=== PATIENT | male | born 1960 | race American Indian/Alaskan Native ===

== ENCOUNTER 2016-09-09 09:36 | Inpatient (IN) | payer MEDICARE, OTHER ==
[2016-09-09] MEDS ORDERED: NACL 0.9% 1000 ML 1,000 ML IV ONE (10:38)
--- NOTE | 2016-09-09 10:44 | Emergency Department Report ---
HPI - General Chief Complaint: Hyperglycemia Time Seen by Provider: 09/09/16 10:30 - HPI HPI: Room 2 The patient is a 56-year-old male presenting with a chief complaint of hyperglycemia. Family states patient appeared confused yesterday as he was "talking nonsense." Family member states the patient said things such as "food out of the stove" when there was no food there. The patient was asking where his urine was sitting right in front of him. The family member states she checked the patient's blood sugar read "high." The patient states she gave him an extra metformin and encourage him to drink water but the blood glucose remained high. Family states the patient has seemed confused and sleeping all day. The patient denies any complaints. When asked how his feeling the patient states "I feel all right." Patient denies pain of any type, shortness breath, nausea/vomiting or fever. Family states the patient has been compliant with his medications daily Location: Mental state, blood sugar Duration: Since yesterday Quality: "High", confused Severity: Moderate Modifying factors: see above Context: see above Mode of transportation: not driving ED Past Medical Hx - Past Medical History Hx Hypertension: Yes Hx CVA: Yes (with residual left-sided weakness) Hx Diabetes: Yes Additional medical history: elevated cholesterol - Surgical History Past Surgical History?: No - Family History Family history: no significant - Social History Smoking Status: Former Smoker (none for over 30 years) Substance Use Type: None (denies illicit drug use), Alcohol (occasional) - Medications Home Medications: Home Medications Medication Instructions Recorded Confirmed Last Taken Type Furosemide 40 mg PO DAILY 01/23/16 01/23/16 Unknown History Indomethacin 75 mg PO PRN 01/23/16 Unknown History Labetalol HCl 300 mg PO BID 01/23/16 Unknown History Losartan/Hydrochlorothiazide PO DAILY 01/23/16 Unknown History [Losartan-Hctz 100-25 mg Tab] NIFEdipine XL [Procardia Xl] 90 mg PO QDAY 01/23/16 Unknown History Potassium Chloride [Klor-Con] PO DAILY 01/23/16 Unknown History Pravastatin 20 mg PO DAILY 01/23/16 Unknown History cloNIDine [Catapres] 0.2 mg PO TID 01/23/16 Unknown History glipiZIDE 10 mg PO INTRAOP 01/23/16 Unknown History metFORMIN [Glucophage] 1,000 mg PO BID 01/23/16 Unknown History ED Review of Systems ROS: Stated complaint: POSS HIGH BS/CONFUSION Other details as noted in HPI Comment: All other systems reviewed and negative Constitutional: malaise. denies: fever Eyes: denies: eye pain, eye discharge, vision change ENT: denies: ear pain, throat pain Respiratory: denies: cough, shortness of breath, wheezing Cardiovascular: denies: chest pain, palpitations Endocrine: other (hyperglycemia) Gastrointestinal: denies: abdominal pain, nausea, diarrhea Genitourinary: denies: urgency, dysuria Musculoskeletal: denies: back pain, joint swelling, arthralgia Skin: denies: rash, lesions Neurological: confusion. denies: headache, weakness, paresthesias Psychiatric: denies: anxiety, depression Hematological/Lymphatic: denies: easy bleeding, easy bruising Physical Exam - Physical Exam Vital Signs: Vital Signs 09/09/16 09:53 Temperature 98.3 F Pulse Rate 77 Respiratory 18 Rate Blood Pressure 97/65 O2 Sat by Pulse 99 Oximetry Physical Exam: GENERAL: The patient is well-developed well-nourished male lying on stretcher appearing fatigued but not in acute distress. [] HEENT: Normocephalic. Atraumatic. Extraocular motions are intact. NECK: Supple. No meningitic signs are noted. Trachea midline CHEST/LUNGS: Clear to auscultation. There is no respiratory distress noted. HEART/CARDIOVASCULAR: Regular. There is no tachycardia. There is no gallop rub or murmur. ABDOMEN: Abdomen is soft, nontender. Patient has normal bowel sounds. There is no abdominal distention. SKIN: There is no rash. There is no diaphoresis. NEURO: The patient is awake, alert, and oriented. The patient is cooperative. Cranial nerves II through XII grossly intact with exception of cranial nerve XI in the left (old from previous CVA). Left upper extremity weakness and decreased tape transferrer on the left secondary to previous CVA The patient has normal speech MUSCULOSKELETAL: There is no evidence of acute injury. ED Course Vital Signs 09/09/16 09:53 Temperature 98.3 F Pulse Rate 77 Respiratory 18 Rate Blood Pressure 97/65 O2 Sat by Pulse 99 Oximetry ED Medical Decision Making - Lab Data Result diagrams: 09/09/16 11:04 09/09/16 09:57 Laboratory Tests 09/09/16 09/09/1609/09/17 09:57 10:36 10:36 WBC RBC Hgb Hct MCV MCH MCHC RDW Plt Count Lymph % (Auto) [place] % (Auto) Eos % (Auto) Baso % (Auto) Lymph # [place] # Eos # Baso # Seg Neutrophils % Seg Neutrophils # VBG pH Sodium 114 L* Potassium 6.6 H* Chloride 77.0 L Carbon Dioxide 15 L Anion Gap 29 BUN 77 H Creatinine 4.9 H Estimated GFR 15 BUN/Creatinine Ratio 15.71 Glucose 759 H* Calcium 8.8 Total Creatine Kinase 5141 H CK-MB (CK-2) 89.1 H CK-MB (CK-2) Rel Index 1.7 Troponin T 0.102 H* Triglycerides 491 H Cholesterol 132 LDL Cholesterol Direct TNR HDL Cholesterol 22 L Cholesterol/HDL Ratio 6.00 TSH 0.840 Free T4 1.37 Ketones 09/09/16 09/09/16 11:04 11:04 WBC 10.1 RBC 4.18 Hgb 10.8 L Hct 33.8 L MCV 81 L MCH 26 L MCHC 32 RDW 19.8 H Plt Count Lymph % (Auto) 11.2 L [place] % (Auto) 7.7 H Eos % (Auto) 1.3 Baso % (Auto) 0.5 Lymph # 1.1 L [place] # 0.7 Eos # 0.1 Baso # 0.1 Seg Neutrophils % 79.3 H Seg Neutrophils # 7.7 VBG pH 7.280 L Sodium Potassium Chloride Carbon Dioxide Anion Gap BUN Creatinine Estimated GFR BUN/Creatinine Ratio Glucose Calcium Total Creatine Kinase CK-MB (CK-2) CK-MB (CK-2) Rel Index Troponin T Triglycerides Cholesterol LDL Cholesterol Direct HDL Cholesterol Cholesterol/HDL Ratio TSH Free T4 Ketones - EKG Data -: EKG Interpreted by [place] EKG shows normal: sinus rhythm Rate: normal - EKG Data When compared to previous EKG there are: previous EKG unavailable Interpretation: other (no acute ischemic changes seen.) - Radiology Data Radiology results: report reviewed (CT head), image reviewed (CT head) CT head (read by radiologist)-no acute intracranial abnormality - Differential Diagnosis DKA, ICH, dehydration, hyperglycemia Critical care attestation.: If time is entered above; I have spent that time in minutes in the direct care of this critically ill patient, excluding procedure time. ED Disposition Clinical Impression: Acute renal failure, DKA (diabetic ketoacidoses), Rhabdomyolysis Disposition: OP ADMITTED IP TO THIS HOSP Is pt being admited?: Yes Does the pt Need Aspirin: No Condition: Serious Instructions: Diabetic Ketoacidosis (ED) Referrals: PRIMARY CARE, [Primary Care Provider] - 3-5 Days Time of Disposition: 12:08 (hospitalist paged)
[2016-09-09 11:16] LABS: Eosinophils % (Auto) 1.3 % (0.0-4.3)
[2016-09-09 11:29] LABS: Hematocrit 33.8 % (35.5-45.6); Hemoglobin 10.8 gm/dl (11.8-15.2); Mean Corpuscular HGB Conc 32 % (32-34); Mean Corpuscular Hemoglobin 26 pg (28-32); Mean Corpuscular Volume 81 fl (84-94); Red Blood Count 4.18 M/mm3 (3.65-5.03); Red Cell Distribution Width 19.8 % (13.2-15.2); White Blood Count 10.1 K/mm3 (4.5-11.0)
[2016-09-09 11:30] LABS: Basophils % (Auto) 0.5 % (0.0-1.8)
[2016-09-09 11:38] LABS: BUN/Creatinine Ratio 15.71; Calcium 8.8 mg/dL (8.4-10.2)
[2016-09-09 11:40] LABS: Potassium 6.6 mmol/L (3.6-5.0)
[2016-09-09 11:40] LABS: Creatine Kinase MB 89.1 ng/mL (0.0-4.0)
[2016-09-09] MEDS ORDERED: D50W (25GM) IV PRN ×4 (11:44→13:55)
[2016-09-09 11:54] LABS: Cholesterol 132 mg/dL (50-199); HDL Cholesterol 22 mg/dL (40-59); LDL Cholesterol,Direct TNR mg/dL (50-130); Triglycerides 491 mg/dL (2-149)
[2016-09-09] MEDS ORDERED: NovoLIN R 100 UNITS in NACL 0.9% 99 ML IV SCH ×2 (12:00→14:00)
--- NOTE | 2016-09-09 12:00 | Admit Criteria Form ---
Admission Criteria Documentation: DIABETES Clinical Indications for Admission to Inpatient Care (Place 'X' for any and all applicable criteria): Admission is indicated by presence of ALL (if I & II) or ANY ONE (if III or IV) of the following (1)(2)(3)(4): [X ]I. Diabetes is uncontrolled as indicated by ANY ONE of the following: [ X]a) Diabetic ketoacidosis as indicated by ALL of the following (8): [ X]i) Hyperglycemia (eg, plasma glucose greater than 200 mg /dL (11.1 mmol/L)) [X ]ii) Acidosis (eg, arterial pH less than 7.30, serum bicarbonate level less than 15 mEq/L (mmol/L)) [X ]iii) Moderate ketonuria or ketonemia [ ]b) Hyperglycemic hyperosmolar state as indicated by ALL of the following(9)(10): [ ]i) Neurologic dysfunction (eg, stupor, coma, hemiparesis , seizure)(13) [ ]ii) Plasma glucose greater than 600 mg/dL (33.3 mmol/L) [ ]iii) Serum osmolality greater than 320 mOsm/kg (mmol/kg) [X ]c) Severe signs or symptoms secondary to hyperglycemia indicated by ANY ONE of the following: [ ]i) Altered mental status(10) [ ]ii) Significant hypovolemia or dehydration [ ]iii) Intractable nausea or vomiting [ ]iv) Unexplained fever or severe infection [X ]v) Severe electrolyte abnormality (eg, hypokalemia, hyperkalemia, hypernatremia) [X ]II. Management at other levels of care (Also use Diabetes: Observation Care as appropriate) is not feasible because of ANY ONE of the following: [X ]a) Condition was not adequately corrected with treatment at other levels of care. [ ]b) Treatment at other levels of care is not appropriate because of condition severity (eg, hyperosmolar coma). [ ]III. Contraindications and/or Inappropriate clinical situations for Observational Care in patients with Diabetes, when ANY ONE of the following is required: [ ]a) Patient require specific diagnostic workup or therapeutic intervention 22 [ ]b) Patient with abnormal vital signs or altered mental status 23 [ ]IV. General contraindications and/or Inappropriate clinical situations for Observational Care in patients with Diabetes, when ANY ONE of the following is required: [ ]a) Prediction of prolongation of LOS based on ANY ONE of the following may be considered as a contraindication for observational care 2, 3, 4, 5, 6, 7, 8, 9, 10, 11 [ ]i) Age > 65 yrs. [ ]ii) Patient arriving by ambulance [ ]iii) Patient with high acuity [ ]iv) Patient requiring vital sign monitoring [ ]v) Patient on IV medication [ ]b) Systolic blood pressures 180mmHg 3,12 [ ]c) Patient with altered mental status including delirium and other alteration of consciousness, (3) [ ]d) Patient whose discharge disposition will be to a prison home or rehabilitation home should not be managed in Emergency Department Observation Unit. CMS rule requires 3 days hospital stay before such placement.3,13 [ ]e) Patient with failure to thrive due to broad array of etiologies 3,16,17 [ ]f) Inability to ambulate 3,14 Extended stay beyond goal length of stay may be needed for(3)(20): [ ]a) Treatment of precipitating causes [ ]b) Development of hypoglycemia [ ]c) Complications of treatment [ ]d) Complications of decompensated diabetes (eg, acute gastric dilatation, persistent metabolic or neurologic derangement) [ ]e) Active Comorbidities [ ]f) Older patients( 65 years or older) The original [facility] content created by [employer] has been revised. The portions of the content which have been revised are identified through the use of italic text or in bold,and [facility] has neither reviewed nor approved the modified material. All other unmodified content is copyright [facility]. Please see references footnoted in the original [facility] edition 2016 Admission Criteria Met: Yes
[2016-09-09 12:07] LABS: Creatine Kinase 5141 units/L (55-170)
--- NOTE | 2016-09-09 12:10 | Cat Scan Report ---
CT scan of head without contrast: Findings: Ventricles are normal in size and midline in location. No definite evidence of acute ischemia or hemorrhage. Periventricular area of low attenuation. Chronic ischemia right cerebellum. No extra-axial fluid collection. Normal sinuses and mastoid air cells. Impression: No acute intracranial abnormality.
[2016-09-09 12:36] LABS: BUN/Creatinine Ratio 15.83; Calcium 8.6 mg/dL (8.4-10.2); Chloride 82.1 mmol/L (98-107); Potassium 5.9 mmol/L (3.6-5.0)
[2016-09-09 12:47] LABS: Magnesium 2.5 mg/dL (1.7-2.3); Phosphorous 5.1 mg/dL (2.5-4.5)
[2016-09-09 13:00] LABS: Platelet Count 167 K/mm3 (140-440)
[2016-09-09] MEDS ORDERED: ZOFRAN IV PRN (13:55)
[2016-09-09] MEDS ORDERED: MILK OF MAGNESIA PO PRN (13:55)
[2016-09-09] MEDS ORDERED: MORPHINE IV PRN (13:55)
[2016-09-09] MEDS ORDERED: ALUM-MAG HYDROX-SIMETH 200-200-20MG/5ML PO PRN (13:55)
[2016-09-09] MEDS ORDERED: DULCOLAX PR PRN (13:55)
[2016-09-09] MEDS ORDERED: KCL 10MEQ/100ML 10 MEQ/100 ML BAG IV SCH (14:00)
[2016-09-09] MEDS ORDERED: D5W/0.45% NACL/KCL 20 MEQ 20 MEQ/1,000 ML BAG IV SCH (14:00)
[2016-09-09] MEDS ORDERED: APRESOLINE IV PRN (14:07)
--- NOTE | 2016-09-09 14:18 | History and Physical Report ---
History of Present Illness Date of examination: 09/09/16 Date of admission: 09/09/2016 Chief complaint: Altered mental status encephalopathy History of present illness: Patient 56-year-old male well known to myself history of CVA, hypertension, diabetes, hyperlipidemia. Patient. Was in the usual state of health doing well until yesterday at approximately 3 PM noted patient not acting the same. stated patient started repeating himself and had some hallucinations such as take the food out of the stove when there was nothing cooking. Denied fever. states at that this did not improve she called 911 to come to the hospital. Upon hospital at this time patient is still not his usual self but better. He is able to communicate without any hallucinations. at the bedside stating patient immediately got better after some fluids. Patient recently seen in the office A1c was 6.4 blood pressure had optimal control. Lasts chemistry did not show any evidence of renal failure. At this time patient did state that he had episode of incontinence of urine now and this is atypical for him. Patient states despite drinking water the last 24 hours he had a decrease in urine output. Present patient denies any pain denies any shortness of breath no different exertion orthopnea no PND. He does explain a generalized malaise. Past History Past Medical History: arrhythmia, arthritis, diabetes, hypertension, hyperlipidemia, stroke. denies: acute OH, atrial fib, anemia, CAD, cancer, COPD , dialysis, DVT, ESRD, GERD, heart failure, hepatitis, HIV/AIDS, hyperthyroidism , hypothyroidism, liver disease, migraines, PVD, pulmonary embolism, renal failure, seizures Past Surgical History: No surgical history Social history: , lives with family, full code. denies: smoking, alcohol abuse, prescription drug abuse, IV drug use Family history: diabetes, hypertension Medications and Allergies Allergies Allergy/AdvReac Type Severity Reaction Status Date / Time No Known Allergies Allergy Unverified 01/23/16 10:13 Home Medications Medication Instructions Recorded Confirmed Last Taken Type Furosemide 40 mg PO DAILY 01/23/16 09/09/16 Unknown History Indomethacin 75 mg PO BID PRN 01/23/16 09/09/16 Unknown History Labetalol HCl 300 mg PO BID 01/23/16 09/09/16 Unknown History Losartan/Hydrochlorothiazide 1 tab PO DAILY 01/23/16 09/09/16 Unknown History [Losartan-Hctz 100-25 mg Tab] NIFEdipine XL [Procardia Xl] 90 mg PO QDAY 01/23/16 09/09/16 Unknown History Potassium Chloride [Klor-Con] 20 meq PO DAILY 01/23/16 09/09/16 Unknown History Pravastatin 20 mg PO DAILY 01/23/16 09/09/16 Unknown History cloNIDine [Catapres] 0.2 mg PO TID 01/23/16 09/09/16 Unknown History glipiZIDE 10 mg PO DAILY 01/23/16 09/09/16 Unknown History metFORMIN [Glucophage] 850 mg PO DAILY 01/23/16 09/09/16 Unknown History Active Meds: Active Medications Dextrose (D50w (25gm)) 0 ml IV ONCE PRN PRN Reason: Hypoglycemia Insulin Human Regular 100 (units/ Sodium Chloride) 100 mls @ 8 mls/hr IV TITR JUAN ALBERTO; 8 UNITS/HR PRN Reason: Protocol Last Admin: 09/09/16 13:14 Dose: 8 units/hr, 8 mls/hr Review of Systems Constitutional: fatigue, weakness, malaise, no weight loss, no weight gain, no fever, no chills, no sweats, no night sweats, no anorexia, no lethargy, no chronic headaches, no poor appetite, no daytime sleepiness, no chronic pain Ears, nose, mouth and throat: no ear pain, no nasal congestion, no dental pain, no dysphagia, no hoarseness, no swelling in throat, no voice changes, no headache, no vertigo, no pain front of neck, no neck fullness/pressure, no neck lump Cardiovascular: no chest pain, no orthopnea, no palpitations, no rapid/ irregular heart beat, no edema, no syncope, no lightheadedness, no shortness of breath, no dyspnea on exertion, no paroxysmal nocturnal dyspnea, no claudication , no phlebitis, no high blood pressure, no leg edema, no decreased exercise tolerance Respiratory: no cough, no cough with sputum, no excessive sputum, no hemoptysis , no dyspnea on exertion, no congestion, no wheezing, no pain, no pain on inspiration, no respiratory infections, no home oxygen, no other Gastrointestinal: nausea, no abdominal pain, no vomiting, no diarrhea, no constipation, no change in bowel habits, no hematemesis, no coffee ground emesis , no BRBPR, no melena, no hematochezia, no loss of appetite, no early satiety, no heartburn, no indigestion, no excessive gas, no dyspepsia/bloating, no early satiety Genitourinary Male: dysuria, urinary frequency, urinary hesitancy, erectile dysfunction, polyuria, urinary retention, no hematuria, no flank pain, no discharge, no nocturia, no incontinence, no genital pain, no genital sores, no impotence, no decreased libido, no testicular pain, no testicular lump, no difficulties fathering child, no kidney stones Rectal: no pain, no incontinence, no bleeding, no itching, no hemorrhoids Musculoskeletal: no neck stiffness, no neck pain, no shooting arm pain, no arm numbness/tingling, no hot joints, no muscle weakness, no myalgias, no atrophy, no frequent falls, no fractures, no loss of height, no prior amputations, no arthritis Neurological: change in mentation, confusion, no head injury, no transient paralysis, no paralysis, no weakness, no parathesias, no numbness, no tingling, no seizures, no syncope, no tremors, no ataxia, no vertigo, no headaches, no migraines, no tic, no convulsions, no aphasia, no memory loss, no changes in smell/taste, no gait dysfunction, no motor disturbance, no sensory deficit, no double vision, no loss of vision, no hearing difficulties, no paralysis, no spasticity Psychiatric: no insomnia, no hypersomnia, no suicidal ideation, no paranoia, no depression, no hopelessness, no anhedonia, no difficulties concentrating, no confusion, no irritability Endocrine: polyphagia, excessive thirst, high blood sugars, fatigue, no cold intolerance, no polydipsia, no polyuria, no nocturia, no excessive sweating, no flushing, no increase in ring/shoe/hat size, no deepening of the voice, no palpatations, no recent glucocorticoid use Hematologic/Lymphatic: no easy bruising, no easy bleeding, no lymphadenopathy, no lymphedema, no other Allergic/Immunologic: no urticaria, no wheezing, no anaphylaxis, no gluten intolerance, no seasonal allergies, no other Exam - Constitutional Vitals: Temp Pulse Resp BP Pulse Ox 98.3 F 70 14 101/71 97 09/09/16 09:53 09/09/16 13:30 09/09/16 13:30 09/09/16 13:30 09/09/16 13:30 General appearance: Present: no acute distress, well-nourished - EENT Eyes: Present: PERRL ENT: hearing intact, clear oral mucosa, dentition normal - Neck Neck: Present: supple, normal ROM. Absent: rigidity, enlarged thyroid, masses or JVD, carotid bruits - Respiratory Respiratory effort: normal Respiratory: bilateral: CTA - Cardiovascular Rhythm: regular Heart Sounds: Present: S1 & S2, gallop - Extremities Extremities: pulses intact, pulses symmetrical, No edema, normal temperature, Full ROM Peripheral Pulses: within normal limits - Abdominal General gastrointestinal: Present: soft, non-tender, non-distended, rigid, normal bowel sounds. Absent: hypoactive bowel sounds, absent bowel sounds, hepatomegaly, splenomegaly, mass, hernia Male genitourinary: Present: tender. Absent: right inguinal hernia, left inguinal hernia, penile edema, scrotal edema, right inguinal lymphadenopathy, left inguinal lymphadenopathy - Rectal Rectal Exam: deferred - Integumentary Integumentary: Present: clear, warm - Musculoskeletal Musculoskeletal: generalized weakness - Psychiatric Psychiatric: intact judgment & insight, cooperative - Neurologic Neurologic: focal deficits, other (dense hemiparesis) Results - Labs CBC & Chem 7: 09/09/16 11:04 09/09/16 12:11 Labs: Laboratory Last Values WBC 10.1 K/mm3 (4.5-11.0) 09/09/16 11:04 RBC 4.18 M/mm3 (3.65-5.03) 09/09/16 11:04 Hgb 10.8 gm/dl (11.8-15.2) L 09/09/16 11:04 Hct 33.8 % (35.5-45.6) L 09/09/16 11:04 MCV 81 fl (84-94) L 09/09/16 11:04 MCH 26 pg (28-32) L 09/09/16 11:04 MCHC 32 % (32-34) 09/09/16 11:04 RDW 19.8 % (13.2-15.2) H 09/09/16 11:04 Plt Count 167 K/mm3 (140-440) 09/09/16 11:04 Lymph % (Auto) 11.2 % (13.4-35.0) L 09/09/16 11:04 [place] % (Auto) 7.7 % (0.0-7.3) H 09/09/16 11:04 Eos % (Auto) 1.3 % (0.0-4.3) 09/09/16 11:04 Baso % (Auto) 0.5 % (0.0-1.8) 09/09/16 11:04 Lymph # 1.1 K/mm3 (1.2-5.4) L 09/09/16 11:04 [place] # 0.7 K/mm3 (0.0-0.8) 09/09/16 11:04 Eos # 0.1 K/mm3 (0.0-0.4) 09/09/16 11:04 Baso # 0.1 K/mm3 (0.0-0.1) 09/09/16 11:04 Seg Neutrophils % 79.3 % (40.0-70.0) H 09/09/16 11:04 Seg Neutrophils # 7.7 K/mm3 (1.8-7.7) 09/09/16 11:04 VBG pH 7.280 (7.320-7.420) L 09/09/16 11:04 Sodium 118 mmol/L (137-145) L* 09/09/16 12:11 Potassium 5.9 mmol/L (3.6-5.0) H 09/09/16 12:11 Chloride 82.1 mmol/L (98-107) L 09/09/16 12:11 Carbon Dioxide 16 mmol/L (22-30) L 09/09/16 12:11 Anion Gap 26 mmol/L 09/09/16 12:11 BUN 76 mg/dL (9-20) H 09/09/16 12:11 Creatinine 4.8 mg/dL (0.8-1.5) H 09/09/16 12:11 Estimated GFR 15 ml/min 09/09/16 12:11 BUN/Creatinine Ratio 15.83 % 09/09/16 12:11 Glucose 726 mg/dL (75-100) H* 09/09/16 12:11 Calcium 8.6 mg/dL (8.4-10.2) 09/09/16 12:11 Phosphorus 5.1 mg/dL (2.5-4.5) H 09/09/16 12:11 Magnesium 2.5 mg/dL (1.7-2.3) H 09/09/16 12:11 Total Creatine Kinase 5141 units/L (55-170) H 09/09/16 10:36 CK-MB (CK-2) 89.1 ng/mL (0.0-4.0) H 09/09/16 10:36 CK-MB (CK-2) Rel Index 1.7 (0-4) 09/09/16 10:36 Troponin T 0.102 ng/mL (0.00-0.029) H* 09/09/16 10:36 Triglycerides 491 mg/dL (2-149) H 09/09/16 10:36 Cholesterol 132 mg/dL (50-199) 09/09/16 10:36 LDL Cholesterol Direct TNR 09/09/16 10:36 HDL Cholesterol 22 mg/dL (40-59) L 09/09/16 10:36 Cholesterol/HDL Ratio 6.00 % 09/09/16 10:36 TSH 0.840 mlU/mL (0.270-4.200) 09/09/16 10:36 Free T4 1.37 ng/dL (0.76-1.46) 09/09/16 10:36 Plasma/Serum Alcohol < 0.01 gm% (0-0.07) 09/09/16 10:37 Ketones mmol/L (-0.28) 09/09/16 09:57 - Imaging and Cardiology CT Scan - head: image reviewed Assessment and Plan Assessment and plan: Patient did require 46 minutes of face time secondary to the high probability of clinically significant and sudden life threatening deterioration. Patient will cry more full attention and time spent performing reportable procedures including but not limited to data review and interpretation patient assessment and monitoring of vital signs and electrolytes and documentation and medication orders and management as well as discussion with the we'll plan a care advance directives. So spent another 14 minutes of coordination of care with review bilateral renal ultrasound chest x-ray, urine. Advance Directives: Yes VTE prophylaxis?: Chemical Plan of care discussed with patient/family: Yes - Patient Problems (1) Encephalopathy acute Current Visit: Yes Status: Acute Plan to address problem: Patient with acute encephalopathy unclear of exact etiology most likely multifactorial DKA and sepsis. Patient had foul-smelling urine and was unable to obtain urine at this point. Patient also was hypotensive with decreased urine output foul-smelling urine evidence of dehydration. Asked highly suspect underlying sepsis and we will treat with Rocephin. Symptoms have improved with IV volume hydration. Still need to hold antihypertensives for now. (2) Acute renal failure Current Visit: Yes Status: Acute Qualifiers: Acute renal failure type: A Plan to address problem: Patient with acute renal failure. This may be acute on chronic renal failure. Clearly the patient has DKA however will need to rule out chronic kidney disease versus postobstructive uropathy. Patient's last chemistry showed no evidence of chronic kidney disease at all. So this could all be prerenal azotemia however need to rule out chronic kidney disease and obstruction. Since patient did have a decreased urine output. We'll order bilateral renal ultrasound. Follow-up chemistries in continue aggressive fluid with DKA protocol. (3) DKA (diabetic ketoacidoses) Current Visit: Yes Status: Acute Qualifiers: Diabetes mellitus type: type 1 Diabetes mellitus complication detail: D Plan to address problem: Ration with DKA was sustain off insulin. This is why I'm afraid may have a trigger for the DKA such as infection. Have not been totally ruled out we'll obtain chest x-ray we'll also obtain a UA when available. His blood sugars of greater than 700 address a direct on venous pH and chemistry as well. Patient also had hyperkalemia. We'll treat DKA protocol. Obtain electrolytes and correct magnesium and potassium as indicated. Place patient on insulin drip and may require insulin as outpatient now. (4) Rhabdomyolysis Current Visit: Yes Status: Acute Qualifiers: Rhabdomyolysis type: R Encounter type: E Plan to address problem: Rhabdomyolysis most likely secondary to DKA renal failure. Treat with IV hydration. Correction of underlying etiology which is DKA (5) Hyperkalemia Current Visit: No Status: Acute Plan to address problem: Secondary to DKA we'll correct (6) Sepsis Current Visit: Yes Status: Acute Qualifiers: Sepsis type: S Plan to address problem: Highly suspect sepsis in this individual as evidence by my previous evaluation. We'll treat with Rocephin now and obtain blood cultures. Will titrate medical management when microbiology has been completed. (7) Hyponatremia Current Visit: Yes Status: Acute Plan to address problem: Hypernatremia for DKA this corrects when taking Accolate patient's for glucose.
--- NOTE | 2016-09-09 14:58 | XRay Report ---
AP CHEST: HISTORY: Short of breath AP view of the chest demonstrates a normal mediastinal and cardiac contour with clear lungs and normal bony and soft tissue structures. IMPRESSION: Unremarkable AP chest.
[2016-09-09 15:41] LABS: Magnesium 2.7 mg/dL (1.7-2.3)
[2016-09-09 15:58] LABS: BUN/Creatinine Ratio 16.73; Calcium 9.1 mg/dL (8.4-10.2); Chloride 88.1 mmol/L (98-107)
--- NOTE | 2016-09-09 16:02 | Ultrasound Report ---
Renal sonogram: History: Renal failure. Findings: Right kidney 10.4 x 4.1 x 5.0 cm. Cortical thickness 1.1 cm. Left kidney 10.5 x 5.1 x 5.1 cm. Cortical thickness 1.3 cm. Cyst left kidney measures 1.7 x 1.1 x 1.5 cm. Impression: Cyst left kidney.
[2016-09-09 16:33] LABS: Urine Drugs of Abuse Note Disclamer
[2016-09-09 16:48] LABS: Bacteria,Urine 1+ /HPF (Negative); Bilirubin,Urine NEG (Negative); Blood,Urine MOD (Negative); Ketones,Urine NEG (Negative); Leukocyte Esterase,Urine NEG (Negative); Mucus,Urine FEW /HPF; Nitrite,Urine NEG (Negative); Protein,Urine <15 mg/dL mg/dL (Negative); Urobilinogen,Urine < 2.0 mg/dL (<2.0)
[2016-09-09] MEDS: ROCEPHIN/NS 1 GM/50 ML 1 GM/50 ML BAG IV SCH (17:38)
[2016-09-09] MEDS ORDERED: NACL 0.9% 1000 ML 0 ML ONE (19:52)
[2016-09-09] MEDS ORDERED: NACL 0.9% 500 ML 500 ML ONE (19:55)
[2016-09-09] MEDS: CATAPRES PO SCH (20:15)
[2016-09-09] MEDS ORDERED: NACL 0.9% 500 ML 500 ML IV ONE (21:17)
[2016-09-09 21:24] LABS: BUN/Creatinine Ratio 16.04; Calcium 9.5 mg/dL (8.4-10.2); Chloride 92.8 mmol/L (98-107); Potassium 4.9 mmol/L (3.6-5.0)
[2016-09-09] MEDS: NovoLIN R 100 UNITS in NACL 0.9% 99 ML IV SCH (21:40)
[2016-09-09] MEDS: D5/0.45NS 1,000 ML IV SCH (21:49)
[2016-09-09] MEDS: NORMODYNE PO SCH (21:51)
[2016-09-09] MEDS ORDERED: NON-FORMULARY (Labetalol Hcl [Labetalol Hcl] 300 MG) PO SCH (22:00)
[2016-09-10 00:07] LABS: BUN/Creatinine Ratio 17.11; Potassium 4.6 mmol/L (3.6-5.0)
[2016-09-10] MEDS: D5/0.45NS 1,000 ML IV SCH (05:16)
[2016-09-10 05:58] LABS: BUN/Creatinine Ratio 19.25; Calcium 8.6 mg/dL (8.4-10.2); Chloride 96.4 mmol/L (98-107); Potassium 3.6 mmol/L (3.6-5.0)
[2016-09-10 06:01] LABS: Basophils % (Auto) 0.7 % (0.0-1.8); Eosinophils % (Auto) 3.5 % (0.0-4.3); Hematocrit 35.7 % (35.5-45.6); Hemoglobin 11.6 gm/dl (11.8-15.2); Mean Corpuscular HGB Conc 32 % (32-34); Mean Corpuscular Hemoglobin 26 pg (28-32); Mean Corpuscular Volume 81 fl (84-94); Platelet Count 121 K/mm3 (140-440); Red Cell Distribution Width 18.8 % (13.2-15.2); White Blood Count 7.9 K/mm3 (4.5-11.0)
[2016-09-10] MEDS: NovoLIN R 100 UNITS in NACL 0.9% 99 ML IV SCH (08:00)
--- NOTE | 2016-09-10 09:10 | Consultation ---
History of Present Illness - Reason for Consult Consult date: 09/10/16 DKA, metabolic acidosis Requesting physician: SHIRIN MENA - History of Present Illness 56 y/o male admitted with encephalopathy and found to have elevated blood sugar , metabolic acidosis and DKA. Past History Past Medical History: arrhythmia, arthritis, diabetes, hypertension, hyperlipidemia, stroke. denies: acute HI, atrial fib, anemia, CAD, cancer, COPD , dialysis, DVT, ESRD, GERD, heart failure, hepatitis, HIV/AIDS, hyperthyroidism , hypothyroidism, liver disease, migraines, PVD, pulmonary embolism, renal failure, seizures Past Surgical History: No surgical history Social history: , lives with family, full code. denies: smoking, alcohol abuse, prescription drug abuse, IV drug use Family history: diabetes, hypertension Medications and Allergies Allergies Allergy/AdvReac Type Severity Reaction Status Date / Time No Known Allergies Allergy Unverified 01/23/16 10:13 Home Medications Medication Instructions Recorded Confirmed Last Taken Type Furosemide 40 mg PO DAILY 01/23/16 09/09/16 Unknown History Indomethacin 75 mg PO BID PRN 01/23/16 09/09/16 Unknown History Labetalol HCl 300 mg PO BID 01/23/16 09/09/16 Unknown History Losartan/Hydrochlorothiazide 1 tab PO DAILY 01/23/16 09/09/16 Unknown History [Losartan-Hctz 100-25 mg Tab] NIFEdipine XL [Procardia Xl] 90 mg PO QDAY 01/23/16 09/09/16 Unknown History Potassium Chloride [Klor-Con] 20 meq PO DAILY 01/23/16 09/09/16 Unknown History Pravastatin 20 mg PO DAILY 01/23/16 09/09/16 Unknown History cloNIDine [Catapres] 0.2 mg PO TID 01/23/16 09/09/16 Unknown History glipiZIDE 10 mg PO DAILY 01/23/16 09/09/16 Unknown History metFORMIN [Glucophage] 850 mg PO DAILY 01/23/16 09/09/16 Unknown History Active Meds: Active Medications Al Hydrox/Mg Hydrox/Simethicone (Alum-Mag Hydrox-Simeth 842-224-08se/5ml) 30 ml PO Q4H PRN PRN Reason: Indigestion Bisacodyl (Dulcolax) 10 mg [place] QDAY PRN PRN Reason: constipation unrelieved by MOM Clonidine HCl (Catapres) 0.2 mg PO TID [facility] Last Admin: 09/09/16 20:15 Dose: Not Given Enoxaparin Sodium (Lovenox) 30 mg SUB-Q QDAY [facility] Hydralazine HCl (Apresoline) 10 mg IV Q4HR PRN PRN Reason: Hypertension SYS>160 Ceftriaxone Sodium (Rocephin/Ns 1 Gm/50 Ml) 1 gm in 50 mls @ 100 mls/hr IV Q24HR JUAN ALBERTO PRN Reason: Protocol Last Admin: 09/09/16 17:38 Dose: 100 mls/hr Dextrose/Sodium Chloride (D5/0.45ns) 1,000 mls @ 125 mls/hr IV DIRECT [facility] Last Admin: 09/10/16 05:16 Dose: 125 mls/hr Insulin Aspart (Novolog) 0 units SUB-Q ACHS [facility] PRN Reason: Protocol Labetalol HCl (Normodyne) 300 mg PO BID [facility] Last Admin: 09/09/16 21:51 Dose: Not Given Magnesium Hydroxide (Milk Of Magnesia) 30 ml PO Q4H PRN PRN Reason: Constipation Morphine Sulfate (Morphine) 2 mg IV Q4H PRN PRN Reason: Pain, Moderate (4-6) Nifedipine (Procardia Xl) 90 mg PO QDAY [facility] Ondansetron HCl (Zofran) 4 mg IV Q8H PRN PRN Reason: N/V unrelieved by Reglan Review of Systems All systems: negative Exam - Constitutional Vitals: Temp Pulse Resp BP Pulse Ox 98 F 70 15 121/77 99 09/10/16 08:00 09/10/16 08:30 09/10/16 08:30 09/10/16 08:30 09/10/16 08:30 General appearance: Present: no acute distress, well-nourished, other (eating) - EENT Eyes: Present: PERRL (strabismus) ENT: hearing intact, clear oral mucosa - Neck Neck: Present: supple, normal ROM - Respiratory Respiratory effort: normal Respiratory: bilateral: CTA - Cardiovascular Rhythm: regular Heart Sounds: Present: S1 & S2 - Extremities Extremities: no ischemia, No edema - Abdominal General gastrointestinal: Present: soft, non-tender Male genitourinary: Present: deferred - Rectal Rectal Exam: deferred - Integumentary Integumentary: Present: clear, warm - Musculoskeletal Musculoskeletal: strength equal bilaterally - Psychiatric Psychiatric: appropriate mood/affect - Neurologic Neurologic: CNII-XII intact Results - Labs CBC & Chem 7: 09/10/16 04:11 09/10/16 04:11 Labs: Abnormal lab results 09/09/16 09/09/16 09/09/16 Range/Units 15:14 15:14 20:21 Hgb (11.8-15.2) gm/dl MCV (84-94) fl MCH (28-32) pg RDW (13.2-15.2) % Plt Count (140-440) K/mm3 Ness % (Auto) (0.0-7.3) % Sodium 126 L D 131 L (137-145) mmol/L Chloride 88.1 L 92.8 L (98-107) mmol/L Carbon Dioxide 16 L 15 L (22-30) mmol/L BUN 77 H 77 H (9-20) mg/dL Creatinine 4.6 H 4.8 H (0.8-1.5) mg/dL Glucose 511 H* 120 H (75-100) mg/dL Phosphorus 5.0 H (2.5-4.5) mg/dL Magnesium 2.7 H (1.7-2.3) mg/dL 09/09/16 09/10/16 09/10/16 Range/Units 23:13 04:11 04:11 Hgb 11.6 L (11.8-15.2) gm/dl MCV 81 L (84-94) fl MCH 26 L (28-32) pg RDW 18.8 H (13.2-15.2) % Plt Count 121 L (140-440) K/mm3 Ness % (Auto) 8.0 H (0.0-7.3) % Sodium 129 L 132 L (137-145) mmol/L Chloride 92.0 L 96.4 L (98-107) mmol/L Carbon Dioxide 18 L 18 L (22-30) mmol/L BUN 77 H 77 H (9-20) mg/dL Creatinine 4.5 H 4.0 H (0.8-1.5) mg/dL Glucose 174 H 167 H (75-100) mg/dL Phosphorus (2.5-4.5) mg/dL Magnesium (1.7-2.3) mg/dL 09/10/16 Range/Units 04:11 Hgb (11.8-15.2) gm/dl MCV (84-94) fl MCH (28-32) pg RDW (13.2-15.2) % Plt Count (140-440) K/mm3 Ness % (Auto) (0.0-7.3) % Sodium (137-145) mmol/L Chloride (98-107) mmol/L Carbon Dioxide (22-30) mmol/L BUN (9-20) mg/dL Creatinine (0.8-1.5) mg/dL Glucose (75-100) mg/dL Phosphorus 4.9 H (2.5-4.5) mg/dL Magnesium (1.7-2.3) mg/dL - Imaging and Cardiology Chest x-ray: image reviewed (clear) Assessment and Plan 1. Primary has already stopped insulin, needs long acting insulin but primary only placed high dosed sliding scale 2. Primary started on abx therapy. Will defer to them 3. Continue volume resuscitation 4. Stable for transfer out of ICU
[2016-09-10] MEDS: CATAPRES PO SCH ×3 (09:39→21:47)
[2016-09-10] MEDS: NORMODYNE PO SCH ×2 (09:39→21:47)
[2016-09-10] MEDS: ROCEPHIN/NS 1 GM/50 ML 1 GM/50 ML BAG IV SCH (09:39)
[2016-09-10] MEDS: PROCARDIA XL PO SCH (09:39)
[2016-09-10] MEDS: LOVENOX SUB-Q SCH (09:40)
--- NOTE | 2016-09-10 10:08 | Consultation ---
History of Present Illness - Reason for Consult Consult date: 09/10/16 acute renal failure, chronic renal failure, hyperkalemia, metabolic acidosis - History of Present Illness Patient is a 56-year-old AAM with medical history significant for DM type 2, Hypertension, history of CVA, Left hemiplegia, hyperlipidemia and CKD ?stage was brought into the hospital by the family for altered MS. History is mostly obtained from his who was at the bedside, as patient couldn't remember the events. Per patient was confused and had hallucinations. He had a decreased urine output of one day duration. On presentation he was found to have DKA, blood sugar of 749, potassium of 6.6, Sodium 114 and creatinine 4.9. The metabolic parameters are much better today. His baseline creatinine ia around 2 and he is currently not followed by any [employer]. Insulin drip was stopped this morning. His MS is better today. There was no h/o N, V, D, dysuria, hematuria, fever, dizziness, cough, cp, sob, rash, abd pain of syncope. Past History Past Medical History: arrhythmia, arthritis, diabetes, hypertension, hyperlipidemia, stroke. denies: acute TN, atrial fib, anemia, CAD, cancer, COPD , dialysis, DVT, ESRD, GERD, heart failure, hepatitis, HIV/AIDS, hyperthyroidism , hypothyroidism, liver disease, migraines, PVD, pulmonary embolism, renal failure, seizures Past Surgical History: No surgical history Social history: , lives with family, full code. denies: smoking, alcohol abuse, prescription drug abuse, IV drug use Family history: diabetes, hypertension Medications and Allergies Allergies Allergy/AdvReac Type Severity Reaction Status Date / Time No Known Allergies Allergy Unverified 01/23/16 10:13 Home Medications Medication Instructions Recorded Confirmed Last Taken Type Furosemide 40 mg PO DAILY 01/23/16 09/09/16 Unknown History Indomethacin 75 mg PO BID PRN 01/23/16 09/09/16 Unknown History Labetalol HCl 300 mg PO BID 01/23/16 09/09/16 Unknown History Losartan/Hydrochlorothiazide 1 tab PO DAILY 01/23/16 09/09/16 Unknown History [Losartan-Hctz 100-25 mg Tab] NIFEdipine XL [Procardia Xl] 90 mg PO QDAY 01/23/16 09/09/16 Unknown History Potassium Chloride [Klor-Con] 20 meq PO DAILY 01/23/16 09/09/16 Unknown History Pravastatin 20 mg PO DAILY 01/23/16 09/09/16 Unknown History cloNIDine [Catapres] 0.2 mg PO TID 01/23/16 09/09/16 Unknown History glipiZIDE 10 mg PO DAILY 01/23/16 09/09/16 Unknown History metFORMIN [Glucophage] 850 mg PO DAILY 01/23/16 09/09/16 Unknown History Active Meds: Active Medications Al Hydrox/Mg Hydrox/Simethicone (Alum-Mag Hydrox-Simeth [id number]/5ml) 30 ml PO Q4H PRN PRN Reason: Indigestion Bisacodyl (Dulcolax) 10 mg ID QDAY PRN PRN Reason: constipation unrelieved by MOM Clonidine HCl (Catapres) 0.2 mg PO TID [facility] Last Admin: 09/10/16 09:39 Dose: 0.2 mg Enoxaparin Sodium (Lovenox) 30 mg SUB-Q QDAY [facility] Last Admin: 09/10/16 09:40 Dose: 30 mg Hydralazine HCl (Apresoline) 10 mg IV Q4HR PRN PRN Reason: Hypertension SYS>160 Ceftriaxone Sodium (Rocephin/Ns 1 Gm/50 Ml) 1 gm in 50 mls @ 100 mls/hr IV Q24HR [facility] PRN Reason: Protocol Last Admin: 09/10/16 09:39 Dose: 100 mls/hr Dextrose/Sodium Chloride (D5/0.45ns) 1,000 mls @ 125 mls/hr IV DIRECT [facility] Last Admin: 09/10/16 05:16 Dose: 125 mls/hr Insulin Aspart (Novolog) 0 units SUB-Q ACHS [facility] PRN Reason: Protocol Labetalol HCl (Normodyne) 300 mg PO BID [facility] Last Admin: 09/10/16 09:39 Dose: 300 mg Magnesium Hydroxide (Milk Of Magnesia) 30 ml PO Q4H PRN PRN Reason: Constipation Morphine Sulfate (Morphine) 2 mg IV Q4H PRN PRN Reason: Pain, Moderate (4-6) Nifedipine (Procardia Xl) 90 mg PO QDAY [facility] Last Admin: 09/10/16 09:39 Dose: 90 mg Ondansetron HCl (Zofran) 4 mg IV Q8H PRN PRN Reason: N/V unrelieved by Reglan Review of Systems ROS unobtainable: due to mental status Exam - Vital Signs Vital signs: Vital Signs Temp Pulse Resp BP Pulse Ox 98.3 F 77 18 97/65 99 09/09/16 09:53 09/09/16 09:53 09/09/16 09:53 09/09/16 09:53 09/09/16 09:53 - General Appearance General appearance: well-developed, well-nourished, appears stated age, other ( no distress) EENT: PERRL, mucous membranes moist, hearing intact, vision intact Neck: Present: neck supple, trachea midline Respiratory: Clear to Ascultation Heart: regular, S1S2 Gastrointestinal: Present: normoactive bowel sounds. Absent: tenderness, distended Integumentary: no rash, warm and dry Neurologic: no asterixis, hemiplegic (left sided) Musculoskeletal: Present: other Psychiatric: mood/affect appropriate, cooperative Results - Lab Results 09/10/16 04:11 09/10/16 04:11 Most recent lab results Calcium 8.6 mg/dL (8.4-10.2) 09/10/16 04:11 Phosphorus 4.9 mg/dL (2.5-4.5) H 09/10/16 04:11 Magnesium 2.7 mg/dL (1.7-2.3) H 09/09/16 15:14 - Image Kidney/bladder ultrasound: report reviewed Assessment and Plan - Patient Problems (1) GERMAIN (acute kidney injury) Current Visit: Yes Status: Acute Plan to address problem: Acute kidney Injury superimposed on CKD stage 3 in the setting of DKA. Creatinine is improving. Hemodynamically stable. Continue IV fluids. (2) Hyperkalemia Current Visit: No Status: Acute Plan to address problem: Hyperkalemia secondary to GERMAIN and DKA. Potassium level is better now. (3) Hyponatremia Current Visit: Yes Status: Acute Plan to address problem: Pseudohyponatremia due to elevated blood sugar. (4) DKA (diabetic ketoacidoses) Current Visit: Yes Status: Acute Qualifiers: Diabetes mellitus type: type 1 Diabetes mellitus complication detail: D Plan to address problem: Improving. (5) Encephalopathy acute Current Visit: Yes Status: Acute Plan to address problem: Secondary to DKA. Improved. (6) Rhabdomyolysis Current Visit: Yes Status: Acute Qualifiers: Rhabdomyolysis type: R Encounter type: E Plan to address problem: Continue IV fluids. Monitor CK level.
[2016-09-10] MEDS ORDERED: D5NS 1,000 ML IV SCH (11:00)
[2016-09-10] MEDS: NOVOLOG SUB-Q SCH ×3 (12:29→21:54)
--- NOTE | 2016-09-10 18:52 | Progress Note ---
Assessment and Plan 1. Diabetic ketoacidosis: Resolving. Blood sugar now decreased from 700 to 180s. Insulin drip discontinued. On sliding scale insulin. Continue IV hydration. 2. Acute kidney injury: Secondary to dehydration from daycare. Anticipate improvement with IV hydration and. Trend BUN and creatinine. 3. Encephalopathy: Secondary to diabetic ketoacidosis. Continue IV hydration. Monitor cognitive function 4. Rhabdomyolysis: IV hydration with normal saline. Sodium bicarbonate 1 ampule. Trend total CK. 5. Hyperkalemia: Corrected with IV hydration. Trend potassium level. Check magnesium level 6. Hyponatremia: Corrected with IV hydration. Transferred to telemetry when bed available Subjective Date of service: 09/10/16 Principal diagnosis: DKA Interval history: Feeling better Objective - Constitutional Vitals: Vital Signs - 12hr 09/10/16 09/10/16 09/10/16 07:00 07:10 07:20 Temperature Pulse Rate 70 68 70 Respiratory 18 14 14 Rate Blood Pressure 112/78 112/78 112/78 O2 Sat by Pulse 97 98 98 Oximetry 09/10/16 09/10/16 09/10/16 07:30 07:40 07:50 Temperature Pulse Rate 69 70 74 Respiratory 13 14 15 Rate Blood Pressure 112/78 112/78 112/78 O2 Sat by Pulse 98 98 97 Oximetry 09/10/16 09/10/16 09/10/16 08:00 08:10 08:20 Temperature 98 F Pulse Rate 70 71 73 Respiratory 20 13 17 Rate Blood Pressure 121/77 121/77 121/77 O2 Sat by Pulse 98 98 100 Oximetry 09/10/16 09/10/16 09/10/16 08:30 08:40 08:50 Temperature Pulse Rate 70 69 72 Respiratory 15 15 12 Rate Blood Pressure 121/77 121/77 121/77 O2 Sat by Pulse 99 96 86 Oximetry 09/10/16 09/10/16 09/10/16 09:00 09:10 09:20 Temperature Pulse Rate 77 79 85 Respiratory 11 L 14 17 Rate Blood Pressure 130/87 130/87 130/87 O2 Sat by Pulse 97 98 97 Oximetry 09/10/16 09/10/16 09/10/16 09:30 09:40 09:50 Temperature Pulse Rate 76 77 76 Respiratory 15 14 18 Rate Blood Pressure 130/87 130/87 130/87 O2 Sat by Pulse 96 99 96 Oximetry 09/10/16 09/10/16 09/10/16 10:00 10:10 10:20 Temperature Pulse Rate 77 77 73 Respiratory 15 17 16 Rate Blood Pressure 122/79 122/79 122/79 O2 Sat by Pulse 98 97 97 Oximetry 09/10/16 09/10/16 09/10/16 10:30 10:40 10:50 Temperature Pulse Rate 76 75 74 Respiratory 16 15 15 Rate Blood Pressure 122/79 122/79 122/79 O2 Sat by Pulse 98 97 97 Oximetry 09/10/16 09/10/16 09/10/16 11:00 11:10 11:20 Temperature Pulse Rate 73 72 74 Respiratory 14 16 14 Rate Blood Pressure 92/53 92/53 92/53 O2 Sat by Pulse 97 98 98 Oximetry 09/10/16 09/10/16 09/10/16 11:30 11:40 11:50 Temperature Pulse Rate 73 73 77 Respiratory 15 17 18 Rate Blood Pressure 92/53 92/53 92/53 O2 Sat by Pulse 99 98 Oximetry 09/10/16 09/10/16 09/10/16 12:00 12:10 12:20 Temperature 98.4 F Pulse Rate 77 73 75 Respiratory 11 L 16 20 Rate Blood Pressure 107/70 107/70 107/70 O2 Sat by Pulse 99 98 99 Oximetry 09/10/16 09/10/16 09/10/16 12:30 12:40 12:50 Temperature Pulse Rate 73 73 74 Respiratory 16 18 14 Rate Blood Pressure 107/70 107/70 107/70 O2 Sat by Pulse 97 95 96 Oximetry 09/10/1617 09/10/16 13:00 13:10 13:20 Temperature Pulse Rate 74 75 74 Respiratory 17 13 20 Rate Blood Pressure 108/72 108/72 108/72 O2 Sat by Pulse 97 96 96 Oximetry 17 09/10/17 09/10/16 13:30 13:40 13:50 Temperature Pulse Rate 78 75 73 Respiratory 20 16 16 Rate Blood Pressure 108/72 108/72 108/72 O2 Sat by Pulse 97 96 96 Oximetry 09/10/1609/10/17 09/10/16 14:00 14:10 14:20 Temperature Pulse Rate 76 78 76 Respiratory 20 12 17 Rate Blood Pressure 112/75 112/78 112/78 O2 Sat by Pulse 95 98 98 Oximetry 09/10/16 09/10/16 09/10/16 14:30 14:40 14:50 Temperature Pulse Rate 75 79 75 Respiratory 19 15 18 Rate Blood Pressure 112/75 112/75 112/75 O2 Sat by Pulse 97 97 98 Oximetry 09/10/16 09/10/16 09/10/16 15:00 15:10 15:20 Temperature Pulse Rate 76 75 79 Respiratory 7 L 17 13 Rate Blood Pressure 107/75 107/75 107/75 O2 Sat by Pulse 98 98 97 Oximetry 09/10/16 09/10/16 09/10/16 15:30 15:40 15:50 Temperature Pulse Rate 73 74 79 Respiratory 17 16 16 Rate Blood Pressure 107/75 107/75 107/75 O2 Sat by Pulse 97 98 98 Oximetry 09/10/16 09/10/16 09/10/16 16:00 16:10 16:20 Temperature 98.2 F Pulse Rate 74 69 75 Respiratory 15 18 17 Rate Blood Pressure 104/69 104/69 104/69 O2 Sat by Pulse 100 99 100 Oximetry 09/10/16 09/10/16 09/10/16 16:30 16:40 16:50 Temperature Pulse Rate 76 76 78 Respiratory 16 16 15 Rate Blood Pressure 107/75 107/75 107/75 O2 Sat by Pulse 98 96 98 Oximetry 09/10/16 09/10/16 09/10/16 17:00 17:10 17:20 Temperature Pulse Rate 73 77 78 Respiratory 13 18 16 Rate Blood Pressure 96/70 96/70 96/70 O2 Sat by Pulse 99 96 98 Oximetry 09/10/16 09/10/16 09/10/16 17:30 17:40 17:50 Temperature Pulse Rate 85 80 79 Respiratory 12 17 15 Rate Blood Pressure 96/70 96/70 96/70 O2 Sat by Pulse 94 96 97 Oximetry General appearance: Present: no acute distress - EENT Eyes: PERRL ENT: hearing intact, clear oral mucosa - Neck Neck: supple, normal ROM - Respiratory Respiratory effort: normal Respiratory: bilateral: CTA - Cardiovascular Rhythm: regular Heart Sounds: Present: S1 & S2. Absent: gallop, rub Extremities: pulses intact, No edema, normal color, Full ROM - Gastrointestinal General gastrointestinal: Present: soft, non-tender, non-distended, normal bowel sounds - Integumentary Integumentary: clear, warm, dry - Musculoskeletal Musculoskeletal: 1, strength equal bilaterally - Neurologic Neurologic: moves all extremities - Psychiatric Psychiatric: memory intact, appropriate mood/affect, intact judgment & insight - Labs CBC & Chem 7: 09/10/16 04:11 09/10/16 04:11 Labs: Abnormal lab results 09/09/16 09/09/16 09/10/16 Range/Units 20:21 23:13 04:11 Hgb (11.8-15.2) gm/dl MCV (84-94) fl MCH (28-32) pg RDW (13.2-15.2) % Plt Count (140-440) K/mm3 [place] % (Auto) (0.0-7.3) % Sodium 131 L 129 L 132 L (137-145) mmol/L Chloride 92.8 L 92.0 L 96.4 L (98-107) mmol/L Carbon Dioxide 15 L 18 L 18 L (22-30) mmol/L BUN 77 H 77 H 77 H (9-20) mg/dL Creatinine 4.8 H 4.5 H 4.0 H (0.8-1.5) mg/dL Glucose 120 H 174 H 167 H (75-100) mg/dL Phosphorus (2.5-4.5) mg/dL 09/10/16 09/10/16 Range/Units 04:11 04:11 Hgb 11.6 L (11.8-15.2) gm/dl MCV 81 L (84-94) fl MCH 26 L (28-32) pg RDW 18.8 H (13.2-15.2) % Plt Count 121 L (140-440) K/mm3 [place] % (Auto) 8.0 H (0.0-7.3) % Sodium (137-145) mmol/L Chloride (98-107) mmol/L Carbon Dioxide (22-30) mmol/L BUN (9-20) mg/dL Creatinine (0.8-1.5) mg/dL Glucose (75-100) mg/dL Phosphorus 4.9 H (2.5-4.5) mg/dL
[2016-09-11 05:38] LABS: Albumin 3.5 g/dL (3.9-5); Albumin/Globulin Ratio 0.9 %; BUN/Creatinine Ratio 24.81; Bilirubin,Total 0.3 mg/dL (0.1-1.2); Calcium 8.8 mg/dL (8.4-10.2); Chloride 99.6 mmol/L (98-107); Magnesium 2.4 mg/dL (1.7-2.3); Potassium 4.2 mmol/L (3.6-5.0); Total Protein 7.2 g/dL (6.3-8.2)
[2016-09-11] MEDS: NOVOLOG SUB-Q SCH ×4 (08:01→22:30)
[2016-09-11] MEDS: CATAPRES PO SCH ×2 (08:02→14:00)
--- NOTE | 2016-09-11 08:12 | Progress Note ---
Assessment and Plan - Patient Problems (1) GERMAIN (acute kidney injury) Current Visit: Yes Status: Acute Plan to address problem: Acute kidney Injury superimposed on CKD stage 3 in the setting of DKA. Creatinine continues to improve. Hemodynamically stable. Continue IV fluids. (2) Hyperkalemia Current Visit: No Status: Acute Plan to address problem: Hyperkalemia secondary to GERMAIN and DKA. Improved now. (3) Hyponatremia Current Visit: Yes Status: Acute Plan to address problem: Pseudohyponatremia due to elevated blood sugar. (4) DKA (diabetic ketoacidoses) Current Visit: Yes Status: Acute Qualifiers: Diabetes mellitus type: type 1 Diabetes mellitus complication detail: D Plan to address problem: Improving. (5) Encephalopathy acute Current Visit: Yes Status: Acute Plan to address problem: Secondary to DKA. Improved. (6) Rhabdomyolysis Current Visit: Yes Status: Acute Qualifiers: Rhabdomyolysis type: R Encounter type: E Plan to address problem: Continue IV fluids. CK level is much better. Subjective Date of service: 09/11/16 Principal diagnosis: DKA Interval history: Patient is feeling better. Objective - Vital Signs Vital signs: Vital Signs - 12hr 09/10/16 09/10/16 09/10/16 21:47 23:10 23:20 Temperature Pulse Rate 77 75 75 Respiratory 14 15 Rate Blood Pressure 118/84 105/71 105/71 O2 Sat by Pulse 96 97 Oximetry 09/10/16 09/10/16 09/10/16 23:30 23:40 23:50 Temperature Pulse Rate 76 80 75 Respiratory 16 13 15 Rate Blood Pressure 105/71 105/71 105/71 O2 Sat by Pulse 97 87 98 Oximetry 09/11/16 09/11/16 09/11/16 00:00 00:10 00:20 Temperature 99.1 F Pulse Rate 74 74 73 Respiratory 13 15 15 Rate Blood Pressure 96/61 96/61 96/61 O2 Sat by Pulse 97 97 97 Oximetry 09/11/16 09/11/16 09/11/16 00:30 00:40 00:50 Temperature Pulse Rate 72 71 72 Respiratory 15 15 14 Rate Blood Pressure 96/61 96/61 96/61 O2 Sat by Pulse 97 96 97 Oximetry 09/11/16 09/11/16 09/11/16 01:00 01:10 01:20 Temperature Pulse Rate 70 70 75 Respiratory 15 17 15 Rate Blood Pressure 87/55 87/55 87/55 O2 Sat by Pulse 98 98 71 L Oximetry 09/11/16 09/11/16 09/11/16 01:30 01:40 01:50 Temperature Pulse Rate 70 70 71 Respiratory 15 12 19 Rate Blood Pressure 87/55 87/55 87/55 O2 Sat by Pulse 97 98 97 Oximetry 09/11/16 09/11/16 09/11/16 02:00 02:10 02:20 Temperature Pulse Rate 69 68 73 Respiratory 17 14 18 Rate Blood Pressure 102/70 102/70 102/70 O2 Sat by Pulse 95 95 96 Oximetry 09/11/16 09/11/16 09/11/16 02:30 02:40 02:50 Temperature Pulse Rate 69 68 69 Respiratory 13 13 12 Rate Blood Pressure 102/70 102/70 102/70 O2 Sat by Pulse 97 97 96 Oximetry 09/11/16 09/11/16 09/11/16 03:00 03:10 03:20 Temperature 98.3 F Pulse Rate 69 68 68 Respiratory 13 12 15 Rate Blood Pressure 93/63 93/63 93/63 O2 Sat by Pulse 97 97 97 Oximetry 09/11/16 09/11/16 09/11/16 03:30 03:40 03:50 Temperature Pulse Rate 70 68 70 Respiratory 14 13 22 Rate Blood Pressure 93/63 93/63 93/63 O2 Sat by Pulse 97 97 97 Oximetry 09/11/16 09/11/16 09/11/16 04:00 04:10 04:20 Temperature Pulse Rate 69 69 68 Respiratory 13 15 12 Rate Blood Pressure 98/69 98/69 98/69 O2 Sat by Pulse 98 98 97 Oximetry 09/11/16 09/11/16 09/11/16 04:30 04:40 04:50 Temperature Pulse Rate 69 76 74 Respiratory 15 12 13 Rate Blood Pressure 98/69 98/69 98/69 O2 Sat by Pulse 94 99 95 Oximetry 09/11/16 09/11/16 09/11/16 05:00 05:10 05:20 Temperature Pulse Rate 70 70 69 Respiratory 14 20 21 Rate Blood Pressure 108/67 108/67 108/67 O2 Sat by Pulse 97 95 92 Oximetry 09/11/16 09/11/16 09/11/16 05:30 05:40 05:50 Temperature Pulse Rate 71 71 71 Respiratory 12 14 14 Rate Blood Pressure 108/67 108/67 108/67 O2 Sat by Pulse 97 97 99 Oximetry 09/11/16 09/11/16 09/11/16 06:00 06:10 06:20 Temperature Pulse Rate 70 76 71 Respiratory 15 12 14 Rate Blood Pressure 112/68 112/68 112/68 O2 Sat by Pulse 98 97 96 Oximetry 09/11/16 09/11/16 09/11/16 06:30 06:40 06:50 Temperature Pulse Rate 71 72 72 Respiratory 10 L 15 13 Rate Blood Pressure 112/68 112/68 112/68 O2 Sat by Pulse 93 94 95 Oximetry 09/11/16 09/11/16 09/11/16 07:00 07:10 07:20 Temperature Pulse Rate 72 72 73 Respiratory 14 15 14 Rate Blood Pressure 109/68 109/68 109/68 O2 Sat by Pulse 97 94 97 Oximetry 09/11/16 08:02 Temperature Pulse Rate 73 Respiratory Rate Blood Pressure 121/73 O2 Sat by Pulse Oximetry - General Appearance General appearance: well-developed, well-nourished, appears stated age, other ( no distress) EENT: PERRL, mucous membranes moist Neck: supple Respiratory: Present: Clear to Ascultation Cardiology: regular, S1S2 Gastrointestinal: normoactive bowel sounds, no tenderness, no distended Integumentary: no rash, warm and dry Neurologic: no asterixis, alert and oriented x3, CN 3-12 intact, hemiplegic ( left side) Musculoskeletal: other (no edema) Psychiatric: mood/affect appropriate, cooperative - Lab 09/10/16 04:11 09/11/16 03:52 Most recent lab results Calcium 8.8 mg/dL (8.4-10.2) 09/11/16 03:52 Phosphorus 5.0 mg/dL (2.5-4.5) H 09/11/16 03:52 Magnesium 2.4 mg/dL (1.7-2.3) H 09/11/16 03:52
[2016-09-11] MEDS: NORMODYNE PO SCH (10:00)
[2016-09-11] MEDS: ROCEPHIN/NS 1 GM/50 ML 1 GM/50 ML BAG IV SCH (10:36)
[2016-09-11] MEDS: LOVENOX SUB-Q SCH (10:36)
[2016-09-11] MEDS: PROCARDIA XL PO SCH (10:37)
--- NOTE | 2016-09-11 11:01 | Progress Note ---
Assessment and Plan 1. Diabetic ketoacidosis: Resolving. Blood sugar now decreased from 700 to 170s. Insulin drip discontinued. On sliding scale insulin. Continue IV hydration. 2. Acute on CKD stage 3: Secondary to dehydration from DKA. Anticipate improvement with IV hydration and. Trend BUN and creatinine. 3. Encephalopathy: Secondary to diabetic ketoacidosis. Resolved. 4. Rhabdomyolysis: IV hydration with normal saline. Sodium bicarbonate 1 ampule. Trend total CK. 5. Hyperkalemia: Corrected with IV hydration. Trend potassium level. Magnesium level, high 6. Hyponatremia: improving with hydration . Transferred to telemetry when bed available Subjective Date of service: 09/11/16 Principal diagnosis: DKA, Acute on CKD Interval history: Feeling better Objective - Constitutional Vitals: Vital Signs - 12hr 09/10/16 09/10/16 09/10/16 23:10 23:20 23:30 Temperature Pulse Rate 75 75 76 Pulse Rate [ From Monitor] Respiratory 14 15 16 Rate Blood Pressure 105/71 105/71 105/71 O2 Sat by Pulse 96 97 97 Oximetry 09/10/16 09/10/16 09/11/16 23:40 23:50 00:00 Temperature 99.1 F Pulse Rate 80 75 74 Pulse Rate [ From Monitor] Respiratory 13 15 13 Rate Blood Pressure 105/71 105/71 96/61 O2 Sat by Pulse 87 98 97 Oximetry 09/11/16 09/11/16 09/11/16 00:10 00:20 00:30 Temperature Pulse Rate 74 73 72 Pulse Rate [ From Monitor] Respiratory 15 15 15 Rate Blood Pressure 96/61 96/61 96/61 O2 Sat by Pulse 97 97 97 Oximetry 09/11/16 09/11/16 09/11/16 00:40 00:50 01:00 Temperature Pulse Rate 71 72 70 Pulse Rate [ From Monitor] Respiratory 15 14 15 Rate Blood Pressure 96/61 96/61 87/55 O2 Sat by Pulse 96 97 98 Oximetry 09/11/16 09/11/16 09/11/16 01:10 01:20 01:30 Temperature Pulse Rate 70 75 70 Pulse Rate [ From Monitor] Respiratory 17 15 15 Rate Blood Pressure 87/55 87/55 87/55 O2 Sat by Pulse 98 71 L 97 Oximetry 09/11/16 09/11/16 09/11/16 01:40 01:50 02:00 Temperature Pulse Rate 70 71 69 Pulse Rate [ From Monitor] Respiratory 12 19 17 Rate Blood Pressure 87/55 87/55 102/70 O2 Sat by Pulse 98 97 95 Oximetry 09/11/16 09/11/16 09/11/16 02:10 02:20 02:30 Temperature Pulse Rate 68 73 69 Pulse Rate [ From Monitor] Respiratory 14 18 13 Rate Blood Pressure 102/70 102/70 102/70 O2 Sat by Pulse 95 96 97 Oximetry 09/11/16 09/11/16 09/11/16 02:40 02:50 03:00 Temperature 98.3 F Pulse Rate 68 69 69 Pulse Rate [ From Monitor] Respiratory 13 12 13 Rate Blood Pressure 102/70 102/70 93/63 O2 Sat by Pulse 97 96 97 Oximetry 09/11/16 09/11/16 09/11/16 03:10 03:20 03:30 Temperature Pulse Rate 68 68 70 Pulse Rate [ From Monitor] Respiratory 12 15 14 Rate Blood Pressure 93/63 93/63 93/63 O2 Sat by Pulse 97 97 97 Oximetry 09/11/16 09/11/16 09/11/16 03:40 03:50 04:00 Temperature Pulse Rate 68 70 69 Pulse Rate [ From Monitor] Respiratory 13 22 13 Rate Blood Pressure 93/63 93/63 98/69 O2 Sat by Pulse 97 97 98 Oximetry 09/11/16 09/11/16 09/11/16 04:10 04:20 04:30 Temperature Pulse Rate 69 68 69 Pulse Rate [ From Monitor] Respiratory 15 12 15 Rate Blood Pressure 98/69 98/69 98/69 O2 Sat by Pulse 98 97 94 Oximetry 09/11/16 09/11/16 09/11/16 04:40 04:50 05:00 Temperature Pulse Rate 76 74 70 Pulse Rate [ From Monitor] Respiratory 12 13 14 Rate Blood Pressure 98/69 98/69 108/67 O2 Sat by Pulse 99 95 97 Oximetry 09/11/16 09/11/16 09/11/16 05:10 05:20 05:30 Temperature Pulse Rate 70 69 71 Pulse Rate [ From Monitor] Respiratory 20 21 12 Rate Blood Pressure 108/67 108/67 108/67 O2 Sat by Pulse 95 92 97 Oximetry 09/11/16 09/11/16 09/11/16 05:40 05:50 06:00 Temperature Pulse Rate 71 71 70 Pulse Rate [ From Monitor] Respiratory 14 14 15 Rate Blood Pressure 108/67 108/67 112/68 O2 Sat by Pulse 97 99 98 Oximetry 09/11/16 09/11/16 09/11/16 06:10 06:20 06:30 Temperature Pulse Rate 76 71 71 Pulse Rate [ From Monitor] Respiratory 12 14 10 L Rate Blood Pressure 112/68 112/68 112/68 O2 Sat by Pulse 97 96 93 Oximetry 09/11/16 09/11/16 09/11/16 06:40 06:50 07:00 Temperature Pulse Rate 72 72 72 Pulse Rate [ From Monitor] Respiratory 15 13 14 Rate Blood Pressure 112/68 112/68 109/68 O2 Sat by Pulse 94 95 97 Oximetry 09/11/16 09/11/16 09/11/16 07:10 07:20 07:30 Temperature Pulse Rate 72 73 74 Pulse Rate [ From Monitor] Respiratory 15 14 14 Rate Blood Pressure 109/68 109/68 109/68 O2 Sat by Pulse 94 97 98 Oximetry 09/11/16 09/11/16 09/11/16 07:40 07:45 07:50 Temperature Pulse Rate 73 69 Pulse Rate [ 74 From Monitor] Respiratory 18 18 12 Rate Blood Pressure 109/68 109/68 O2 Sat by Pulse 97 96 97 Oximetry 09/11/16 09/11/16 09/11/16 08:00 08:02 08:10 Temperature 97.4 F L Pulse Rate 74 73 81 Pulse Rate [ From Monitor] Respiratory 14 14 Rate Blood Pressure 121/73 121/73 121/73 O2 Sat by Pulse 96 98 Oximetry General appearance: Present: no acute distress - EENT Eyes: PERRL ENT: hearing intact, clear oral mucosa - Neck Neck: supple, normal ROM - Respiratory Respiratory effort: normal Respiratory: bilateral: CTA, diminished - Cardiovascular Rhythm: regular Heart Sounds: Present: S1 & S2. Absent: gallop, rub Extremities: pulses intact, No edema, normal color, Full ROM - Gastrointestinal General gastrointestinal: Present: soft, non-tender, non-distended, normal bowel sounds - Integumentary Integumentary: clear, warm, dry - Musculoskeletal Musculoskeletal: 1, strength equal bilaterally - Neurologic Neurologic: moves all extremities - Psychiatric Psychiatric: memory intact, appropriate mood/affect, intact judgment & insight - Labs CBC & Chem 7: 09/10/16 04:11 09/11/16 03:52 Labs: Abnormal lab results 09/11/16 Range/Units 03:52 Sodium 134 L (137-145) mmol/L Carbon Dioxide 18 L (22-30) mmol/L BUN 67 H (9-20) mg/dL Creatinine 2.7 H (0.8-1.5) mg/dL Glucose 279 H (75-100) mg/dL Phosphorus 5.0 H (2.5-4.5) mg/dL Magnesium 2.4 H (1.7-2.3) mg/dL AST 48 H (5-40) units/L Total Creatine Kinase 847 H (55-170) units/L Albumin 3.5 L (3.9-5) g/dL
--- NOTE | 2016-09-11 13:37 | Progress Note ---
Assessment and Plan Stable for transfer out of ICU Will sign off. Subjective Date of service: 09/11/16 Principal diagnosis: DKA, Acute on CKD Interval history: Patient received bed this am. Transferring out. Stable, no acute events Objective - Constitutional Vitals: Vital Signs - 12hr 09/11/16 09/11/16 09/11/16 01:40 01:50 02:00 Temperature Pulse Rate 70 71 69 Pulse Rate [ From Monitor] Respiratory 12 19 17 Rate Blood Pressure 87/55 87/55 102/70 O2 Sat by Pulse 98 97 95 Oximetry 09/11/16 09/11/16 09/11/16 02:10 02:20 02:30 Temperature Pulse Rate 68 73 69 Pulse Rate [ From Monitor] Respiratory 14 18 13 Rate Blood Pressure 102/70 102/70 102/70 O2 Sat by Pulse 95 96 97 Oximetry 09/11/16 09/11/16 09/11/16 02:40 02:50 03:00 Temperature 98.3 F Pulse Rate 68 69 69 Pulse Rate [ From Monitor] Respiratory 13 12 13 Rate Blood Pressure 102/70 102/70 93/63 O2 Sat by Pulse 97 96 97 Oximetry 09/11/16 09/11/16 09/11/16 03:10 03:20 03:30 Temperature Pulse Rate 68 68 70 Pulse Rate [ From Monitor] Respiratory 12 15 14 Rate Blood Pressure 93/63 93/63 93/63 O2 Sat by Pulse 97 97 97 Oximetry 09/11/16 09/11/16 09/11/16 03:40 03:50 04:00 Temperature Pulse Rate 68 70 69 Pulse Rate [ From Monitor] Respiratory 13 22 13 Rate Blood Pressure 93/63 93/63 98/69 O2 Sat by Pulse 97 97 98 Oximetry 09/11/16 09/11/16 09/11/16 04:10 04:20 04:30 Temperature Pulse Rate 69 68 69 Pulse Rate [ From Monitor] Respiratory 15 12 15 Rate Blood Pressure 98/69 98/69 98/69 O2 Sat by Pulse 98 97 94 Oximetry 09/11/16 09/11/16 09/11/16 04:40 04:50 05:00 Temperature Pulse Rate 76 74 70 Pulse Rate [ From Monitor] Respiratory 12 13 14 Rate Blood Pressure 98/69 98/69 108/67 O2 Sat by Pulse 99 95 97 Oximetry 09/11/16 09/11/16 09/11/16 05:10 05:20 05:30 Temperature Pulse Rate 70 69 71 Pulse Rate [ From Monitor] Respiratory 20 21 12 Rate Blood Pressure 108/67 108/67 108/67 O2 Sat by Pulse 95 92 97 Oximetry 09/11/16 09/11/16 09/11/16 05:40 05:50 06:00 Temperature Pulse Rate 71 71 70 Pulse Rate [ From Monitor] Respiratory 14 14 15 Rate Blood Pressure 108/67 108/67 112/68 O2 Sat by Pulse 97 99 98 Oximetry 09/11/16 09/11/16 09/11/16 06:10 06:20 06:30 Temperature Pulse Rate 76 71 71 Pulse Rate [ From Monitor] Respiratory 12 14 10 L Rate Blood Pressure 112/68 112/68 112/68 O2 Sat by Pulse 97 96 93 Oximetry 09/11/16 09/11/16 09/11/16 06:40 06:50 07:00 Temperature Pulse Rate 72 72 72 Pulse Rate [ From Monitor] Respiratory 15 13 14 Rate Blood Pressure 112/68 112/68 109/68 O2 Sat by Pulse 94 95 97 Oximetry 09/11/16 09/11/16 09/11/16 07:10 07:20 07:30 Temperature Pulse Rate 72 73 74 Pulse Rate [ From Monitor] Respiratory 15 14 14 Rate Blood Pressure 109/68 109/68 109/68 O2 Sat by Pulse 94 97 98 Oximetry 09/11/16 09/11/16 09/11/16 07:40 07:45 07:50 Temperature Pulse Rate 73 69 Pulse Rate [ 74 From Monitor] Respiratory 18 18 12 Rate Blood Pressure 109/68 109/68 O2 Sat by Pulse 97 96 97 Oximetry 09/11/16 09/11/16 09/11/16 08:00 08:02 08:10 Temperature 97.4 F L Pulse Rate 74 73 81 Pulse Rate [ From Monitor] Respiratory 14 14 Rate Blood Pressure 121/73 121/73 121/73 O2 Sat by Pulse 96 98 Oximetry 09/11/16 09/11/16 09/11/16 08:20 08:30 08:40 Temperature Pulse Rate 85 79 81 Pulse Rate [ From Monitor] Respiratory 19 13 15 Rate Blood Pressure 121/73 121/73 121/73 O2 Sat by Pulse 100 99 97 Oximetry 09/11/16 09/11/16 09/11/16 08:50 09:00 09:10 Temperature Pulse Rate 80 80 80 Pulse Rate [ From Monitor] Respiratory 15 15 15 Rate Blood Pressure 121/73 105/64 105/64 O2 Sat by Pulse 96 96 97 Oximetry 09/11/16 09/11/16 09/11/16 09:20 09:30 09:40 Temperature Pulse Rate 91 H 93 H 86 Pulse Rate [ From Monitor] Respiratory 16 17 15 Rate Blood Pressure 105/64 105/64 105/64 O2 Sat by Pulse 98 97 97 Oximetry 09/11/16 09/11/16 09/11/16 09:50 10:00 10:10 Temperature Pulse Rate 89 81 79 Pulse Rate [ From Monitor] Respiratory 18 15 15 Rate Blood Pressure 105/64 103/63 103/63 O2 Sat by Pulse 97 96 96 Oximetry 09/11/16 09/11/16 09/11/16 10:20 10:30 10:40 Temperature Pulse Rate 77 87 77 Pulse Rate [ From Monitor] Respiratory 15 15 15 Rate Blood Pressure 103/63 103/63 103/63 O2 Sat by Pulse 97 98 97 Oximetry 09/11/16 09/11/16 09/11/16 10:50 11:00 11:10 Temperature Pulse Rate 82 Pulse Rate [ From Monitor] Respiratory 15 25 H Rate Blood Pressure 103/63 121/90 121/90 O2 Sat by Pulse 98 95 98 Oximetry 09/11/16 09/11/16 09/11/16 11:20 11:30 11:40 Temperature Pulse Rate Pulse Rate [ From Monitor] Respiratory Rate Blood Pressure 121/90 121/90 121/90 O2 Sat by Pulse 95 95 93 Oximetry 09/11/16 09/11/16 09/11/16 11:50 12:00 12:10 Temperature 98.6 F Pulse Rate Pulse Rate [ From Monitor] Respiratory Rate Blood Pressure 121/90 121/90 121/90 O2 Sat by Pulse 97 94 96 Oximetry 09/11/16 09/11/16 09/11/16 12:20 12:30 12:40 Temperature Pulse Rate Pulse Rate [ From Monitor] Respiratory Rate Blood Pressure 121/90 121/90 121/90 O2 Sat by Pulse 96 97 97 Oximetry 09/11/16 09/11/16 09/11/16 12:50 13:00 13:10 Temperature Pulse Rate 71 74 73 Pulse Rate [ From Monitor] Respiratory 13 15 15 Rate Blood Pressure 122/86 112/79 112/79 O2 Sat by Pulse 98 99 98 Oximetry - Labs CBC & Chem 7: 09/10/16 04:11 09/11/16 03:52 Labs: Abnormal lab results 09/11/16 Range/Units 03:52 Sodium 134 L (137-145) mmol/L Carbon Dioxide 18 L (22-30) mmol/L BUN 67 H (9-20) mg/dL Creatinine 2.7 H (0.8-1.5) mg/dL Glucose 279 H (75-100) mg/dL Phosphorus 5.0 H (2.5-4.5) mg/dL Magnesium 2.4 H (1.7-2.3) mg/dL AST 48 H (5-40) units/L Total Creatine Kinase 847 H (55-170) units/L Albumin 3.5 L (3.9-5) g/dL
[2016-09-11] MEDS ORDERED: ZOCOR PO SCH (22:00)
[2016-09-11] MEDS: LEVEMIR SUB-Q SCH (22:59)
--- NOTE | 2016-09-12 06:34 | Progress Note ---
Assessment and Plan - Patient Problems (1) GERMAIN (acute kidney injury) Current Visit: Yes Status: Acute Plan to address problem: Acute kidney Injury superimposed on CKD stage 3 in the setting of DKA. Creatinine continues to improve. Hemodynamically stable. Monitor renal function. (2) Hyperkalemia Current Visit: No Status: Acute Plan to address problem: Hyperkalemia secondary to GERMAIN and DKA. Improved now. (3) Hyponatremia Current Visit: Yes Status: Acute Plan to address problem: Pseudohyponatremia due to elevated blood sugar. (4) DKA (diabetic ketoacidoses) Current Visit: Yes Status: Acute Qualifiers: Diabetes mellitus type: type 1 Diabetes mellitus complication detail: D Plan to address problem: Improving. (5) Encephalopathy acute Current Visit: Yes Status: Acute Plan to address problem: Secondary to DKA. Improved. (6) Rhabdomyolysis Current Visit: Yes Status: Acute Qualifiers: Rhabdomyolysis type: R Encounter type: E Plan to address problem: CK level is much better. Subjective Date of service: 09/12/16 Principal diagnosis: DKA, Acute on CKD Interval history: No new complaint. Objective - Vital Signs Vital signs: Vital Signs - 12hr 09/12/16 00:35 Temperature 100.6 F H Pulse Rate [ 98 H Right Dorsalis Pedis] Respiratory 20 Rate Blood Pressure 117/76 [Left Arm] O2 Sat by Pulse 96 Oximetry - General Appearance General appearance: well-developed, well-nourished, appears stated age, other ( no distress) EENT: PERRL, mucous membranes moist Neck: supple Respiratory: Present: Clear to Ascultation Cardiology: regular, S1S2, no murmurs Gastrointestinal: normoactive bowel sounds, no tenderness, no distended Integumentary: no rash, warm and dry Neurologic: no asterixis, hemiplegic (left sided) Musculoskeletal: other (no edema) - Lab 09/10/16 04:11 09/12/16 06:16 Most recent lab results Calcium 8.8 mg/dL (8.4-10.2) 09/11/16 03:52 Phosphorus 5.0 mg/dL (2.5-4.5) H 09/11/16 03:52 Magnesium 2.4 mg/dL (1.7-2.3) H 09/11/16 03:52
[2016-09-12 07:21] LABS: BUN/Creatinine Ratio 21.92; Calcium 8.9 mg/dL (8.4-10.2); Chloride 98.4 mmol/L (98-107)
[2016-09-12] MEDS ORDERED: APRESOLINE IV PRN (07:35)
[2016-09-12] MEDS: NOVOLOG SUB-Q SCH ×4 (08:28→23:21)
[2016-09-12] MEDS ORDERED: NON-FORMULARY (Pravastatin 20 MG) PO SCH (10:00)
--- NOTE | 2016-09-12 10:08 | Progress Note ---
Assessment and Plan Assessment and plan: 1. Diabetic ketoacidosis: Resolved. Insulin drip discontinued. Cont. sliding scale insulin. Continue IV hydration. 2. Acute on CKD stage 3: Secondary to dehydration from DKA. Anticipate improvement with IV hydration and. Trend BUN and creatinine. Baseline creatinine appears to be approximately 1.7-2.0. Creatinine today is 2.6. Continue IV fluid hydration. Anticipate discharge in a.m. 3. Encephalopathy: Secondary to diabetic ketoacidosis. Resolved. 4. Rhabdomyolysis: IV hydration with normal saline. Sodium bicarbonate 1 ampule. Trend total CK. Hold statin. 5. Hyperkalemia: Corrected with IV hydration. Trend potassium level. Magnesium level, high 6. Hyponatremia: improving with hydration. 7. Deconditioning. PT evaluation for ambulation. History Interval history: No new issues overnight. Hospitalist Physical - Constitutional Vitals: Temp Pulse Resp BP Pulse Ox 99.9 F H 103 H 20 115/82 98 09/12/16 07:58 09/12/16 07:58 09/12/16 07:58 09/12/16 07:58 09/12/16 07:58 General appearance: Present: no acute distress - EENT Eyes: Present: PERRL, EOM intact ENT: hearing intact, clear oral mucosa, dentition normal - Neck Neck: Present: supple, normal ROM - Respiratory Respiratory effort: normal Respiratory: bilateral: CTA - Cardiovascular Rhythm: regular Heart Sounds: Present: S1 & S2. Absent: gallop, rub - Extremities Extremities: no ischemia, No edema, Full ROM - Abdominal General gastrointestinal: soft, non-tender, non-distended, normal bowel sounds - Integumentary Integumentary: Present: clear, warm, dry - Neurologic Neurologic: CNII-XII intact, moves all extremities Results - Labs CBC & Chem 7: 09/10/16 04:11 09/12/16 06:16 Labs: Laboratory Last Values WBC 7.9 K/mm3 (4.5-11.0) 09/10/16 04:11 RBC 4.40 M/mm3 (3.65-5.03) 09/10/16 04:11 Hgb 11.6 gm/dl (11.8-15.2) L 09/10/16 04:11 Hct 35.7 % (35.5-45.6) 09/10/16 04:11 MCV 81 fl (84-94) L 09/10/16 04:11 MCH 26 pg (28-32) L 09/10/16 04:11 MCHC 32 % (32-34) 09/10/16 04:11 RDW 18.8 % (13.2-15.2) H 09/10/16 04:11 Plt Count 121 K/mm3 (140-440) L 09/10/16 04:11 Lymph % (Auto) 24.6 % (13.4-35.0) 09/10/16 04:11 Crockett % (Auto) 8.0 % (0.0-7.3) H 09/10/16 04:11 Eos % (Auto) 3.5 % (0.0-4.3) 09/10/16 04:11 Baso % (Auto) 0.7 % (0.0-1.8) 09/10/16 04:11 Lymph # 1.9 K/mm3 (1.2-5.4) 09/10/16 04:11 Crockett # 0.6 K/mm3 (0.0-0.8) 09/10/16 04:11 Eos # 0.3 K/mm3 (0.0-0.4) 09/10/16 04:11 Baso # 0.1 K/mm3 (0.0-0.1) 09/10/16 04:11 Seg Neutrophils % 63.2 % (40.0-70.0) 09/10/16 04:11 Seg Neutrophils # 5.0 K/mm3 (1.8-7.7) 09/10/16 04:11 VBG pH 7.280 (7.320-7.420) L 09/09/16 11:04 Sodium 136 mmol/L (137-145) L 09/12/16 06:16 Potassium 4.0 mmol/L (3.6-5.0) 09/12/16 06:16 Chloride 98.4 mmol/L (98-107) 09/12/16 06:16 Carbon Dioxide 18 mmol/L (22-30) L 09/12/16 06:16 Anion Gap 24 mmol/L 09/12/16 06:16 BUN 57 mg/dL (9-20) H 09/12/16 06:16 Creatinine 2.6 mg/dL (0.8-1.5) H 09/12/16 06:16 Estimated GFR 31 ml/min 09/12/16 06:16 BUN/Creatinine Ratio 21.92 % 09/12/16 06:16 Glucose 331 mg/dL (75-100) H 09/12/16 06:16 Calcium 8.9 mg/dL (8.4-10.2) 09/12/16 06:16 Phosphorus 5.0 mg/dL (2.5-4.5) H 09/11/16 03:52 Magnesium 2.4 mg/dL (1.7-2.3) H 09/11/16 03:52 Total Bilirubin 0.3 mg/dL (0.1-1.2) 09/11/16 03:52 AST 48 units/L (5-40) H 09/11/16 03:52 ALT 26 units/L (7-56) 09/11/16 03:52 Alkaline Phosphatase 113 units/L (35-129) 09/11/16 03:52 Total Creatine Kinase 261 units/L (55-170) H 09/12/16 06:16 CK-MB (CK-2) 89.1 ng/mL (0.0-4.0) H 09/09/16 10:36 CK-MB (CK-2) Rel Index 1.7 (0-4) 09/09/16 10:36 Troponin T 0.102 ng/mL (0.00-0.029) H* 09/09/16 10:36 Total Protein 7.2 g/dL (6.3-8.2) 09/11/16 03:52 Albumin 3.5 g/dL (3.9-5) L 09/11/16 03:52 Albumin/Globulin Ratio 0.9 % 09/11/16 03:52 Triglycerides 491 mg/dL (2-149) H 09/09/16 10:36 Cholesterol 132 mg/dL (50-199) 09/09/16 10:36 LDL Cholesterol Direct TNR 09/09/16 10:36 HDL Cholesterol 22 mg/dL (40-59) L 09/09/16 10:36 Cholesterol/HDL Ratio 6.00 % 09/09/16 10:36 TSH 0.840 mlU/mL (0.270-4.200) 09/09/16 10:36 Free T4 1.37 ng/dL (0.76-1.46) 09/09/16 10:36 Urine Color Yellow (Yellow) 09/09/16 16:32 Urine Turbidity Clear (Clear) 09/09/16 16:32 Urine pH 5.0 (5.0-7.0) 09/09/16 16:32 Ur Specific Center 1.010 (1.003-1.030) 09/09/16 16:32 Urine Protein <15 mg/dl mg/dL (Negative) 09/09/16 16:32 Urine Glucose (UA) >=500 mg/dL (Negative) 09/09/16 16:32 Urine Ketones Neg mg/dL (Negative) 09/09/16 16:32 Urine Blood Mod (Negative) 09/09/16 16:32 Urine Nitrite Neg (Negative) 09/09/16 16:32 Urine Bilirubin Neg (Negative) 09/09/16 16:32 Urine Urobilinogen < 2.0 mg/dL (<2.0) 09/09/16 16:32 Ur Leukocyte Esterase Neg (Negative) 09/09/16 16:32 Urine WBC (Auto) 1.0 /HPF (0.0-6.0) 09/09/16 16:32 Urine RBC (Auto) 2.0 /HPF (0.0-6.0) 09/09/16 16:32 Urine Bacteria (Auto) 1+ /HPF (Negative) 09/09/16 16:32 Urine Mucus Few /HPF 09/09/16 16:32 Urine Opiates Screen Presumptive negative 09/09/16 16:32 Urine Methadone Screen Presumptive negative 09/09/16 16:32 Ur Barbiturates Screen Presumptive negative 09/09/16 16:32 Ur Phencyclidine Scrn Presumptive negative 09/09/16 16:32 Ur Amphetamines Screen Presumptive negative 09/09/16 16:32 U Benzodiazepines Scrn Presumptive negative 09/09/16 16:32 Urine Cocaine Screen Presumptive negative 09/09/16 16:32 U Marijuana (THC) Screen Presumptive negative 09/09/16 16:32 Drugs of Abuse Note Disclamer 09/09/16 16:32 Plasma/Serum Alcohol < 0.01 gm% (0-0.07) 09/09/16 10:37 Ketones mmol/L (-0.28) 09/09/16 09:57
[2016-09-12] MEDS: LOVENOX SUB-Q SCH (11:01)
[2016-09-12] MEDS: ROCEPHIN/NS 1 GM/50 ML 1 GM/50 ML BAG IV SCH (11:01)
[2016-09-12] MEDS: PROCARDIA XL PO SCH (11:01)
[2016-09-12] MEDS: LEVEMIR SUB-Q SCH (23:23)
[2016-09-13 05:54] LABS: Calcium 8.9 mg/dL (8.4-10.2); Chloride 99.3 mmol/L (98-107); Potassium 4.4 mmol/L (3.6-5.0)
--- NOTE | 2016-09-13 07:01 | Progress Note ---
Assessment and Plan - Patient Problems (1) GERMAIN (acute kidney injury) Current Visit: Yes Status: Resolved Plan to address problem: Acute kidney Injury superimposed on CKD stage 3 in the setting of DKA. Creatinine continues to improve. Hemodynamically stable. Monitor renal function. (2) Hyperkalemia Current Visit: No Status: Resolved Plan to address problem: Hyperkalemia secondary to GERMAIN and DKA. Improved now. (3) Hyponatremia Current Visit: Yes Status: Resolved Plan to address problem: Sodium level is better. (4) DKA (diabetic ketoacidoses) Current Visit: Yes Status: Resolved Qualifiers: Diabetes mellitus type: type 1 Diabetes mellitus complication detail: D Plan to address problem: Improving. (5) Encephalopathy acute Current Visit: Yes Status: Resolved Plan to address problem: Secondary to DKA. Improved. (6) Rhabdomyolysis Current Visit: Yes Status: Resolved Qualifiers: Rhabdomyolysis type: R Encounter type: E Plan to address problem: Improved. Subjective Date of service: 09/13/16 Principal diagnosis: DKA, Acute on CKD Interval history: No new complaint. Objective - Vital Signs Vital signs: Vital Signs - 12hr 09/12/16 09/13/16 23:00 03:00 Temperature 99.8 F H Pulse Rate [ 115 H 101 H Left] Respiratory 20 Rate Blood Pressure 178/118 [Left Arm] Blood Pressure 128/86 [Right Arm] O2 Sat by Pulse 99 Oximetry - General Appearance General appearance: well-developed, well-nourished, appears stated age, other ( no distress) EENT: PERRL, mucous membranes moist, hearing intact, vision intact Neck: supple Respiratory: Present: Clear to Ascultation Cardiology: regular, S1S2, no murmurs Gastrointestinal: normoactive bowel sounds, no tenderness, no distended Integumentary: no rash, warm and dry Neurologic: no asterixis, CN 3-12 intact, hemiplegic (left sided) Musculoskeletal: other (no edema) Psychiatric: mood/affect appropriate, cooperative - Lab 09/10/16 04:11 09/13/16 05:03 Most recent lab results Calcium 8.9 mg/dL (8.4-10.2) 09/13/16 05:03 Phosphorus 5.0 mg/dL (2.5-4.5) H 09/11/16 03:52 Magnesium 2.4 mg/dL (1.7-2.3) H 09/11/16 03:52
--- NOTE | 2016-09-13 07:52 | Discharge Summary ---
Providers - Providers Date of Admission: 09/09/16 13:55 Date of discharge: 09/13/16 Attending physician: KARLA MONDRAGON 09/09/16 14:40 Consult to Physician [CONS] Routine Consulting Provider: POWER MCCULLOUGH Reason For Exam: renal failure Place consult to:: NEPHRO Notified:: Y Phone number called:: cell If yes, spoke with:: A/S AUDI Time called:: 14:43 09/11/16 15:23 Consult to Wound/ET Nurse [CONS] Routine Reason For Exam: wound eval 09/12/16 09:54 Physical Therapy Evaluation and Treat [CONS] Routine Comment: Reason For Exam: ambulate Primary care physician: SKIP MINER BLASTING Hospitalization Reason for admission: DKA Condition: Stable Hospital course: Patient is a 56-year-old AAM with medical history significant for DM type 2, Hypertension, history of CVA, Left hemiplegia, hyperlipidemia and CKD III who was brought into the hospital by the family for altered mental status. Per , patient was confused and had hallucinations. He had a decreased urine output of one day duration. On presentation he was found to have DKA, blood sugar of 749, potassium of 6.6, Sodium 114 and creatinine 4.9. Patient was treated with IV insulin drip. Patient was seen by pulmonary and nephrology consultation. Patient's encephalopathy was felt to be metabolic in etiology. Once the patient 's DKA resolved and renal status improved, he returned to his baseline mental status. Patient received IV fluid hydration aggressively and his creatinine returned to near baseline of 2.0. Patient was also noted to have rhabdomyolysis with resolution and CK within normal range at the time of discharge. Electrolytes improved with pseudohyponatremia and hyperkalemia resolving. Hold statin sec to rhabdomyolysis. Patient is felt to have received maximal hospital benefit. Patient will be discharged home. The dictated discharge time 35 minutes. Disposition: DISCHARGED TO HOME OR SELFCARE Time spent for discharge: 35 - Discharge Diagnoses (1) GERMAIN (acute kidney injury) Status: Resolved (2) DKA (diabetic ketoacidoses) Status: Resolved Qualifiers: Diabetes mellitus type: type 1 Diabetes mellitus complication detail: D (3) Encephalopathy acute Status: Resolved (4) Hyponatremia Status: Resolved (5) Rhabdomyolysis Status: Resolved Qualifiers: Rhabdomyolysis type: R Encounter type: E (6) Hyperkalemia Status: Resolved Core Measure Documentation - Palliative Care Palliative Care/ Comfort Measures: Not Applicable - Core Measures Any of the following diagnoses?: none Exam - Constitutional Vitals: Temp Pulse Resp BP Pulse Ox 99.8 F H 101 H 20 128/86 99 09/12/16 23:00 09/13/16 03:00 09/12/16 23:00 09/13/16 03:00 09/12/16 23:00 General appearance: Present: no acute distress, well-nourished - EENT Eyes: Present: PERRL ENT: hearing intact, clear oral mucosa - Neck Neck: Present: supple, normal ROM - Respiratory Respiratory effort: normal Respiratory: bilateral: CTA - Cardiovascular Heart Sounds: Present: S1 & S2. Absent: rub, click - Extremities Extremities: pulses symmetrical, No edema Peripheral Pulses: within normal limits - Abdominal General gastrointestinal: Present: soft, non-tender, non-distended, normal bowel sounds Male genitourinary: Present: normal - Integumentary Integumentary: Present: clear, warm, dry - Musculoskeletal Musculoskeletal: gait normal, strength equal bilaterally - Psychiatric Psychiatric: appropriate mood/affect, intact judgment & insight - Neurologic Neurologic: CNII-XII intact, moves all extremities Plan Activity: no restrictions Weight Bearing Status: Full Weight Bearing Diet: diabetic, renal Additional Instructions: hold statin seconxdary to rhabdomyolysis Follow up with: PRIMARY CAREMD [Primary Care Provider] - 3-5 Days POWER MCCULLOUGH MD [Staff Physician] - 7 Days Prescriptions: Insulin Detemir [Levemir] 20 units SUB-Q QHS #30 units NIFEdipine XL [Procardia Xl] 90 mg PO QDAY #30 tablet
[2016-09-13] MEDS: NOVOLOG SUB-Q SCH ×4 (08:22→22:20)
[2016-09-13] MEDS: PROCARDIA XL PO SCH (09:20)
[2016-09-13] MEDS: LOVENOX SUB-Q SCH (09:20)
[2016-09-13] MEDS: GLUCOTROL PO SCH (09:21)
[2016-09-13] MEDS: ROCEPHIN/NS 1 GM/50 ML 1 GM/50 ML BAG IV SCH (09:21)
[2016-09-13] MEDS ORDERED: LEVEMIR SUB-Q SCH (12:00)
[2016-09-14] MEDS ORDERED: TYLENOL PO PRN (00:11)
[2016-09-14 07:24] LABS: BUN/Creatinine Ratio 22.1; Calcium 8.9 mg/dL (8.4-10.2); Potassium 3.5 mmol/L (3.6-5.0)
--- NOTE | 2016-09-14 08:19 | Progress Note ---
Assessment and Plan - Patient Problems (1) GERMAIN (acute kidney injury) Status: Resolved Plan to address problem: Acute kidney Injury superimposed on CKD stage 3 in the setting of DKA. Creatinine continues to improve and likely at his baseline. Hemodynamically stable. F/u with me in 1-2 weeks. (2) Hyperkalemia Status: Resolved Plan to address problem: Hyperkalemia secondary to GERMAIN and DKA. Improved now. (3) Hyponatremia Status: Resolved Plan to address problem: Sodium level is better. (4) DKA (diabetic ketoacidoses) Status: Resolved Qualifiers: Diabetes mellitus type: type 1 Diabetes mellitus complication detail: D Plan to address problem: Improving. (5) Encephalopathy acute Status: Resolved Plan to address problem: Secondary to DKA. Improved. (6) Rhabdomyolysis Status: Resolved Qualifiers: Rhabdomyolysis type: R Encounter type: E Plan to address problem: Improved. Subjective Date of service: 09/14/16 Principal diagnosis: DKA, Acute on CKD Interval history: Patient is doing better Objective - Vital Signs Vital signs: Vital Signs - 12hr 09/13/16 09/13/16 09/14/16 22:00 23:35 00:19 Temperature 100.1 F H Pulse Rate [ 110 H Left] Respiratory 18 18 18 Rate Respiratory 18 Rate [Left Ankle] Respiratory 18 Rate [Right Ankle] Blood Pressure 130/90 [Left Arm] O2 Sat by Pulse 97 Oximetry 09/14/16 01:19 Temperature Pulse Rate [ Left] Respiratory 16 Rate Respiratory Rate [Left Ankle] Respiratory Rate [Right Ankle] Blood Pressure [Left Arm] O2 Sat by Pulse Oximetry - General Appearance General appearance: well-developed, well-nourished, appears stated age, other ( no distress) EENT: PERRL, mucous membranes moist, hearing intact, vision intact Neck: no JVD, supple Respiratory: Present: Clear to Ascultation Cardiology: regular, S1S2, no murmurs Gastrointestinal: normoactive bowel sounds, no tenderness, no distended Integumentary: no rash Neurologic: alert and oriented x3, CN 3-12 intact, hemiplegic (left side) Musculoskeletal: other Psychiatric: mood/affect appropriate, cooperative - Lab 09/10/16 04:11 09/14/16 06:04 Most recent lab results Calcium 8.9 mg/dL (8.4-10.2) 09/14/16 06:04 Phosphorus 5.0 mg/dL (2.5-4.5) H 09/11/16 03:52 Magnesium 2.4 mg/dL (1.7-2.3) H 09/11/16 03:52
[2016-09-14] MEDS: NOVOLOG SUB-Q SCH ×2 (08:21→11:58)
--- NOTE | 2016-09-14 09:16 | Query- Renal Failure ---
Deaneftali Toribio Date:__09/14/16 Machine Grainer/CDS:Jono Dyson Phone#:_[phone] Exercise your independent professional judgment when responding to query. Questions asked do not imply a particular answer is desired or expected. We greatly appreciate your clarification on this issue. Clinical Documentation States: Patient 56-year-old male well known to myself history of CVA, hypertension, diabetes, hyperlipidemia. Patient. Was in the usual state of health doing well until yesterday at approximately 3 PM noted patient not acting the same. stated patient started repeating himself and had some hallucinations such as take the food out of the stove when there was nothing cooking. Clinical Findings Show: 09/09 09/13 Creat: 4.9 1.9 BUN: 77 42 GFR: 15 44 Please clarify if you mean: Acute Renal Failure with or due to: [ ] Tubular Necrosis [ ] Medullary Necrosis [ x] Vasomotor Nephropathy [ ] Shock Kidney [ ] Tubular Nephrosis [ ] Renal Tubular Stasis [ ] Cortical Necrosis [ ] Acute Renal Failure (unspecified) [ ] Lower Tubular Nephrosis [ ] Other: [ ] Not Applicable Present on Admission: [ x] Yes (Y) [ ] Clinically undeterminable (W) [ ] No (N) Please also document response in your Progress Notes and/or Discharge Summary and indicate if the condition was present on admission. GUILHERMED
[2016-09-14] MEDS: ROCEPHIN/NS 1 GM/50 ML 1 GM/50 ML BAG IV SCH (09:45)
[2016-09-14] MEDS: LOVENOX SUB-Q SCH (09:45)
[2016-09-14] MEDS: PROCARDIA XL PO SCH (09:46)
[2016-09-14] MEDS: GLUCOTROL PO SCH (09:46)
--- NOTE | 2016-09-14 10:39 | Event Note ---
Date: 09/14/16 Patient is discharged was here yesterday due to hyperglycemia. Insulin was adjusted and patient's blood sugar is much better control. Patient will be discharged today. Please refer to yesterday's discharge summary.
--- NOTE | 2016-09-14 10:41 | Progress Note ---
Assessment and Plan 1. Diabetic ketoacidosis: Resolved. Insulin drip discontinued. Cont. sliding scale insulin. Continue IV hydration. 2. Acute on CKD stage 3: Secondary to dehydration from DKA. Anticipate improvement with IV hydration and. Trend BUN and creatinine. Baseline creatinine appears to be approximately 1.7-2.0. Creatinine today is 2.6. Continue IV fluid hydration. Anticipate discharge in a.m. 3. Encephalopathy: Secondary to diabetic ketoacidosis. Resolved. 4. Rhabdomyolysis: IV hydration with normal saline. Sodium bicarbonate 1 ampule. Trend total CK. Hold statin. 5. Hyperkalemia: Corrected with IV hydration. Trend potassium level. Magnesium level, high 6. Hyponatremia: improving with hydration. 7. Deconditioning. PT evaluation for ambulation. - Patient Problems (1) GERMAIN (acute kidney injury) Current Visit: Yes Status: Resolved (2) DKA (diabetic ketoacidoses) Current Visit: Yes Status: Resolved Qualifiers: Diabetes mellitus type: type 1 Diabetes mellitus complication detail: D (3) Encephalopathy acute Current Visit: Yes Status: Resolved (4) Hyponatremia Current Visit: Yes Status: Resolved (5) Rhabdomyolysis Current Visit: Yes Status: Resolved Qualifiers: Rhabdomyolysis type: R Encounter type: E (6) Hyperkalemia Current Visit: No Status: Resolved Subjective Date of service: 09/13/16 Principal diagnosis: DKA, Acute on CKD Interval history: No new issues overnight. Objective - Constitutional Vitals: Vital Signs - 12hr 09/13/16 09/14/16 09/14/16 23:35 00:19 01:19 Temperature 100.1 F H Pulse Rate [ 110 H Left] Respiratory 18 18 16 Rate Blood Pressure 130/90 [Left Arm] Blood Pressure [Right Arm] O2 Sat by Pulse 97 Oximetry 09/14/16 08:55 Temperature 99.0 F Pulse Rate [ 100 H Left] Respiratory 20 Rate Blood Pressure [Left Arm] Blood Pressure 124/88 [Right Arm] O2 Sat by Pulse Oximetry General appearance: Present: no acute distress, well-nourished - EENT Eyes: PERRL, EOM intact ENT: hearing intact, clear oral mucosa Ears: bilateral: normal - Neck Neck: supple, normal ROM - Respiratory Respiratory effort: normal Respiratory: bilateral: CTA - Breasts Breasts: normal - Cardiovascular Rhythm: regular Heart Sounds: Present: S1 & S2. Absent: gallop, rub Extremities: pulses intact, No edema, normal color, Full ROM - Gastrointestinal General gastrointestinal: Present: soft, non-tender, non-distended, normal bowel sounds - Genitourinary Male genitourinary: normal - Integumentary Integumentary: clear, warm, dry - Musculoskeletal Musculoskeletal: 1, strength equal bilaterally - Neurologic Neurologic: moves all extremities - Psychiatric Psychiatric: memory intact, appropriate mood/affect, intact judgment & insight - Labs CBC & Chem 7: 09/10/16 04:11 09/14/16 06:04 Labs: Abnormal lab results 09/13/16 09/13/16 09/13/16 Range/Units 10:46 15:09 16:31 Potassium (3.6-5.0) mmol/L BUN (9-20) mg/dL Creatinine (0.8-1.5) mg/dL Glucose (75-100) mg/dL POC Glucose 461 H 446 H 418 H (70-105) 09/13/16 09/14/16 09/14/16 Range/Units 22:02 06:04 06:10 Potassium 3.5 L D (3.6-5.0) mmol/L BUN 42 H (9-20) mg/dL Creatinine 1.9 H (0.8-1.5) mg/dL Glucose 250 H (75-100) mg/dL POC Glucose 450 H 239 H (70-105)
[2016-09-14 14:56] VITALS: BP 122/77
[2016-09-15] MEDS ORDERED: LOVENOX SUB-Q SCH (10:00)
== END 2016-09-14 15:09 | disposition home or self-care (01) | DRG 682 ==
LOC: ED 09:36 → CC1 13:55 → 3A 09-11 13:37
PROVIDERS: ADMIT Internal Medicine; ATTEND Hospitalist
DX: N17.0 Acute kidney failure with tubular necrosis (principal); E10.10 Type 1 diabetes mellitus with ketoacidosis without coma; G93.41 Metabolic encephalopathy; M62.82 Rhabdomyolysis; E87.1 Hypo-osmolality and hyponatremia; I69.354 Hemiplegia and hemiparesis following cerebral infarction affecting left non-dominant side; N18.3 Chronic kidney disease, stage 3 (moderate); I12.9 Hypertensive chronic kidney disease with stage 1 through stage 4 chronic kidney disease, or unspecified chronic kidney disease; E78.5 Hyperlipidemia, unspecified; E10.22 Type 1 diabetes mellitus with diabetic chronic kidney disease; E87.5 Hyperkalemia; E10.65 Type 1 diabetes mellitus with hyperglycemia; M19.90 Unspecified osteoarthritis, unspecified site; Z87.891 Personal history of nicotine dependence; Z79.84 Long term (current) use of oral hypoglycemic drugs; Z83.3 Family history of diabetes mellitus; Z82.49 Family history of ischemic heart disease and other diseases of the circulatory system
CPT/HCPCS: 36415; 70450; 71010; 76770; 80048; 80053; 80061; 80307; 80320; 81001; 82010; 82550; 82553; 82805; 82962; 83735; 84100; 84439; 84443; 84484; 85025; 93005; 93010; 96361; 96365; 96375; G0480; G8978-GP; G8979-GP; J0360; J0696; J1650; J1815; J1818; J2270; J2405; J7030; J7040; J7042

== ENCOUNTER 2017-12-12 09:22 | Inpatient (IN) | payer MEDICARE ==
--- NOTE | 2017-12-12 10:33 | Emergency Department Report ---
ED General Adult HPI - General Chief complaint: Pain General Stated complaint: RT ARM PAIN Time Seen by Provider: 12/12/17 10:20 Source: patient, family, EMS (ems notes not available at time of chart dictation), RN notes reviewed, old records reviewed Mode of arrival: Stretcher Limitations: Physical Limitation - History of Present Illness Initial comments: Primary care Dr.: Dr. Jersey Mena Nephrology: Dr. Barr Hematology oncology: Dr. Wadsworth Past medical history: Diabetes, hypertension, stroke, left hemiplegia, high cholesterol, CK D stage III Wheelchair dependent, This is a 57-year-old male who was brought to the hospital with his and EMS for increasing weakness in his right upper extremity, right lower extremity. These symptoms have been going on since Monday. They're constant. Patient indicates no exacerbating or relieving factors. The patient is a poor historian. There is no trauma. He denies headache, neck pain, chest pain, abdominal pain. He complains of diffuse myalgias in his upper and lower extremities. These are nontraumatic. -: days(s) Location: right, upper extremity, lower extremity Severity scale (0 -10): 8 Consistency: constant Improves with: none Worsens with: none Associated Symptoms: confusion, fever/chills, loss of appetite, weakness - Related Data Home Medications Medication Instructions Recorded Confirmed Last Taken Labetalol HCl 300 mg PO BID 01/23/16 12/12/17 Unknown cloNIDine [Catapres] 0.2 mg PO BID 01/23/16 12/12/17 Unknown Ergocalciferol [Vitamin D2] 1 cap PO QWEEK 12/12/17 12/12/17 Unknown Furosemide [Lasix TAB] 40 mg PO QDAY 12/12/17 12/12/17 Unknown Insulin Glargine,Hum.rec.anlog 15 units SUB-Q QAM 12/12/17 12/12/17 12/12/17 [Basaglar Kwikpen U-100] Insulin Glargine,Hum.rec.anlog 30 units SUB-Q QPM 12/12/17 12/12/17 Unknown [Basaglar Kwikpen U-100] Lactulose [Constulose] 10 gm PO DAILY PRN 12/12/17 12/12/17 Unknown Losartan [Cozaar] 100 mg PO QDAY 12/12/17 12/12/17 Unknown Metformin HCl [Glucophage] 850 mg PO QAM 12/12/17 12/12/17 Unknown Multivitamin Tab [Multiple Vitamin 1 each PO QDAY 12/12/17 12/12/17 Unknown TAB (Theragran)] Potassium Chloride [K-Tab ER] 20 meq PO QDAY 12/12/17 12/12/17 Unknown Pravastatin [Pravachol] 20 mg PO DAILY 12/12/17 12/12/17 Unknown glipiZIDE [Glipizide] 10 mg PO QDAY 12/12/17 12/12/17 Unknown oxyCODONE /ACETAMINOPHEN [Percocet 1 tab PO Q8H PRN 12/12/17 12/12/17 Unknown 5/325] Previous Rx's Medication Instructions Recorded Last Taken Type NIFEdipine XL [Procardia Xl] 90 mg PO QDAY #30 tablet 09/13/16 Unknown Rx Allergies Allergy/AdvReac Type Severity Reaction Status Date / Time No Known Allergies Allergy Unverified 01/23/16 10:13 ED Review of Systems ROS: Stated complaint: RT ARM PAIN Other details as noted in HPI Comment: Unobtainable due to pts medical conditions ED Past Medical Hx - Past Medical History Previous Medical History?: Yes Hx Hypertension: Yes Hx CVA: Yes (with residual left-sided weakness) Hx Congestive Heart Failure: No Hx Diabetes: Yes Hx Asthma: No Hx COPD: No Hx HIV: No Additional medical history: elevated cholesterol - Surgical History Past Surgical History?: No - Social History Smoking Status: Never Smoker - Medications Home Medications: Home Medications Medication Instructions Recorded Confirmed Last Taken Type Labetalol HCl 300 mg PO BID 01/23/16 12/12/17 Unknown History cloNIDine [Catapres] 0.2 mg PO BID 01/23/16 12/12/17 Unknown History NIFEdipine XL [Procardia Xl] 90 mg PO QDAY #30 tablet 09/13/16 12/12/17 Unknown Rx Ergocalciferol [Vitamin D2] 1 cap PO QWEEK 12/12/17 12/12/17 Unknown History Furosemide [Lasix TAB] 40 mg PO QDAY 12/12/17 12/12/17 Unknown History Insulin Glargine,Hum.rec.anlog 15 units SUB-Q QAM 12/12/17 12/12/17 12/12/17 History [Basaglar Kwikpen U-100] Insulin Glargine,Hum.rec.anlog 30 units SUB-Q QPM 12/12/17 12/12/17 Unknown History [Basaglar Kwikpen U-100] Lactulose [Constulose] 10 gm PO DAILY PRN 12/12/17 12/12/17 Unknown History Losartan [Cozaar] 100 mg PO QDAY 12/12/17 12/12/17 Unknown History Metformin HCl [Glucophage] 850 mg PO QAM 12/12/17 12/12/17 Unknown History Multivitamin Tab [Multiple Vitamin 1 each PO QDAY 12/12/17 12/12/17 Unknown History TAB (Theragran)] Potassium Chloride [K-Tab ER] 20 meq PO QDAY 12/12/17 12/12/17 Unknown History Pravastatin [Pravachol] 20 mg PO DAILY 12/12/17 12/12/17 Unknown History glipiZIDE [Glipizide] 10 mg PO QDAY 12/12/17 12/12/17 Unknown History oxyCODONE /ACETAMINOPHEN [Percocet 1 tab PO Q8H PRN 12/12/17 12/12/17 Unknown History 5/325] ED Physical Exam - General Limitations: Physical Limitation General appearance: alert, in no apparent distress - Head Head exam: Present: atraumatic, normocephalic - Eye Eye exam: Present: normal appearance, EOMI. Absent: nystagmus - ENT ENT exam: Present: mucous membranes dry - Neck Neck exam: Present: normal inspection, full ROM - Respiratory Respiratory exam: Present: normal lung sounds bilaterally. Absent: respiratory distress - Cardiovascular Cardiovascular Exam: Present: regular rate, normal rhythm, normal heart sounds. Absent: bradycardia, tachycardia, systolic murmur, diastolic murmur, rubs, gallop - GI/Abdominal GI/Abdominal exam: Present: soft, normal bowel sounds. Absent: distended, tenderness, guarding, rebound, rigid, pulsatile mass - Rectal Rectal exam: Present: deferred - Extremities Exam Extremities exam: Present: normal inspection, full ROM, normal capillary refill , other (the compartments are soft. The patient has contractures in the left upper, left lower extremity. He moves 4 extremities against gravity, sensation is intact to light touch. The right upper extremity is slightly warm. The compartments are soft. Patient grimaces when the bilateral elbows are ranged, the bilateral wrists are Ranged, when the bilateral knees are ranged, and when the bilateral ankles are ranged.). Absent: calf tenderness - Back Exam Back exam: Present: normal inspection. Absent: tenderness, paraspinal tenderness - Neurological Exam Neurological exam: Present: alert, motor sensory deficit (there is 3 out of 5 strength left upper, left lower extremity. There is 3 out of 5 strength right upper, right lower extremity. Sensation is intact to light touch 4 extremities. ), other (there is no facial droop. The tongue is midline. Extraocular movements are intact. Patient follows commands.) - Psychiatric Psychiatric exam: Present: normal affect, normal mood - Skin Skin exam: Present: warm, dry, intact, normal color. Absent: rash ED Course Vital Signs 12/12/17 12/12/17 12/12/17 09:46 09:55 10:00 Temperature 99.2 F Pulse Rate 99 H 95 H 96 H Respiratory 22 23 Rate Blood Pressure 132/90 126/86 Blood Pressure [Left] O2 Sat by Pulse 96 96 Oximetry 12/12/17 12/12/17 12/12/17 10:14 10:15 10:30 Temperature 99.2 F Pulse Rate 95 H 96 H 99 H Respiratory 22 13 21 Rate Blood Pressure 126/86 126/86 Blood Pressure 132/90 [Left] O2 Sat by Pulse 96 97 96 Oximetry 12/12/17 12/12/17 12/12/17 10:47 11:00 11:14 Temperature 101.0 F H Pulse Rate 95 H 104 H Respiratory 22 21 Rate Blood Pressure 126/86 131/98 Blood Pressure [Left] O2 Sat by Pulse 95 96 Oximetry 12/12/17 12/12/17 11:15 11:50 Temperature Pulse Rate 101 H Respiratory 22 17 Rate Blood Pressure 131/98 Blood Pressure [Left] O2 Sat by Pulse 96 Oximetry - Reevaluation(s) Reevaluation #1: 12/12/17 14:18 Differential diagnosis, including but not limited to: Subacute stroke, deconditioning, debility, pneumonia, urinary tract infection, bacteremia, polyarthritis, viral syndrome Assessment and plan: 57-year-old male with subacute weakness in the right body, symptoms have been present for 48 hours, therefore not a TPA candidate or an endovascular candidate. He is also found to have fever, tachycardia, and leukocytosis. Etiology of fever uncertain at this time. High suspicion for subacute stroke at this time, therefore the fever may be a central stroke. On my examination the upper extremities appear to be symmetric and do not appear to be swollen, and the patient grimaces when all 4 extremities are examined. He has mild pain with passive range of motion in the upper, lower extremities, and is not able to clarify if his joints are hurting him more than usual. He' ll be treated along the sepsis pathway, he'll be given aspirin, and the Hospital physician, Dr. Zimmerman accepted the patient to his service. I contacted his private oncologist, Dr. Wadsworth, she indicates the patient has not had any therapy for his multiple myeloma, that he has not followed up with her in quite some time. ED Medical Decision Making - Lab Data Result diagrams: 12/12/17 11:00 12/12/17 11:00 Vital Signs 12/12/17 12/12/17 12/12/17 09:46 09:55 10:00 Temperature 99.2 F Pulse Rate 99 H 95 H 96 H Respiratory 22 23 Rate Blood Pressure 132/90 126/86 Blood Pressure [Left] O2 Sat by Pulse 96 96 Oximetry 12/12/17 12/12/17 12/12/17 10:14 10:15 10:30 Temperature 99.2 F Pulse Rate 95 H 96 H 99 H Respiratory 22 13 21 Rate Blood Pressure 126/86 126/86 Blood Pressure 132/90 [Left] O2 Sat by Pulse 96 97 96 Oximetry 12/12/17 12/12/17 12/12/17 10:47 11:00 11:14 Temperature 101.0 F H Pulse Rate 95 H 104 H Respiratory 22 21 Rate Blood Pressure 126/86 131/98 Blood Pressure [Left] O2 Sat by Pulse 95 96 Oximetry 12/12/17 12/12/17 11:15 11:50 Temperature Pulse Rate 101 H Respiratory 22 17 Rate Blood Pressure 131/98 Blood Pressure [Left] O2 Sat by Pulse 96 Oximetry Labs 12/12/17 12/12/17 12/12/17 11:00 11:00 11:00 WBC 11.8 H RBC 3.67 Hgb 9.6 L Hct 30.5 L MCV 83 L MCH 26 L MCHC 32 RDW 16.8 H Plt Count 233 Lymph % (Auto) 9.8 L Person % (Auto) 10.3 H Eos % (Auto) 0.7 Baso % (Auto) 0.4 Lymph # 1.2 Person # 1.2 H Eos # 0.1 Baso # 0.0 Seg Neutrophils % 78.8 H Seg Neutrophils # 9.3 H ESR PT 15.8 H INR 1.19 H APTT 41.1 H Thrombin Time 15.3 Sodium 142 Potassium 4.2 Chloride 101.6 Carbon Dioxide 21 L Anion Gap 24 BUN 69 H Creatinine 2.0 H Estimated GFR 42 BUN/Creatinine Ratio 35 Glucose 139 H Lactic Acid Calcium 10.0 Magnesium Total Bilirubin 0.40 AST 15 ALT 11 Alkaline Phosphatase 110 Total Creatine Kinase 166 CK-MB (CK-2) 2.9 CK-MB (CK-2) Rel Index 1.7 Troponin T 0.157 H* C-Reactive Protein Total Protein 8.4 H Albumin 3.6 L Albumin/Globulin Ratio 0.8 Triglycerides 180 H Cholesterol 117 LDL Cholesterol Direct 60 HDL Cholesterol 34 L Cholesterol/HDL Ratio 3.44 Urine Color Urine Turbidity Urine pH Ur Specific Mobile Urine Protein Urine Glucose (UA) Urine Ketones Urine Blood Urine Nitrite Urine Bilirubin Urine Urobilinogen Ur Leukocyte Esterase Urine WBC (Auto) Urine RBC (Auto) Blood Type 12/12/17 12/12/17 12/12/17 11:00 11:40 11:40 WBC RBC Hgb Hct MCV MCH MCHC RDW Plt Count Lymph % (Auto) Person % (Auto) Eos % (Auto) Baso % (Auto) Lymph # Person # Eos # Baso # Seg Neutrophils % Seg Neutrophils # ESR > 140.0 PT INR APTT Thrombin Time Sodium Potassium Chloride Carbon Dioxide Anion Gap BUN Creatinine Estimated GFR BUN/Creatinine Ratio Glucose Lactic Acid 1.20 Calcium Magnesium 2.20 Total Bilirubin AST ALT Alkaline Phosphatase Total Creatine Kinase 168 CK-MB (CK-2) CK-MB (CK-2) Rel Index Troponin T C-Reactive Protein Total Protein Albumin Albumin/Globulin Ratio Triglycerides Cholesterol LDL Cholesterol Direct HDL Cholesterol Cholesterol/HDL Ratio Urine Color Urine Turbidity Urine pH Ur Specific Mobile Urine Protein Urine Glucose (UA) Urine Ketones Urine Blood Urine Nitrite Urine Bilirubin Urine Urobilinogen Ur Leukocyte Esterase Urine WBC (Auto) Urine RBC (Auto) Blood Type 12/12/17 12/12/17 12/12/17 11:40 12:25 12:25 WBC RBC Hgb Hct MCV MCH MCHC RDW Plt Count Lymph % (Auto) Person % (Auto) Eos % (Auto) Baso % (Auto) Lymph # Person # Eos # Baso # Seg Neutrophils % Seg Neutrophils # ESR PT INR APTT Thrombin Time Sodium Potassium Chloride Carbon Dioxide Anion Gap BUN Creatinine Estimated GFR BUN/Creatinine Ratio Glucose Lactic Acid 1.20 Calcium Magnesium Total Bilirubin AST ALT Alkaline Phosphatase Total Creatine Kinase CK-MB (CK-2) CK-MB (CK-2) Rel Index Troponin T C-Reactive Protein 25.50 H Total Protein Albumin Albumin/Globulin Ratio Triglycerides Cholesterol LDL Cholesterol Direct HDL Cholesterol Cholesterol/HDL Ratio Urine Color Urine Turbidity Urine pH Ur Specific Mobile Urine Protein Urine Glucose (UA) Urine Ketones Urine Blood Urine Nitrite Urine Bilirubin Urine Urobilinogen Ur Leukocyte Esterase Urine WBC (Auto) Urine RBC (Auto) Blood Type O POSITIVE 12/12/17 13:21 WBC RBC Hgb Hct MCV MCH MCHC RDW Plt Count Lymph % (Auto) Person % (Auto) Eos % (Auto) Baso % (Auto) Lymph # Person # Eos # Baso # Seg Neutrophils % Seg Neutrophils # ESR PT INR APTT Thrombin Time Sodium Potassium Chloride Carbon Dioxide Anion Gap BUN Creatinine Estimated GFR BUN/Creatinine Ratio Glucose Lactic Acid Calcium Magnesium Total Bilirubin AST ALT Alkaline Phosphatase Total Creatine Kinase CK-MB (CK-2) CK-MB (CK-2) Rel Index Troponin T C-Reactive Protein Total Protein Albumin Albumin/Globulin Ratio Triglycerides Cholesterol LDL Cholesterol Direct HDL Cholesterol Cholesterol/HDL Ratio Urine Color Yellow Urine Turbidity Clear Urine pH 5.0 Ur Specific Mobile 1.012 Urine Protein 30 mg/dl Urine Glucose (UA) Neg Urine Ketones Neg Urine Blood Neg Urine Nitrite Neg Urine Bilirubin Neg Urine Urobilinogen < 2.0 Ur Leukocyte Esterase Neg Urine WBC (Auto) < 1.0 Urine RBC (Auto) 1.0 Blood Type - EKG Data -: EKG Interpreted by Sd - EKG Data 12/12/17 14:18 Sinus tachycardia, 101 bpm, left axis deviation, motion artifact, left ventricular hypertrophy, not having chest pain, not a STEMI, QTC prolonged - Radiology Data Radiology results: report reviewed, image reviewed Noncontrast CT scan of the brain is negative. X-ray of the chest is negative. Critical care attestation.: If time is entered above; I have spent that time in minutes in the direct care of this critically ill patient, excluding procedure time. ED Disposition Clinical Impression: Sepsis, Right-sided muscle weakness Disposition: [id number] OP ADMIT IP TO THIS HOSP Is pt being admited?: Yes Does the pt Need Aspirin: Yes Condition: Good Referrals: JERSEY MENA MD [Primary Care Provider] - 3-5 Days - Assessment Assessment Interval: Baseline - Level of Consciousness 1a. Level of Consciousness: alert - LOC Questions 1b. LOC Questions: answers 1 question correctly - LOC Command 1c. LOC Commands: performs tasks correctly - Best Gaze 2. Best Gaze: normal - Visual 3. Visual: no visual loss - Facial Palsy 4. Facial Palsy: normal symmetrical movement - Motor Arm 5b. Motor Arm Right: some gravity effort 5a. Motor Arm Left: some gravity effort - Motor Leg 6a. Motor Leg Left: some gravity effort 6b. Motor Leg Right: some gravity effort - Limb Ataxia 7. Limb Ataxia: absent - Sensory 8. Sensory: normal - Best Language 9. Best Language: no aphasia - Dysarthria 10. Dysarthria: normal - Extinction and Inattention 11. Extinction/Inattention: visual/tactile inattention - Scoring Total Score: 10 Stroke Severity: Moderate Stroke
--- NOTE | 2017-12-12 10:59 | Cat Scan Report ---
CT HEAD WITHOUT CONTRAST: HISTORY: Stroke symptoms. TECHNIQUE: Sequential CT images without contrast. FINDINGS: Compared to the exam dated 09/09/16. Mild diffuse volume loss and nonspecific chronic white matter changes are stable. There are multiple focal chronic infarcts in the right cerebellar hemisphere which are unchanged. A chronic lacunar infarct in the right elin is identified which appears to be new since the previous exam. No large chronic infarct is identified. There is no evidence for hemorrhage, mass or extra-axial fluid collection. Ventricular size is stable and within normal limits. The calvarium, mastoid air cells and visualized sinuses are unremarkable. IMPRESSION: Volume loss. Nonspecific chronic white matter changes. Chronic focal infarcts as described above. No acute intracranial process is detected on noncontrast CT.
--- NOTE | 2017-12-12 11:06 | XRay Report ---
AP CHEST: HISTORY: Weakness, pneumonia There is poor inspiration. AP view of the chest demonstrates a normal mediastinal and cardiac contour with clear lungs and normal bony and soft tissue structures. IMPRESSION: No acute cardiopulmonary process. No significant change since 09/09/16.
[2017-12-12] MEDS ORDERED: NACL 0.9% 1000 ML IV ONE (11:15)
[2017-12-12 11:32] LABS: Basophils % (Auto) 0.4 % (0.0-1.8); Eosinophils # (Auto) 0.1 K/mm3 (0.0-0.4); Eosinophils % (Auto) 0.7 % (0.0-4.3); Hematocrit 30.5 % (35.5-45.6); Hemoglobin 9.6 gm/dl (11.8-15.2); Lymphocytes # (Auto) 1.2 K/mm3 (1.2-5.4); Lymphocytes % (Auto) 9.8 % (13.4-35.0); Mean Corpuscular HGB Conc 32 % (32-34); Mean Corpuscular Hemoglobin 26 pg (28-32); Mean Corpuscular Volume 83 fl (84-94); Monocytes # (Auto) 1.2 K/mm3 (0.0-0.8); Monocytes % (Auto) 10.3 % (0.0-7.3); Platelet Count 233 K/mm3 (140-440); Red Blood Count 3.67 M/mm3 (3.65-5.03); Red Cell Distribution Width 16.8 % (13.2-15.2)
[2017-12-12 11:42] LABS: INR 1.19 (0.87-1.13)
[2017-12-12 11:43] LABS: Partial Thromboplastin Time 41.1 Sec. (24.2-36.6); Thrombin Time 15.3 Sec. (15.1-19.6)
[2017-12-12 11:47] LABS: Creatine Kinase MB 2.9 ng/mL (0.0-4.0)
[2017-12-12 11:50] LABS: Albumin 3.6 g/dL (3.9-5)
[2017-12-12] MEDS: TYLENOL PO PRN ×2 (11:50→21:54)
[2017-12-12] MEDS ORDERED: MAXIPIME/NS 2 GM/100 ML 2 GM/100 ML BAG IV SCH (12:00)
[2017-12-12] MEDS ORDERED: MAXIPIME 2 GM in NACL 0.9% 20 ML IV ONE (12:00)
[2017-12-12 12:17] LABS: Chol/HDL Ratio 3.44 %
[2017-12-12 13:58] LABS: Bilirubin,Urine NEG (Negative); Blood,Urine NEG (Negative); Color,Urine Yellow (Yellow); Urobilinogen,Urine < 2.0 mg/dL (<2.0); WBC,Urine < 1.0 /HPF (0.0-6.0)
[2017-12-12] MEDS ORDERED: VANCOMYCIN 1,750 MG in NACL 0.9% 500 ML 500 ML IV ONE (14:00)
[2017-12-12] MEDS ORDERED: BABY ASPIRIN PO ONE (14:23)
--- NOTE | 2017-12-12 21:23 | Event Note ---
Date: 12/12/17 See dictated history and physical in the reports Acute CVA with right-sided weakness
[2017-12-12] MEDS ORDERED: SODIUM CHLORIDE FLUSH SYRINGE 10 ML IV PRN (21:34)
[2017-12-12] MEDS ORDERED: LASIX PO SCH (22:00)
[2017-12-12] MEDS ORDERED: PRAVACHOL PO SCH (22:00)
[2017-12-12 22:51] LABS: % Iron Saturation 6.98 %
[2017-12-13] MEDS: HumaLOG SUB-Q SCH ×5 (00:18→22:54)
[2017-12-13] MEDS: PROCARDIA XL PO SCH ×2 (00:22→16:14)
[2017-12-13] MEDS: COZAAR PO SCH ×2 (00:22→16:14)
[2017-12-13] MEDS: CATAPRES PO SCH ×3 (00:23→21:47)
[2017-12-13] MEDS: NORMODYNE PO SCH ×3 (00:24→21:46)
[2017-12-13] MEDS: PRAVACHOL PO SCH ×2 (01:20→16:15)
--- NOTE | 2017-12-13 02:58 | History and Physical Report ---
CHIEF COMPLAINT: Right upper extremity and lower extremity weakness. HISTORY OF PRESENT ILLNESS: A 57-year-old male with history of cerebrovascular accident and left-sided weakness, now comes to the hospital for right upper extremity and right lower extremity weakness of 2 days' duration. These symptoms have been going on since Monday. The patient did not seek immediate attention. The patient unable to walk. The patient normally also is bedridden because of his left-sided weakness, now he has right-sided weakness for the last 2 days. No exacerbating or relieving factors. The patient unable to lift his right upper extremity and right lower extremity. PAST MEDICAL HISTORY: Significant for, 1. Hypertension. 2. Vitamin D deficiency. 3. Congestive heart failure. 4. Insulin-dependent diabetes. 5. Hyperlipidemia. 6. Chronic pain. CURRENT MEDICATIONS: On the chart. PAST MEDICAL HISTORY: As mentioned, hypertension, cerebrovascular accident, hyperlipidemia. SURGICAL HISTORY: None. SOCIAL HISTORY: He does not smoke. No alcohol, no recreational drugs. Lives with his . FAMILY HISTORY: Significant for hypertension. REVIEW OF SYSTEMS: Significant for new onset right upper extremity and right lower extremity weakness, which is there for 48-72 hours. The patient had left upper and left lower extremity weakness for a long period. Otherwise, review of systems negative. PHYSICAL EXAMINATION: GENERAL: Late middle-aged male, 57-year-old. VITAL SIGNS: Significant for blood pressure 143/96, temperature 98.6, pulse is 107, respiratory rate is 28, and sats are 97%. HEENT: Unremarkable. Pupils equal and reactive. NECK: Supple, no lymphadenopathy, no thyromegaly. LUNGS: Clear to auscultation and percussion. Good air entry. CARDIOVASCULAR: S1, S2 heard. No gallop, no murmur, no rub. Apical impulse in the left fifth intercostal space and midclavicular line. ABDOMEN: Soft and benign. No hepatosplenomegaly. No guarding, no rigidity. Hernial orifices are normal. EXTREMITIES: Good pedal pulses. No pedal edema. CENTRAL NERVOUS SYSTEM: Right upper extremity and right lower extremity power is 3/5, left upper extremity and left lower extremity power is also 3+/5. No facial droop. The patient cannot walk. Otherwise, sensory system is normal. SKIN: Normal. LABORATORY DATA: Significant for white count 11,800, H and H is 9.6 and 30.5, platelet count is 233,000. BUN and creatinine 69 and 2.0, elevated. Sodium is 142, potassium is 4.2. Iron is 12. Troponin is 0.157. C-reactive protein is 25.5. Urine is negative. EKG shows sinus tachycardia, heart rate of 101. LVH criteria present. No acute ST-T wave changes. CT of the head shows no acute findings, volume loss. Nonspecific chronic white matter changes. Chronic focal infarct. ASSESSMENT AND PLAN: 1. New onset cerebrovascular accident with right-sided weakness. Cerebrovascular accident protocol initiated. MRI/MRA, echocardiogram, and carotid duplex scan ordered. 2. Hypertension, continue labetalol, clonidine. 3. Insulin-dependent diabetes, continue home insulin and coverage. 4. Hypertension, continue antihypertensives. 5. Vitamin D deficiency, continue vitamin D. 6. Hyperlipidemia, continue pravastatin or Lipitor 40 mg at bedtime. 7. Chronic pain, continue Percocet. 8. Anemia, iron studies ordered. B12 and folic acid also ordered. Probably nutritional. 9. Acute kidney injury, Nephrology consult ordered. Intravenous fluids ordered. BUN and creatinine 69 and 2.0. 10. Elevated troponin, probably secondary to the elevated creatinine. 11. Deep venous thrombosis prophylaxis, Lovenox 30 mg subcutaneous daily. JOB# [id number] VSM/NTS
[2017-12-13] MEDS ORDERED: K-DUR PO SCH (10:00)
[2017-12-13] MEDS ORDERED: GLUCOPHAGE PO SCH (10:00)
--- NOTE | 2017-12-13 13:13 | Consultation ---
History of Present Illness Consult date: 12/13/17 Requesting physician: ALFONSO SILVA Reason for Consult: Acute CVA. Chief complaint: Right side weakness History of present illness: 57-year-old male with a past medical history of HTN, dyslipidemia and CVA with residual left side weakness who was brought to the hospital with his and EMS for increasing weakness in his right upper extremity, right lower extremity. These symptoms have been going on since Monday. They're constant. Patient indicates no exacerbating or relieving factors. The patient is a poor historian. There is no trauma. He complains of diffuse myalgias in his upper and lower extremities. He was diagnosed as multiple myeloma recently. Past History Past Medical History: hypertension, hyperlipidemia, stroke Past Surgical History: No surgical history Social history: no significant social history Family history: cancer, diabetes, hypertension, stroke Medications and Allergies Allergies Allergy/AdvReac Type Severity Reaction Status Date / Time No Known Allergies Allergy Unverified 01/23/16 10:13 Home Medications Medication Instructions Recorded Confirmed Last Taken Type Labetalol HCl 300 mg PO BID 01/23/16 12/12/17 Unknown History cloNIDine [Catapres] 0.2 mg PO BID 01/23/16 12/12/17 Unknown History NIFEdipine XL [Procardia Xl] 90 mg PO QDAY #30 tablet 09/13/16 12/12/17 Unknown Rx Ergocalciferol [Vitamin D2] 1 cap PO QWEEK 12/12/17 12/12/17 Unknown History Furosemide [Lasix TAB] 40 mg PO QDAY 12/12/17 12/12/17 Unknown History Insulin Glargine,Hum.rec.anlog 15 units SUB-Q QAM 12/12/17 12/12/17 12/12/17 History [Basaglar Kwikpen U-100] Insulin Glargine,Hum.rec.anlog 30 units SUB-Q QPM 12/12/17 12/12/17 Unknown History [Basaglar Kwikpen U-100] Lactulose [Constulose] 10 gm PO DAILY PRN 12/12/17 12/12/17 Unknown History Losartan [Cozaar] 100 mg PO QDAY 12/12/17 12/12/17 Unknown History Metformin HCl [Glucophage] 850 mg PO QAM 12/12/17 12/12/17 Unknown History Multivitamin Tab [Multiple Vitamin 1 each PO QDAY 12/12/17 12/12/17 Unknown History TAB (Theragran)] Potassium Chloride [K-Tab ER] 20 meq PO QDAY 12/12/17 12/12/17 Unknown History Pravastatin [Pravachol] 20 mg PO DAILY 12/12/17 12/12/17 Unknown History glipiZIDE [Glipizide] 10 mg PO QDAY 12/12/17 12/12/17 Unknown History oxyCODONE /ACETAMINOPHEN [Percocet 1 tab PO Q8H PRN 12/12/17 12/12/17 Unknown History 5/325] Active Meds: Active Medications Acetaminophen (Tylenol) 650 mg PO Q6H PRN PRN Reason: Pain, Mild (1-3) Last Admin: 12/12/17 21:54 Dose: 650 mg Atorvastatin Calcium (Lipitor) 40 mg PO QHS [facility] Last Admin: 12/13/17 00:20 Dose: 40 mg Clonidine HCl (Catapres) 0.2 mg PO BID [facility] Last Admin: 12/13/17 00:23 Dose: 0.2 mg Enoxaparin Sodium (Lovenox) 40 mg SUB-Q QDAY@1000 [facility] Insulin Human Lispro (Humalog) 0 unit SUB-Q [facility]; Protocol Last Admin: 12/13/17 07:42 Dose: Not Given Labetalol HCl (Normodyne) 300 mg PO BID [facility] Last Admin: 12/13/17 00:24 Dose: 300 mg Losartan Potassium (Cozaar) 100 mg PO QDAY [facility] Last Admin: 12/13/17 00:22 Dose: 100 mg Nifedipine (Procardia Xl) 90 mg PO QDAY [facility] Last Admin: 12/13/17 00:22 Dose: 90 mg Oxycodone/Acetaminophen (Percocet 5/325) 1 tab PO Q8H PRN PRN Reason: Pain, Moderate (4-6) Pravastatin Sodium (Pravachol) 20 mg PO DAILY [facility] Last Admin: 12/13/17 01:20 Dose: 20 mg Sodium Chloride (Sodium Chloride Flush Syringe 10 Ml) 10 ml IV PRN PRN PRN Reason: LINE FLUSH Review of Systems Constitutional: other (Not fully oriented. Pains all over. All extremities weakness, left > right. All other 10 points of systems are reviewed and negative.) Physical Examination - Vital Signs Vital Signs: Vital Signs Pulse 99 H 12/12/17 09:46 - Constitutional General appearance: comfortable - EENT EENT: Present: PERRL, vision intact - Respiratory Respiratory: Present: lungs clear, no respiratory distress - Cardiovascular Cardiovascular: Present: regular rate, no murmurs Extremities: Present: no peripheral edema bilatateraly, no clubbing, cyanosis - Gastrointestinal Gastrointestinal: Present: soft, non-tender - Integumentary Integumentary: Present: normal - Neurologic Cranial nerve examination: PERRL, EOMI, V1/V2/V3 grossly intact, intact Speech examination: intact Sensorimotor examination: rigidity Detailed motor examination: other (Left 1/5, right 1-3/5. Tenderness in all extremities.) Detailed sensory examination: other (Left side decreased.) Reflexes: 0: ankle, bicep, knee, tricep - Psychiatric Psychiatric: Present: mood/affect appropriate - Assessment Assessment Interval: Baseline - Level of Consciousness 1a. Level of Consciousness: alert - LOC Questions 1b. LOC Questions: answers 1 question correctly - LOC Command 1c. LOC Commands: performs tasks correctly - Best Gaze 2. Best Gaze: normal - Visual 3. Visual: no visual loss - Facial Palsy 4. Facial Palsy: normal symmetrical movement - Motor Arm 5b. Motor Arm Right: some gravity effort - Motor Leg 6a. Motor Leg Left: some gravity effort - Limb Ataxia 7. Limb Ataxia: absent - Sensory 8. Sensory: normal - Best Language 9. Best Language: no aphasia - Dysarthria 10. Dysarthria: normal - Extinction and Inattention 11. Extinction/Inattention: visual/tactile inattention Results - Laboratory Findings CBC and BMP: 12/12/17 11:00 12/12/17 11:00 Abnormal Lab Findings: Abnormal Labs 12/12/17 12/12/17 12/12/17 11:00 11:00 11:00 WBC 11.8 H Hgb 9.6 L Hct 30.5 L MCV 83 L MCH 26 L RDW 16.8 H Lymph % (Auto) 9.8 L [place] % (Auto) 10.3 H [place] # 1.2 H Seg Neutrophils % 78.8 H Seg Neutrophils # 9.3 H PT 15.8 H INR 1.19 H APTT 41.1 H Carbon Dioxide 21 L BUN 69 H Creatinine 2.0 H Glucose 139 H POC Glucose Iron TIBC Transferrin Troponin T 0.157 H* C-Reactive Protein Total Protein 8.4 H Albumin 3.6 L Triglycerides 180 H HDL Cholesterol 34 L 12/12/17 12/12/17 12/12/17 11:40 21:31 21:56 WBC Hgb Hct MCV MCH RDW Lymph % (Auto) [place] % (Auto) [place] # Seg Neutrophils % Seg Neutrophils # PT INR APTT Carbon Dioxide BUN Creatinine Glucose POC Glucose 181 H Iron 12 L TIBC 172 L Transferrin 148 L Troponin T C-Reactive Protein 25.50 H Total Protein Albumin Triglycerides HDL Cholesterol 12/12/17 12/13/17 23:57 05:51 WBC Hgb Hct MCV MCH RDW Lymph % (Auto) [place] % (Auto) [place] # Seg Neutrophils % Seg Neutrophils # PT INR APTT Carbon Dioxide BUN Creatinine Glucose POC Glucose 165 H 140 H Iron TIBC Transferrin Troponin T C-Reactive Protein Total Protein Albumin Triglycerides HDL Cholesterol Assessment and Plan 1. Right side weakness and pains since Monday, unclear etiologies. 2. 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 3. New CVA as differential. Right side weakness since Monday. Brain MRI, Echo and carotid Doppler. 4. Multiple myeloma. Brain metastasis as differential. Pending brain MRI. 5. DM. Medicine. 6. HTN. Medicine. 7. Dyslipidemia. Statin. 8. Treat risk factors of CVA. Aspirin. 9. OT/PT, rehab and speech. 10. Oncology for multiple myeloma. 11. Renal failure. Nephrology. 12. Plan discussed with him, his , sister and his nurse. 13. If D/C, F/U with neurology in 4-6 weeks.
[2017-12-13] MEDS ORDERED: VANCOMYCIN 1,250 MG in NACL 0.9% 250ML 250 ML IV SCH (14:00)
[2017-12-13] MEDS ORDERED: VANCOMYCIN/NS 1 GM/250 ML 1 GM/250 ML BAG IV SCH (14:00)
--- NOTE | 2017-12-13 14:17 | Magnetic Resonance Report ---
FINAL REPORT EXAM: MR BRAIN WO CON HISTORY: stroke TECHNIQUE: Multiplanar multisequence brain MR imaging without IV contrast. PRIORS: None. FINDINGS: Nonspecific multiple punctate susceptibility signal void foci are scattered throughout the cerebral hemispheres, cerebellum, brainstem, and basal ganglia bilaterally. Chronic appearing small infarcts in the posterior lateral right cerebellar hemisphere with slight volume loss and encephalomalacia. Slight mucosal thickening maxillary sinuses and left mastoid sinus.The included air filled sinuses contain no acute fluid level. Foci of hyperintensity in the cerebral white matter, while nonspecific, are present and usually attributed to chronic ischemic gliosis. It can occur secondary to the normal aging process, hypertension, vasculitis, migraine related changes, or arterial sclerotic vascular disease. The differential includes any cause of gliosis as well as demyelination in the appropriate clinical setting. There is ventricular and sulcal prominence compatible with global symmetric cerebrocortical atrophy. The brain is without mass, mass effect, hemorrhage, or acute infarct. There are no areas of brain restricted diffusion to suggest an acute ischemic infarct. There is no midline shift or brain edema. IMPRESSION: No acute CVA or brain mass Multifocal bilateral susceptibility signal void foci are nonspecific and suggest underlying chronic process. Differential includes prior trauma, cerebral amyloid, chronic micro hematoma, or cortical calcification. Correlation with head CT may be useful to evaluate for calcification. Chronic appearing small infarcts in the posterolateral right cerebellar hemisphere Slight mucosal thickening maxillary sinuses and left mastoid sinus without evidence of acute fluid level Diffuse atrophy and suggestion of chronic ischemic gliosis
--- NOTE | 2017-12-13 14:28 | Magnetic Resonance Report ---
FINAL REPORT EXAM: MR MRA/MRV HEAD WO CON HISTORY: stroke TECHNIQUE: Multiplanar multisequence brain MR imaging without IV contrast. PRIORS: Brain MRI 12/13/2017 FINDINGS: The included carotid and vertebral arteries reveal no significant abnormality. No evidence of occlusion, vascular malformation, or aneurysm. 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 3D images suggest stenosis in the M2 segment of the left MCA but axial source images show no evidence of stenosis. Short segment high-grade stenosis in the left [employer] origin may be from atherosclerotic change or vasospasm. Diameter calculation corresponds to approximately 82 % stenosis. Similar finding in proximal right [employer], P1 segment, with diameter calculation corresponding to approximately 79 % stenosis. No other definite [employer] stenosis on source images. 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
[2017-12-13] MEDS: LOVENOX SUB-Q SCH (16:14)
[2017-12-13] MEDS: TYLENOL PO PRN (16:18)
[2017-12-13] MEDS: PERCOCET 5/325 PO PRN (18:10)
--- NOTE | 2017-12-13 20:15 | Progress Note ---
Assessment and Plan Assessment and plan: --Acute CVA; right-sided weakness Patient not a candidate for TPA or thrombectomy Neuro workup is in progress, neurology consulted Physical therapy occupational therapy, aspirin and statin --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; PT OT Supportive care --History of multiple myeloma; consult oncology if needed --Iron deficiency anemia; iron supplements, check for any evidence of bleeding --Hypertension; moderate control, continue current antihypertensives and when necessary medications --Dyslipidemia; continue statin, low cholesterol diet --Type 2 diabetes mellitus; Accu-Chek sliding scale coverage and ADA diet and insulin as needed --Acute kidney injury; secondary to ATN, creatinine trending down Closely monitor, nephrology as needed --DVT prophylaxis; Lovenox History Interval history: She seen and examined medical records reviewed 57-year-old male patient admitted with right-sided weakness/acute CVA Patient not a candidate for TPA or thrombectomy Neuro workup is in progress Patient feels slightly better, not in acute distress Vital signs reviewed Hospitalist Physical - Constitutional Vitals: Temp Pulse Resp BP Pulse Ox 100.7 F H 100 H 18 141/88 95 12/13/17 16:06 12/13/17 15:00 12/13/17 18:58 12/13/17 16:15 12/13/17 17:00 General appearance: Present: no acute distress, well-nourished, obese - EENT Eyes: Present: PERRL, EOM intact - Neck Neck: Present: supple - Respiratory Respiratory effort: normal Respiratory: bilateral: diminished, negative: rales, rhonchi, wheezing - Cardiovascular Rhythm: regular Heart Sounds: Present: S1 & S2 - Extremities Extremities: no ischemia Extremity abnormal: edema - Abdominal General gastrointestinal: soft, non-tender, non-distended, normal bowel sounds - Integumentary Integumentary: Present: clear, warm - Psychiatric Psychiatric: cooperative, other - Neurologic Neurologic: other (old left hemiparesis, new right-sided weakness) Results - Labs CBC & Chem 7: 12/12/17 11:00 12/13/17 13:30 Labs: Laboratory Last Values WBC 11.8 K/mm3 (4.5-11.0) H 12/12/17 11:00 RBC 3.67 M/mm3 (3.65-5.03) 12/12/17 11:00 Hgb 9.6 gm/dl (11.8-15.2) L 12/12/17 11:00 Hct 30.5 % (35.5-45.6) L 12/12/17 11:00 MCV 83 fl (84-94) L 12/12/17 11:00 MCH 26 pg (28-32) L 12/12/17 11:00 MCHC 32 % (32-34) 12/12/17 11:00 RDW 16.8 % (13.2-15.2) H 12/12/17 11:00 Plt Count 233 K/mm3 (140-440) 12/12/17 11:00 Lymph % (Auto) 9.8 % (13.4-35.0) L 12/12/17 11:00 [place] % (Auto) 10.3 % (0.0-7.3) H 12/12/17 11:00 Eos % (Auto) 0.7 % (0.0-4.3) 12/12/17 11:00 Baso % (Auto) 0.4 % (0.0-1.8) 12/12/17 11:00 Lymph # 1.2 K/mm3 (1.2-5.4) 12/12/17 11:00 [place] # 1.2 K/mm3 (0.0-0.8) H 12/12/17 11:00 Eos # 0.1 K/mm3 (0.0-0.4) 12/12/17 11:00 Baso # 0.0 K/mm3 (0.0-0.1) 12/12/17 11:00 Seg Neutrophils % 78.8 % (40.0-70.0) H 12/12/17 11:00 Seg Neutrophils # 9.3 K/mm3 (1.8-7.7) H 12/12/17 11:00 ESR > 140.0 mm/Hr (0-20) 12/12/17 11:40 PT 15.8 Sec. (12.2-14.9) H 12/12/17 11:00 INR 1.19 (0.87-1.13) H 12/12/17 11:00 APTT 41.1 Sec. (24.2-36.6) H 12/12/17 11:00 Thrombin Time 15.3 Sec. (15.1-19.6) 12/12/17 11:00 Sodium 144 mmol/L (137-145) 12/13/17 13:30 Potassium 3.8 mmol/L (3.6-5.0) 12/13/17 13:30 Chloride 105.8 mmol/L (98-107) 12/13/17 13:30 Carbon Dioxide 21 mmol/L (22-30) L 12/13/17 13:30 Anion Gap 21 mmol/L 12/13/17 13:30 BUN 46 mg/dL (9-20) H 12/13/17 13:30 Creatinine 1.5 mg/dL (0.8-1.5) 12/13/17 13:30 Estimated GFR 58 ml/min 12/13/17 13:30 BUN/Creatinine Ratio 31 % 12/13/17 13:30 Glucose 155 mg/dL (75-100) H 12/13/17 13:30 POC Glucose 199 (70-105) H 12/13/17 17:56 Lactic Acid 1.20 mmol/L (0.7-2.0) 12/12/17 12:25 Calcium 9.0 mg/dL (8.4-10.2) 12/13/17 13:30 Magnesium 2.20 mg/dL (1.7-2.3) 12/12/17 11:00 Iron 12 ug/dL (49-181) L 12/12/17 21:56 TIBC 172 mcg/dL (250-450) L 12/12/17 21:56 % Saturation 6.98 % 12/12/17 21:56 Transferrin 148 mg/dl (180-329) L 12/12/17 21:56 Total Bilirubin 0.40 mg/dL (0.1-1.2) 12/12/17 11:00 AST 15 units/L (5-40) 12/12/17 11:00 ALT 11 units/L (7-56) 12/12/17 11:00 Alkaline Phosphatase 110 units/L (35-129) 12/12/17 11:00 Total Creatine Kinase 166 units/L (55-170) 12/12/17 11:00 CK-MB (CK-2) 2.9 ng/mL (0.0-4.0) 12/12/17 11:00 CK-MB (CK-2) Rel Index 1.7 (0-4) 12/12/17 11:00 Troponin T 0.157 ng/mL (0.00-0.029) H* 12/12/17 11:00 C-Reactive Protein 25.50 mg/dL (0.00-1.30) H 12/12/17 11:40 Total Protein 8.4 g/dL (6.3-8.2) H 12/12/17 11:00 Albumin 3.6 g/dL (3.9-5) L 12/12/17 11:00 Albumin/Globulin Ratio 0.8 % 12/12/17 11:00 Triglycerides 180 mg/dL (2-149) H 12/12/17 11:00 Cholesterol 117 mg/dL (50-199) 12/12/17 11:00 LDL Cholesterol Direct 60 mg/dL (50-130) 12/12/17 11:00 HDL Cholesterol 34 mg/dL (40-59) L 12/12/17 11:00 Cholesterol/HDL Ratio 3.44 % 12/12/17 11:00 Urine Color Yellow (Yellow) 12/12/17 13:21 Urine Turbidity Clear (Clear) 12/12/17 13:21 Urine pH 5.0 (5.0-7.0) 12/12/17 13:21 Ur Specific [place] 1.012 (1.003-1.030) 12/12/17 13:21 Urine Protein 30 mg/dl mg/dL (Negative) 12/12/17 13:21 Urine Glucose (UA) Neg mg/dL (Negative) 12/12/17 13:21 Urine Ketones Neg mg/dL (Negative) 12/12/17 13:21 Urine Blood Neg (Negative) 12/12/17 13:21 Urine Nitrite Neg (Negative) 12/12/17 13:21 Urine Bilirubin Neg (Negative) 12/12/17 13:21 Urine Urobilinogen < 2.0 mg/dL (<2.0) 12/12/17 13:21 Ur Leukocyte Esterase Neg (Negative) 12/12/17 13:21 Urine WBC (Auto) < 1.0 /HPF (0.0-6.0) 12/12/17 13:21 Urine RBC (Auto) 1.0 /HPF (0.0-6.0) 12/12/17 13:21 Blood Type O POSITIVE 12/12/17 12:25 Antibody Screen Negative 12/12/17 12:25
[2017-12-13] MEDS ORDERED: LOVENOX SUB-Q SCH (22:00)
--- NOTE | 2017-12-13 22:12 | Consultation ---
History of Present Illness - Reason for Consult Consult date: 12/13/17 acute renal failure - History of Present Illness Mr. Nj is a 57yo with stage III chronic kidney disease (followed by Dr. Barr), MM and hx of CVA who presented to the ED with progressive right side weakness. He denies headache, change in vision, paresthesia. was concerned that patient was having another CVA, so she brought patient to the ED for evaluation. In the ED, patient was febrile tp 101 w/ WBC 11.8. He denies N /V/diarrhea. He denies SOB, cough, dysuria. Past History Past Medical History: hypertension, hyperlipidemia, stroke, other (CKD, multiple myeloma) Past Surgical History: No surgical history Social history: no significant social history Family history: cancer, diabetes, hypertension, stroke Medications and Allergies Allergies Allergy/AdvReac Type Severity Reaction Status Date / Time No Known Allergies Allergy Unverified 01/23/16 10:13 Home Medications Medication Instructions Recorded Confirmed Last Taken Type Labetalol HCl 300 mg PO BID 01/23/16 12/12/17 Unknown History cloNIDine [Catapres] 0.2 mg PO BID 01/23/16 12/12/17 Unknown History NIFEdipine XL [Procardia Xl] 90 mg PO QDAY #30 tablet 09/13/16 12/12/17 Unknown Rx Ergocalciferol [Vitamin D2] 1 cap PO QWEEK 12/12/17 12/12/17 Unknown History Furosemide [Lasix TAB] 40 mg PO QDAY 12/12/17 12/12/17 Unknown History Insulin Glargine,Hum.rec.anlog 15 units SUB-Q QAM 12/12/17 12/12/17 12/12/17 History [Basaglar Kwikpen U-100] Insulin Glargine,Hum.rec.anlog 30 units SUB-Q QPM 12/12/17 12/12/17 Unknown History [Basaglar Kwikpen U-100] Lactulose [Constulose] 10 gm PO DAILY PRN 12/12/17 12/12/17 Unknown History Losartan [Cozaar] 100 mg PO QDAY 12/12/17 12/12/17 Unknown History Metformin HCl [Glucophage] 850 mg PO QAM 12/12/17 12/12/17 Unknown History Multivitamin Tab [Multiple Vitamin 1 each PO QDAY 12/12/17 12/12/17 Unknown History TAB (Theragran)] Potassium Chloride [K-Tab ER] 20 meq PO QDAY 12/12/17 12/12/17 Unknown History Pravastatin [Pravachol] 20 mg PO DAILY 12/12/17 12/12/17 Unknown History glipiZIDE [Glipizide] 10 mg PO QDAY 12/12/17 12/12/17 Unknown History oxyCODONE /ACETAMINOPHEN [Percocet 1 tab PO Q8H PRN 12/12/17 12/12/17 Unknown History 5/325] Active Meds: Active Medications Acetaminophen (Tylenol) 650 mg PO Q6H PRN PRN Reason: Pain, Mild (1-3) Last Admin: 12/13/17 16:18 Dose: 650 mg Atorvastatin Calcium (Lipitor) 40 mg PO QHS [facility] Last Admin: 12/13/17 21:47 Dose: 40 mg Clonidine HCl (Catapres) 0.2 mg PO BID [facility] Last Admin: 12/13/17 21:47 Dose: 0.2 mg Enoxaparin Sodium (Lovenox) 40 mg SUB-Q QDAY@1000 [facility] Last Admin: 12/13/17 16:14 Dose: 40 mg Insulin Human Lispro (Humalog) 0 unit SUB-Q [facility]; Protocol Last Admin: 12/13/17 18:04 Dose: 2 unit Labetalol HCl (Normodyne) 300 mg PO BID [facility] Last Admin: 12/13/17 21:46 Dose: 300 mg Losartan Potassium (Cozaar) 100 mg PO QDAY [facility] Last Admin: 12/13/17 16:14 Dose: 100 mg Nifedipine (Procardia Xl) 90 mg PO QDAY [facility] Last Admin: 12/13/17 16:14 Dose: 90 mg Oxycodone/Acetaminophen (Percocet 5/325) 1 tab PO Q8H PRN PRN Reason: Pain, Moderate (4-6) Last Admin: 12/13/17 18:10 Dose: 1 tab Pravastatin Sodium (Pravachol) 20 mg PO DAILY [facility] Last Admin: 12/13/17 16:15 Dose: 20 mg Sodium Chloride (Sodium Chloride Flush Syringe 10 Ml) 10 ml IV PRN PRN PRN Reason: LINE FLUSH Review of Systems All systems: negative Exam - Vital Signs Vital signs: Vital Signs Pulse 99 H 12/12/17 09:46 - General Appearance General appearance: well-developed, well-nourished EENT: ATNC Respiratory: Decreased Breath Sounds (at bases) Heart: regular, S1S2 Gastrointestinal: Present: normal. Absent: tenderness, distended Integumentary: no rash, warm and dry Musculoskeletal: Present: other (no edema) Psychiatric: cooperative Results - Lab Results 12/12/17 11:00 12/13/17 13:30 Most recent lab results Calcium 9.0 mg/dL (8.4-10.2) 12/13/17 13:30 Magnesium 2.20 mg/dL (1.7-2.3) 12/12/17 11:00 Assessment and Plan Impression: * Stage III chronic kidney disease * Right side weakness - r/o CVA * Fever * MM * Anemia secondary to MM vs CKD * Hypertension * Type II DM Plan: * Renal function is stable. Continue current management * Neuro following * Empiric abx per primary team * Await blood/urine cx * Continue antiHTN medications * Avoid nephrotoxins * Daily labs
[2017-12-14 08:03] LABS: Calcium 9.6 mg/dL (8.4-10.2)
[2017-12-14] MEDS: PROCARDIA XL PO SCH (09:13)
[2017-12-14] MEDS: COZAAR PO SCH (09:13)
[2017-12-14] MEDS: PRAVACHOL PO SCH (09:14)
[2017-12-14] MEDS: NORMODYNE PO SCH ×2 (09:14→22:44)
[2017-12-14] MEDS: LOVENOX SUB-Q SCH (09:15)
[2017-12-14] MEDS: HumaLOG SUB-Q SCH ×4 (09:16→22:43)
[2017-12-14] MEDS: CATAPRES PO SCH ×2 (09:37→22:43)
--- NOTE | 2017-12-14 10:33 | Progress Note ---
Assessment and Plan Impression: * Stage III/IV chronic kidney disease --SCr 2.6mg/dL in October 2017 * Right side weakness - r/o CVA * Fever - defervescing * MM * Anemia secondary to MM vs CKD * Hypertension * Type II DM * Hx of CVA Plan: * Renal function is stable. Continue current management * Neuro following * Empiric abx per primary team * Blood/urine cx - NGTD presently * Continue antiHTN medications * Avoid nephrotoxins * Daily labs Subjective Date of service: 12/14/17 Interval history: Patient reports that he feels better today Objective - Vital Signs Vital signs: Vital Signs - 12hr 12/14/17 12/14/17 12/14/17 07:53 09:13 09:14 Temperature 99.2 F Pulse Rate 97 H Respiratory 19 Rate Blood Pressure 131/83 131/83 131/83 O2 Sat by Pulse 94 Oximetry - General Appearance General appearance: well-developed, well-nourished EENT: ATNC Respiratory: Present: Clear to Ascultation Cardiology: regular, S1S2 Gastrointestinal: normal, no tenderness, no distended Integumentary: no rash, warm and dry Musculoskeletal: other (no edema) Psychiatric: cooperative - Lab 12/12/17 11:00 12/14/17 07:13 Most recent lab results Calcium 9.6 mg/dL (8.4-10.2) 12/14/17 07:13 Magnesium 2.20 mg/dL (1.7-2.3) 12/12/17 11:00
--- NOTE | 2017-12-14 11:50 | Progress Note ---
Assessment and Plan 1. Right side weakness and pains since Monday, unclear etiologies. 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 Brain MRI without contrast, no acute. Pending carotid Doppler. 2. Cervical myeloma as differential. Cervical spinal MRI without contrast. 3. Multiple myeloma. Oncology. 4. Echo, EF 55-60%, no thrombus, emboli or vegetation. Pending carotid Doppler. 5. DM. Medicine. 6. HTN. Medicine. 7. Dyslipidemia. Statin. 8. Treat risk factors of CVA. Suggest Aspirin if no contraindication. His PCP stopped him Aspirin for a year. His brain MRI without contrast reported, no specific changes, prior trauma, cerebral amyloid, chronic hematoma or calcification. However, he has been on Aspirin since CVA. 9. OT/PT, rehab and speech. 10. Renal failure. Nephrology. 11. Plan discussed with him, his , sister and his nurse. 12. If D/C, F/U with neurology in 4-6 weeks. Subjective Date of service: 12/14/17 Principal diagnosis: Right side weakness. Interval history: Stable and improved. Objective - Vital Sign Vital Signs - 12hr 12/14/17 12/14/17 12/14/17 07:53 09:13 09:14 Temperature 99.2 F Pulse Rate 97 H Respiratory 19 Rate Blood Pressure 131/83 131/83 131/83 O2 Sat by Pulse 94 Oximetry - General Apperance Constitutional: comfortable - EENT EENT: PERRL, mucous membranes moist - Respiratory Respiratory: lungs clear, normal breath sounds - Cardiovascular Cardiovascular: regular rate, no murmurs Extremities: no peripheral edema bilat, no clubbing, cyanosis - Gastrointestinal Gastrointestinal: soft, non-tender - Integumentary Integumentary: normal - Neurologic Cranial nerve examination: PERRL, EOMI, V1/V2/V3 grossly intact, intact Speech examination: intact Detailed motor examination: other (Right lower 3, right upper 2, left 1/5 with muscle tone increased and contracture in upper and lower,) Detailed sensory examination: other (left side decreased.) - Laboratory Findings CBC and BMP: 12/12/17 11:00 12/14/17 07:13 Abnormal Lab Findings: Abnormal Labs 12/12/17 12/12/17 12/12/17 11:00 11:00 11:00 WBC 11.8 H Hgb 9.6 L Hct 30.5 L MCV 83 L MCH 26 L RDW 16.8 H Lymph % (Auto) 9.8 L [place] % (Auto) 10.3 H [place] # 1.2 H Seg Neutrophils % 78.8 H Seg Neutrophils # 9.3 H PT 15.8 H INR 1.19 H APTT 41.1 H Carbon Dioxide 21 L BUN 69 H Creatinine 2.0 H Glucose 139 H POC Glucose Iron TIBC Transferrin Troponin T 0.157 H* C-Reactive Protein Total Protein 8.4 H Albumin 3.6 L Triglycerides 180 H HDL Cholesterol 34 L 12/12/17 12/12/17 12/12/17 11:40 21:31 21:56 WBC Hgb Hct MCV MCH RDW Lymph % (Auto) [place] % (Auto) [place] # Seg Neutrophils % Seg Neutrophils # PT INR APTT Carbon Dioxide BUN Creatinine Glucose POC Glucose 181 H Iron 12 L TIBC 172 L Transferrin 148 L Troponin T C-Reactive Protein 25.50 H Total Protein Albumin Triglycerides HDL Cholesterol 12/12/17 12/13/17 12/13/17 23:57 05:51 13:30 WBC Hgb Hct MCV MCH RDW Lymph % (Auto) [place] % (Auto) [place] # Seg Neutrophils % Seg Neutrophils # PT INR APTT Carbon Dioxide 21 L BUN 46 H Creatinine Glucose 155 H POC Glucose 165 H 140 H Iron TIBC Transferrin Troponin T C-Reactive Protein Total Protein Albumin Triglycerides HDL Cholesterol 12/13/17 12/13/17 12/14/17 17:56 22:54 06:17 WBC Hgb Hct MCV MCH RDW Lymph % (Auto) [place] % (Auto) [place] # Seg Neutrophils % Seg Neutrophils # PT INR APTT Carbon Dioxide BUN Creatinine Glucose POC Glucose 199 H 159 H 187 H Iron TIBC Transferrin Troponin T C-Reactive Protein Total Protein Albumin Triglycerides HDL Cholesterol 12/14/17 07:13 WBC Hgb Hct MCV MCH RDW Lymph % (Auto) [place] % (Auto) [place] # Seg Neutrophils % Seg Neutrophils # PT INR APTT Carbon Dioxide 20 L BUN 47 H Creatinine 1.8 H Glucose 170 H POC Glucose Iron TIBC Transferrin Troponin T C-Reactive Protein Total Protein Albumin Triglycerides HDL Cholesterol
[2017-12-14] MEDS ORDERED: CATAPRES PO SCH (14:00)
[2017-12-14] MEDS: TYLENOL PO PRN (18:23)
--- NOTE | 2017-12-14 20:10 | Progress Note ---
Assessment and Plan Assessment and plan: --Acute CVA; right-sided weakness Patient not a candidate for TPA or thrombectomy Neuro workup is in progress, neurology consulted Physical therapy occupational therapy, aspirin and statin --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; PT OT Supportive care --History of multiple myeloma; consult oncology if needed --Iron deficiency anemia; iron supplements, check for any evidence of bleeding --Hypertension; moderate control, continue current antihypertensives and when necessary medications --Dyslipidemia; continue statin, low cholesterol diet --Type 2 diabetes mellitus; Accu-Chek sliding scale coverage and ADA diet and insulin as needed --Acute kidney injury; secondary to ATN, creatinine trending down Closely monitor, nephrology as needed --DVT prophylaxis; Lovenox History Interval history: Patient seen and examined medical records reviewed Patient feels slightly better no new complaints Receiving physical therapy No new events reported Hospitalist Physical - Constitutional Vitals: Temp Pulse Resp BP Pulse Ox 102.7 F H 103 H 20 125/84 93 12/14/17 16:38 12/14/17 16:38 12/14/17 16:38 12/14/17 16:38 12/14/17 16:38 General appearance: Present: no acute distress, well-nourished, obese - EENT Eyes: Present: PERRL, EOM intact - Neck Neck: Present: supple, normal ROM - Respiratory Respiratory effort: normal Respiratory: bilateral: diminished, negative: rales, rhonchi, wheezing - Cardiovascular Rhythm: regular Heart Sounds: Present: S1 & S2 - Extremities Extremities: no ischemia, No edema Extremity abnormal: edema - Abdominal General gastrointestinal: soft, non-tender, non-distended, normal bowel sounds - Integumentary Integumentary: Present: clear, warm - Psychiatric Psychiatric: appropriate mood/affect, cooperative - Neurologic Neurologic: other (residual weakness) Results - Labs CBC & Chem 7: 12/12/17 11:00 12/14/17 07:13 Labs: Laboratory Last Values WBC 11.8 K/mm3 (4.5-11.0) H 12/12/17 11:00 RBC 3.67 M/mm3 (3.65-5.03) 12/12/17 11:00 Hgb 9.6 gm/dl (11.8-15.2) L 12/12/17 11:00 Hct 30.5 % (35.5-45.6) L 12/12/17 11:00 MCV 83 fl (84-94) L 12/12/17 11:00 MCH 26 pg (28-32) L 12/12/17 11:00 MCHC 32 % (32-34) 12/12/17 11:00 RDW 16.8 % (13.2-15.2) H 12/12/17 11:00 Plt Count 233 K/mm3 (140-440) 12/12/17 11:00 Lymph % (Auto) 9.8 % (13.4-35.0) L 12/12/17 11:00 [place] % (Auto) 10.3 % (0.0-7.3) H 12/12/17 11:00 Eos % (Auto) 0.7 % (0.0-4.3) 12/12/17 11:00 Baso % (Auto) 0.4 % (0.0-1.8) 12/12/17 11:00 Lymph # 1.2 K/mm3 (1.2-5.4) 12/12/17 11:00 [place] # 1.2 K/mm3 (0.0-0.8) H 12/12/17 11:00 Eos # 0.1 K/mm3 (0.0-0.4) 12/12/17 11:00 Baso # 0.0 K/mm3 (0.0-0.1) 12/12/17 11:00 Seg Neutrophils % 78.8 % (40.0-70.0) H 12/12/17 11:00 Seg Neutrophils # 9.3 K/mm3 (1.8-7.7) H 12/12/17 11:00 ESR > 140.0 mm/Hr (0-20) 12/12/17 11:40 PT 15.8 Sec. (12.2-14.9) H 12/12/17 11:00 INR 1.19 (0.87-1.13) H 12/12/17 11:00 APTT 41.1 Sec. (24.2-36.6) H 12/12/17 11:00 Thrombin Time 15.3 Sec. (15.1-19.6) 12/12/17 11:00 Sodium 143 mmol/L (137-145) 12/14/17 07:13 Potassium 3.8 mmol/L (3.6-5.0) 12/14/17 07:13 Chloride 104.6 mmol/L (98-107) 12/14/17 07:13 Carbon Dioxide 20 mmol/L (22-30) L 12/14/17 07:13 Anion Gap 22 mmol/L 12/14/17 07:13 BUN 47 mg/dL (9-20) H 12/14/17 07:13 Creatinine 1.8 mg/dL (0.8-1.5) H 12/14/17 07:13 Estimated GFR 47 ml/min 12/14/17 07:13 BUN/Creatinine Ratio 26 % 12/14/17 07:13 Glucose 170 mg/dL (75-100) H 12/14/17 07:13 POC Glucose 234 (70-105) H 12/14/17 17:55 Lactic Acid 1.20 mmol/L (0.7-2.0) 12/12/17 12:25 Calcium 9.6 mg/dL (8.4-10.2) 12/14/17 07:13 Magnesium 2.20 mg/dL (1.7-2.3) 12/12/17 11:00 Iron 12 ug/dL (49-181) L 12/12/17 21:56 TIBC 172 mcg/dL (250-450) L 12/12/17 21:56 % Saturation 6.98 % 12/12/17 21:56 Transferrin 148 mg/dl (180-329) L 12/12/17 21:56 Total Bilirubin 0.40 mg/dL (0.1-1.2) 12/12/17 11:00 AST 15 units/L (5-40) 12/12/17 11:00 ALT 11 units/L (7-56) 12/12/17 11:00 Alkaline Phosphatase 110 units/L (35-129) 12/12/17 11:00 Total Creatine Kinase 166 units/L (55-170) 12/12/17 11:00 CK-MB (CK-2) 2.9 ng/mL (0.0-4.0) 12/12/17 11:00 CK-MB (CK-2) Rel Index 1.7 (0-4) 12/12/17 11:00 Troponin T 0.157 ng/mL (0.00-0.029) H* 12/12/17 11:00 C-Reactive Protein 25.50 mg/dL (0.00-1.30) H 12/12/17 11:40 Total Protein 8.4 g/dL (6.3-8.2) H 12/12/17 11:00 Albumin 3.6 g/dL (3.9-5) L 12/12/17 11:00 Albumin/Globulin Ratio 0.8 % 12/12/17 11:00 Triglycerides 180 mg/dL (2-149) H 12/12/17 11:00 Cholesterol 117 mg/dL (50-199) 12/12/17 11:00 LDL Cholesterol Direct 60 mg/dL (50-130) 12/12/17 11:00 HDL Cholesterol 34 mg/dL (40-59) L 12/12/17 11:00 Cholesterol/HDL Ratio 3.44 % 12/12/17 11:00 Urine Color Yellow (Yellow) 12/12/17 13:21 Urine Turbidity Clear (Clear) 12/12/17 13:21 Urine pH 5.0 (5.0-7.0) 12/12/17 13:21 Ur Specific [place] 1.012 (1.003-1.030) 12/12/17 13:21 Urine Protein 30 mg/dl mg/dL (Negative) 12/12/17 13:21 Urine Glucose (UA) Neg mg/dL (Negative) 12/12/17 13:21 Urine Ketones Neg mg/dL (Negative) 12/12/17 13:21 Urine Blood Neg (Negative) 12/12/17 13:21 Urine Nitrite Neg (Negative) 12/12/17 13:21 Urine Bilirubin Neg (Negative) 12/12/17 13:21 Urine Urobilinogen < 2.0 mg/dL (<2.0) 12/12/17 13:21 Ur Leukocyte Esterase Neg (Negative) 12/12/17 13:21 Urine WBC (Auto) < 1.0 /HPF (0.0-6.0) 12/12/17 13:21 Urine RBC (Auto) 1.0 /HPF (0.0-6.0) 12/12/17 13:21 Blood Type O POSITIVE 12/12/17 12:25 Antibody Screen Negative 12/12/17 12:25
--- NOTE | 2017-12-14 21:17 | XRay Report ---
FINAL REPORT PROCEDURE: XR CHEST 1V AP TECHNIQUE: Chest radiograph anteroposterior view. CPT 28690 HISTORY: fever/sepsis COMPARISON: No prior studies are available for comparison. FINDINGS: Heart: Mild enlargement. Mediastinum/Vessels: Aorta is tortuous. Lungs/Pleural space: Normal. Bony thorax: No acute osseous abnormality. Degenerative change. Life support devices: . monitoring devices.. IMPRESSION: No acute cardiopulmonary abnormality.
[2017-12-15 06:11] LABS: Calcium 9.1 mg/dL (8.4-10.2)
[2017-12-15] MEDS: PROCARDIA XL PO SCH (10:00)
[2017-12-15] MEDS: CATAPRES PO SCH ×2 (10:00→22:10)
[2017-12-15] MEDS: NORMODYNE PO SCH ×2 (10:00→22:09)
--- NOTE | 2017-12-15 11:17 | Progress Note ---
Assessment and Plan Assessment and plan: --Acute CVA; right-sided weakness Patient not a candidate for TPA or thrombectomy Neuro workup reviewed, neurology evaluation noted and appreciated Physical therapy occupational therapy, aspirin and statin --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; PT OT Supportive care --History of multiple myeloma; consult oncology if needed --Iron deficiency anemia; iron supplements, check for any evidence of bleeding --Hypertension; moderate control, continue current antihypertensives and when necessary medications --Dyslipidemia; continue statin, low cholesterol diet --Type 2 diabetes mellitus; Accu-Chek sliding scale coverage and ADA diet and insulin as needed --Acute kidney injury; secondary to ATN, creatinine trending down Closely monitor, nephrology as needed --DVT prophylaxis; Lovenox History Interval history: Patient seen and examined medical records reviewed No new events reported by the nursing staff Patient continues to have bilateral weakness Receiving physical therapy occupational therapy Awaiting SNF placement Patient is comfortable bike signs noted Hospitalist Physical - Constitutional Vitals: Temp Pulse Resp BP Pulse Ox 100.0 F H 91 H 19 89/60 95 12/15/17 08:18 12/15/17 08:18 12/15/17 08:18 12/15/17 08:18 12/15/17 08:18 General appearance: Present: no acute distress, well-nourished, obese - EENT Eyes: Present: PERRL, EOM intact - Neck Neck: Present: supple, normal ROM - Respiratory Respiratory effort: normal Respiratory: bilateral: diminished, negative: rales, rhonchi, wheezing - Cardiovascular Rhythm: regular Heart Sounds: Present: S1 & S2 - Extremities Extremities: no ischemia Extremity abnormal: edema - Abdominal General gastrointestinal: soft, non-tender, non-distended, normal bowel sounds - Integumentary Integumentary: Present: clear, warm - Psychiatric Psychiatric: appropriate mood/affect, cooperative - Neurologic Neurologic: other (recurrent CVA with residual weakness) Results - Labs CBC & Chem 7: 12/12/17 11:00 12/16/17 06:56 Labs: Laboratory Last Values WBC 11.8 K/mm3 (4.5-11.0) H 12/12/17 11:00 RBC 3.67 M/mm3 (3.65-5.03) 12/12/17 11:00 Hgb 9.6 gm/dl (11.8-15.2) L 12/12/17 11:00 Hct 30.5 % (35.5-45.6) L 12/12/17 11:00 MCV 83 fl (84-94) L 12/12/17 11:00 MCH 26 pg (28-32) L 12/12/17 11:00 MCHC 32 % (32-34) 12/12/17 11:00 RDW 16.8 % (13.2-15.2) H 12/12/17 11:00 Plt Count 233 K/mm3 (140-440) 12/12/17 11:00 Lymph % (Auto) 9.8 % (13.4-35.0) L 12/12/17 11:00 [place] % (Auto) 10.3 % (0.0-7.3) H 12/12/17 11:00 Eos % (Auto) 0.7 % (0.0-4.3) 12/12/17 11:00 Baso % (Auto) 0.4 % (0.0-1.8) 12/12/17 11:00 Lymph # 1.2 K/mm3 (1.2-5.4) 12/12/17 11:00 [place] # 1.2 K/mm3 (0.0-0.8) H 12/12/17 11:00 Eos # 0.1 K/mm3 (0.0-0.4) 12/12/17 11:00 Baso # 0.0 K/mm3 (0.0-0.1) 12/12/17 11:00 Seg Neutrophils % 78.8 % (40.0-70.0) H 12/12/17 11:00 Seg Neutrophils # 9.3 K/mm3 (1.8-7.7) H 12/12/17 11:00 ESR > 140.0 mm/Hr (0-20) 12/12/17 11:40 PT 15.8 Sec. (12.2-14.9) H 12/12/17 11:00 INR 1.19 (0.87-1.13) H 12/12/17 11:00 APTT 41.1 Sec. (24.2-36.6) H 12/12/17 11:00 Thrombin Time 15.3 Sec. (15.1-19.6) 12/12/17 11:00 Sodium 139 mmol/L (137-145) 12/15/17 04:56 Potassium 3.8 mmol/L (3.6-5.0) 12/15/17 04:56 Chloride 102.6 mmol/L (98-107) 12/15/17 04:56 Carbon Dioxide 20 mmol/L (22-30) L 12/15/17 04:56 Anion Gap 20 mmol/L 12/15/17 04:56 BUN 55 mg/dL (9-20) H 12/15/17 04:56 Creatinine 2.0 mg/dL (0.8-1.5) H 12/15/17 04:56 Estimated GFR 42 ml/min 12/15/17 04:56 BUN/Creatinine Ratio 28 % 12/15/17 04:56 Glucose 162 mg/dL (75-100) H 12/15/17 04:56 POC Glucose 183 (70-105) H 12/15/17 11:01 Lactic Acid 1.20 mmol/L (0.7-2.0) 12/12/17 12:25 Calcium 9.1 mg/dL (8.4-10.2) 12/15/17 04:56 Magnesium 2.20 mg/dL (1.7-2.3) 12/12/17 11:00 Iron 12 ug/dL (49-181) L 12/12/17 21:56 TIBC 172 mcg/dL (250-450) L 12/12/17 21:56 % Saturation 6.98 % 12/12/17 21:56 Transferrin 148 mg/dl (180-329) L 12/12/17 21:56 Total Bilirubin 0.40 mg/dL (0.1-1.2) 12/12/17 11:00 AST 15 units/L (5-40) 12/12/17 11:00 ALT 11 units/L (7-56) 12/12/17 11:00 Alkaline Phosphatase 110 units/L (35-129) 12/12/17 11:00 Total Creatine Kinase 166 units/L (55-170) 12/12/17 11:00 CK-MB (CK-2) 2.9 ng/mL (0.0-4.0) 12/12/17 11:00 CK-MB (CK-2) Rel Index 1.7 (0-4) 12/12/17 11:00 Troponin T 0.157 ng/mL (0.00-0.029) H* 12/12/17 11:00 C-Reactive Protein 25.50 mg/dL (0.00-1.30) H 12/12/17 11:40 Total Protein 8.4 g/dL (6.3-8.2) H 12/12/17 11:00 Albumin 3.6 g/dL (3.9-5) L 12/12/17 11:00 Albumin/Globulin Ratio 0.8 % 12/12/17 11:00 Triglycerides 180 mg/dL (2-149) H 12/12/17 11:00 Cholesterol 117 mg/dL (50-199) 12/12/17 11:00 LDL Cholesterol Direct 60 mg/dL (50-130) 12/12/17 11:00 HDL Cholesterol 34 mg/dL (40-59) L 12/12/17 11:00 Cholesterol/HDL Ratio 3.44 % 12/12/17 11:00 Urine Color Yellow (Yellow) 12/12/17 13:21 Urine Turbidity Clear (Clear) 12/12/17 13:21 Urine pH 5.0 (5.0-7.0) 12/12/17 13:21 Ur Specific [place] 1.012 (1.003-1.030) 12/12/17 13:21 Urine Protein 30 mg/dl mg/dL (Negative) 12/12/17 13:21 Urine Glucose (UA) Neg mg/dL (Negative) 12/12/17 13:21 Urine Ketones Neg mg/dL (Negative) 12/12/17 13:21 Urine Blood Neg (Negative) 12/12/17 13:21 Urine Nitrite Neg (Negative) 12/12/17 13:21 Urine Bilirubin Neg (Negative) 12/12/17 13:21 Urine Urobilinogen < 2.0 mg/dL (<2.0) 12/12/17 13:21 Ur Leukocyte Esterase Neg (Negative) 12/12/17 13:21 Urine WBC (Auto) < 1.0 /HPF (0.0-6.0) 12/12/17 13:21 Urine RBC (Auto) 1.0 /HPF (0.0-6.0) 12/12/17 13:21 Blood Type O POSITIVE 12/12/17 12:25 Antibody Screen Negative 12/12/17 12:25
--- NOTE | 2017-12-15 12:11 | Progress Note ---
Assessment and Plan Impression: * Stage III/IV chronic kidney disease --SCr 2.6mg/dL in October 2017 * Right side weakness - r/o CVA * Fever - defervescing * MM * Anemia secondary to MM vs CKD * Hypertension * Type II DM * Hx of CVA Plan: * Renal function is stable. * stop arb, bp are too low in acute CVA * Neuro following * Empiric abx per primary team * Blood/urine cx - NGTD presently * Continue antiHTN medications * Avoid nephrotoxins * Daily labs Subjective Date of service: 12/15/17 Principal diagnosis: Right side weakness. Interval history: chart reviewed, no acute events Objective - Exam Narrative Exam: General appearance: well-developed, well-nourished EENT: ATNC Respiratory: Present: Clear to Ascultation Cardiology: regular, S1S2 Gastrointestinal: normal, no tenderness, no distended Integumentary: no rash, warm and dry Musculoskeletal: other (no edema) Psychiatric: cooperative - Vital Signs Vital signs: Vital Signs - 12hr 12/15/17 08:18 Temperature 100.0 F H Pulse Rate 91 H Respiratory 19 Rate Blood Pressure 89/60 O2 Sat by Pulse 95 Oximetry - Lab 12/12/17 11:00 12/15/17 04:56 Most recent lab results Calcium 9.1 mg/dL (8.4-10.2) 12/15/17 04:56 Magnesium 2.20 mg/dL (1.7-2.3) 12/12/17 11:00
[2017-12-15] MEDS: LOVENOX SUB-Q SCH (12:23)
[2017-12-15] MEDS: PRAVACHOL PO SCH (12:24)
[2017-12-15] MEDS: HumaLOG SUB-Q SCH ×2 (12:24→19:11)
--- NOTE | 2017-12-15 12:34 | Progress Note ---
Assessment and Plan 1. Right side weakness and pains since Monday, unclear etiologies. 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 Brain MRI without contrast, no acute. Pending carotid Doppler. 2. Cervical myeloma as differential. Pending cervical spinal MRI without contrast. May need thoracic and lumbar MRI without contrast for possible multiple myeloma spinal mathematics. 3. Multiple myeloma. Oncology. 4. Echo, EF 55-60%, no thrombus, emboli or vegetation. Pending carotid Doppler. 5. DM. Medicine. 6. HTN. Medicine. 7. Dyslipidemia. Statin. 8. Treat risk factors of CVA. Suggest Aspirin if no contraindication. His PCP stopped him Aspirin for a year. His brain MRI without contrast reported, no specific changes, prior trauma, cerebral amyloid, chronic hematoma or calcification. However, he has been on Aspirin since CVA. 9. OT/PT, rehab and speech. 10. Renal failure. Nephrology. 11. Plan discussed with him, his , sister and his nurse. 12. Weekend neurology needs to follow up. Please call. 13. If D/C, F/U with neurology in 4-6 weeks. Subjective Date of service: 12/15/17 Principal diagnosis: Right side weakness. Interval history: Stable and improved. Objective - Vital Sign Vital Signs - 12hr 12/15/17 08:18 Temperature 100.0 F H Pulse Rate 91 H Respiratory 19 Rate Blood Pressure 89/60 O2 Sat by Pulse 95 Oximetry - Respiratory Respiratory: lungs clear, normal breath sounds - Cardiovascular Cardiovascular: regular rate, no murmurs - Gastrointestinal Gastrointestinal: soft, non-tender - Neurologic Cranial nerve examination: PERRL, EOMI, V1/V2/V3 grossly intact, intact Speech examination: intact Detailed motor examination: other (Left 1/5, increased tone and contractures. Right upper 2/5, lower 3/5.) Reflexes: 0: ankle, bicep, knee, tricep - Psychiatric Psychiatric: mood/affect appropriate - Laboratory Findings CBC and BMP: 12/12/17 11:00 12/15/17 04:56 Abnormal Lab Findings: Abnormal Labs 12/12/17 12/12/17 12/12/17 11:00 11:00 11:00 WBC 11.8 H Hgb 9.6 L Hct 30.5 L MCV 83 L MCH 26 L RDW 16.8 H Lymph % (Auto) 9.8 L [place] % (Auto) 10.3 H [place] # 1.2 H Seg Neutrophils % 78.8 H Seg Neutrophils # 9.3 H PT 15.8 H INR 1.19 H APTT 41.1 H Carbon Dioxide 21 L BUN 69 H Creatinine 2.0 H Glucose 139 H POC Glucose Iron TIBC Transferrin Troponin T 0.157 H* C-Reactive Protein Total Protein 8.4 H Albumin 3.6 L Triglycerides 180 H HDL Cholesterol 34 L 12/12/17 12/12/17 12/12/17 11:40 21:31 21:56 WBC Hgb Hct MCV MCH RDW Lymph % (Auto) [place] % (Auto) [place] # Seg Neutrophils % Seg Neutrophils # PT INR APTT Carbon Dioxide BUN Creatinine Glucose POC Glucose 181 H Iron 12 L TIBC 172 L Transferrin 148 L Troponin T C-Reactive Protein 25.50 H Total Protein Albumin Triglycerides HDL Cholesterol 12/12/17 12/13/17 12/13/17 23:57 05:51 13:30 WBC Hgb Hct MCV MCH RDW Lymph % (Auto) [place] % (Auto) [place] # Seg Neutrophils % Seg Neutrophils # PT INR APTT Carbon Dioxide 21 L BUN 46 H Creatinine Glucose 155 H POC Glucose 165 H 140 H Iron TIBC Transferrin Troponin T C-Reactive Protein Total Protein Albumin Triglycerides HDL Cholesterol 12/13/17 12/13/17 12/14/17 17:56 22:54 06:17 WBC Hgb Hct MCV MCH RDW Lymph % (Auto) [place] % (Auto) [place] # Seg Neutrophils % Seg Neutrophils # PT INR APTT Carbon Dioxide BUN Creatinine Glucose POC Glucose 199 H 159 H 187 H Iron TIBC Transferrin Troponin T C-Reactive Protein Total Protein Albumin Triglycerides HDL Cholesterol 12/14/17 12/14/17 12/14/17 07:13 11:52 17:55 WBC Hgb Hct MCV MCH RDW Lymph % (Auto) [place] % (Auto) [place] # Seg Neutrophils % Seg Neutrophils # PT INR APTT Carbon Dioxide 20 L BUN 47 H Creatinine 1.8 H Glucose 170 H POC Glucose 194 H 234 H Iron TIBC Transferrin Troponin T C-Reactive Protein Total Protein Albumin Triglycerides HDL Cholesterol 12/14/17 12/15/17 12/15/17 22:32 04:56 11:01 WBC Hgb Hct MCV MCH RDW Lymph % (Auto) [place] % (Auto) [place] # Seg Neutrophils % Seg Neutrophils # PT INR APTT Carbon Dioxide 20 L BUN 55 H Creatinine 2.0 H Glucose 162 H POC Glucose 202 H 183 H Iron TIBC Transferrin Troponin T C-Reactive Protein Total Protein Albumin Triglycerides HDL Cholesterol
--- NOTE | 2017-12-15 21:40 | Magnetic Resonance Report ---
FINAL REPORT EXAM: MR CERVICAL SPINE WO CON HISTORY: RIGHT SIDE WEAKNESS. TECHNIQUE: Multiplanar MRI of cervical spine. No contrast administered. PRIORS: None. FINDINGS: Diffuse disc desiccation. Mild disc space narrowing in the C6-T1 levels. Variable osteophytic endplate spurring scattered through majority of cervical spine. No loss of height or gross malalignment of cervical vertebral bodies. Cervical spinal cord has normal contour and signal intensity. No cerebellar tonsillar herniation. C2-C3: No apparent disc bulge or protrusion. No significant central spinal stenosis or neural foraminal narrowing. C3-C4: Very small disc-osteophyte complex. No significant central spinal stenosis or neural foraminal narrowing. C4-C5: Small, annular bulge without posterior disc protrusion. No significant central spinal stenosis or neural foraminal narrowing. C5-C6: No apparent disc bulge or protrusion. No significant central spinal stenosis or neural foraminal narrowing. C6-C7: Small disc-osteophyte complex. No significant central spinal stenosis. Bilateral uncovertebral arthrosis, left greater than right. Mild right and moderate-marked left neural foraminal narrowing. C7-T1: Small disc-osteophyte complex. No significant central spinal stenosis or right neural foraminal narrowing. Left uncovertebral arthrosis. Mild-moderate left neural foraminal narrowing. IMPRESSION: 1. Degenerative disc disease and spondylosis. Please see above for details at individual levels. 2. No significant central spinal canal compromise. 3. Considerable left C6-7 neural foraminal stenosis.
[2017-12-16] MEDS: HumaLOG SUB-Q SCH ×7 (10:29→22:50)
[2017-12-16] MEDS: NORMODYNE PO SCH ×2 (10:31→22:28)
[2017-12-16] MEDS: PRAVACHOL PO SCH (10:32)
[2017-12-16] MEDS: CATAPRES PO SCH ×2 (10:32→22:29)
[2017-12-16] MEDS: LOVENOX SUB-Q SCH (10:32)
[2017-12-16] MEDS: PROCARDIA XL PO SCH (10:32)
--- NOTE | 2017-12-16 11:26 | Progress Note ---
Assessment and Plan Impression: * Stage III/IV chronic kidney disease --SCr 2.6mg/dL in October 2017 * Right side weakness - r/o CVA * Fever - defervescing * MM * Anemia secondary to MM vs CKD * Hypertension * Type II DM * Hx of CVA Plan: * Renal function is better today * stopped arb * Neuro following * Empiric abx per primary team * Blood/urine cx - NGTD presently * Continue antiHTN medications * Avoid nephrotoxins * Daily labs * ok to dc home from renal standpoin Subjective Date of service: 12/16/17 Principal diagnosis: Right side weakness. Interval history: chart reviewed, no acute events Objective - Exam Narrative Exam: General appearance: well-developed, well-nourished EENT: ATNC Respiratory: Present: Clear to Ascultation Cardiology: regular, S1S2 Gastrointestinal: normal, no tenderness, no distended Integumentary: no rash, warm and dry Musculoskeletal: other (no edema) Psychiatric: cooperative - Vital Signs Vital signs: Vital Signs - 12hr 12/16/17 12/16/17 12/16/17 04:30 08:10 10:31 Temperature 100.2 F H 99.3 F Pulse Rate 83 78 Respiratory 20 20 Rate Blood Pressure 132/91 153/93 153/93 O2 Sat by Pulse 97 97 Oximetry 12/16/17 10:32 Temperature Pulse Rate Respiratory Rate Blood Pressure 153/93 O2 Sat by Pulse Oximetry - Lab 12/12/17 11:00 12/16/17 06:56 Most recent lab results Calcium 9.0 mg/dL (8.4-10.2) 12/16/17 06:56 Magnesium 2.20 mg/dL (1.7-2.3) 12/12/17 11:00
--- NOTE | 2017-12-16 11:55 | Progress Note ---
Assessment and Plan Assessment and plan: --Acute CVA; right-sided weakness Patient not a candidate for TPA or thrombectomy Neuro workup is in progress, neurology consulted Physical therapy occupational therapy, aspirin and statin Workup; CT head without contrast; nonspecific chronic white matter changes; chronic focal infarcts; no acute abnormality, volume loss MRI brain; multifocal bilateral susceptibility signal white foci of nonspecific suggest underlying chronic process differential prior trauma emboli chronic medical hematoma or cortical calcification chronic appearing small infarcts Slight mucosal thickening maxillary sinuses and left ethmoid sinuses without evidence of fluid level Diffuse atrophy Carotid Doppler; less than 50% stenosis MRA; developmental variation of hypoplastic left FARZANEH Bilateral LAW ENFORCEMENT INSTRUCTOR stenosis may be from vasospasm of atherosclerotic change MRI C-spine; degenerative disc disease and spondylosis No significant spinal canal compromise Considerable left C6-C7 neural foraminal stenosis Echo; EF 55-60% --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; PT OT Supportive care --History of multiple myeloma; consult oncology if needed --Iron deficiency anemia; iron supplements, check for any evidence of bleeding --Hypertension; moderate control, continue current antihypertensives and when necessary medications --Dyslipidemia; continue statin, low cholesterol diet --Type 2 diabetes mellitus; Accu-Chek sliding scale coverage and ADA diet and insulin as needed --Acute kidney injury; secondary to ATN, creatinine trending down Closely monitor, nephrology as needed --DVT prophylaxis; Lovenox --DC planning ;Awaiting SNF placement Patient is medically stable for discharge History Interval history: Patient seen and examined medical records reviewed No new events reported by the nursing staff Patient's family on the bedside Feels comfortable and cheerful Awaiting SNF placement Signs noted Hospitalist Physical - Constitutional Vitals: Temp Pulse Resp BP Pulse Ox 99.3 F 78 20 153/93 97 12/16/17 08:10 12/16/17 08:10 12/16/17 08:10 12/16/17 10:32 12/16/17 08:10 General appearance: Present: no acute distress, well-nourished, obese - EENT Eyes: Present: PERRL, EOM intact - Neck Neck: Present: supple, normal ROM - Respiratory Respiratory effort: normal Respiratory: bilateral: diminished, negative: rales, rhonchi, wheezing - Cardiovascular Rhythm: regular Heart Sounds: Present: S1 & S2 - Extremities Extremities: no ischemia, No edema - Abdominal General gastrointestinal: soft, non-tender, non-distended, normal bowel sounds - Integumentary Integumentary: Present: clear, warm - Psychiatric Psychiatric: appropriate mood/affect, cooperative - Neurologic Neurologic: other (residual weakness) Results - Labs CBC & Chem 7: 12/12/17 11:00 12/16/17 06:56 Labs: Laboratory Last Values WBC 11.8 K/mm3 (4.5-11.0) H 12/12/17 11:00 RBC 3.67 M/mm3 (3.65-5.03) 12/12/17 11:00 Hgb 9.6 gm/dl (11.8-15.2) L 12/12/17 11:00 Hct 30.5 % (35.5-45.6) L 12/12/17 11:00 MCV 83 fl (84-94) L 12/12/17 11:00 MCH 26 pg (28-32) L 12/12/17 11:00 MCHC 32 % (32-34) 12/12/17 11:00 RDW 16.8 % (13.2-15.2) H 12/12/17 11:00 Plt Count 233 K/mm3 (140-440) 12/12/17 11:00 Lymph % (Auto) 9.8 % (13.4-35.0) L 12/12/17 11:00 [place] % (Auto) 10.3 % (0.0-7.3) H 12/12/17 11:00 Eos % (Auto) 0.7 % (0.0-4.3) 12/12/17 11:00 Baso % (Auto) 0.4 % (0.0-1.8) 12/12/17 11:00 Lymph # 1.2 K/mm3 (1.2-5.4) 12/12/17 11:00 [place] # 1.2 K/mm3 (0.0-0.8) H 12/12/17 11:00 Eos # 0.1 K/mm3 (0.0-0.4) 12/12/17 11:00 Baso # 0.0 K/mm3 (0.0-0.1) 12/12/17 11:00 Seg Neutrophils % 78.8 % (40.0-70.0) H 12/12/17 11:00 Seg Neutrophils # 9.3 K/mm3 (1.8-7.7) H 12/12/17 11:00 ESR > 140.0 mm/Hr (0-20) 12/12/17 11:40 PT 15.8 Sec. (12.2-14.9) H 12/12/17 11:00 INR 1.19 (0.87-1.13) H 12/12/17 11:00 APTT 41.1 Sec. (24.2-36.6) H 12/12/17 11:00 Thrombin Time 15.3 Sec. (15.1-19.6) 12/12/17 11:00 Sodium 145 mmol/L (137-145) 12/16/17 06:56 Potassium 3.8 mmol/L (3.6-5.0) 12/16/17 06:56 Chloride 107.0 mmol/L (98-107) 12/16/17 06:56 Carbon Dioxide 22 mmol/L (22-30) 12/16/17 06:56 Anion Gap 20 mmol/L 12/16/17 06:56 BUN 50 mg/dL (9-20) H 12/16/17 06:56 Creatinine 1.7 mg/dL (0.8-1.5) H 12/16/17 06:56 Estimated GFR 50 ml/min 12/16/17 06:56 BUN/Creatinine Ratio 29 % 12/16/17 06:56 Glucose 188 mg/dL (75-100) H 12/16/17 06:56 POC Glucose 337 (70-105) H 12/15/17 22:02 Lactic Acid 1.20 mmol/L (0.7-2.0) 12/12/17 12:25 Calcium 9.0 mg/dL (8.4-10.2) 12/16/17 06:56 Magnesium 2.20 mg/dL (1.7-2.3) 12/12/17 11:00 Iron 12 ug/dL (49-181) L 12/12/17 21:56 TIBC 172 mcg/dL (250-450) L 12/12/17 21:56 % Saturation 6.98 % 12/12/17 21:56 Transferrin 148 mg/dl (180-329) L 12/12/17 21:56 Total Bilirubin 0.40 mg/dL (0.1-1.2) 12/12/17 11:00 AST 15 units/L (5-40) 12/12/17 11:00 ALT 11 units/L (7-56) 12/12/17 11:00 Alkaline Phosphatase 110 units/L (35-129) 12/12/17 11:00 Total Creatine Kinase 166 units/L (55-170) 12/12/17 11:00 CK-MB (CK-2) 2.9 ng/mL (0.0-4.0) 12/12/17 11:00 CK-MB (CK-2) Rel Index 1.7 (0-4) 12/12/17 11:00 Troponin T 0.157 ng/mL (0.00-0.029) H* 12/12/17 11:00 C-Reactive Protein 25.50 mg/dL (0.00-1.30) H 12/12/17 11:40 Total Protein 8.4 g/dL (6.3-8.2) H 12/12/17 11:00 Albumin 3.6 g/dL (3.9-5) L 12/12/17 11:00 Albumin/Globulin Ratio 0.8 % 12/12/17 11:00 Triglycerides 180 mg/dL (2-149) H 12/12/17 11:00 Cholesterol 117 mg/dL (50-199) 12/12/17 11:00 LDL Cholesterol Direct 60 mg/dL (50-130) 12/12/17 11:00 HDL Cholesterol 34 mg/dL (40-59) L 12/12/17 11:00 Cholesterol/HDL Ratio 3.44 % 12/12/17 11:00 Urine Color Yellow (Yellow) 12/12/17 13:21 Urine Turbidity Clear (Clear) 12/12/17 13:21 Urine pH 5.0 (5.0-7.0) 12/12/17 13:21 Ur Specific [place] 1.012 (1.003-1.030) 12/12/17 13:21 Urine Protein 30 mg/dl mg/dL (Negative) 12/12/17 13:21 Urine Glucose (UA) Neg mg/dL (Negative) 12/12/17 13:21 Urine Ketones Neg mg/dL (Negative) 12/12/17 13:21 Urine Blood Neg (Negative) 12/12/17 13:21 Urine Nitrite Neg (Negative) 12/12/17 13:21 Urine Bilirubin Neg (Negative) 12/12/17 13:21 Urine Urobilinogen < 2.0 mg/dL (<2.0) 12/12/17 13:21 Ur Leukocyte Esterase Neg (Negative) 12/12/17 13:21 Urine WBC (Auto) < 1.0 /HPF (0.0-6.0) 12/12/17 13:21 Urine RBC (Auto) 1.0 /HPF (0.0-6.0) 12/12/17 13:21 Blood Type O POSITIVE 12/12/17 12:25 Antibody Screen Negative 12/12/17 12:25
[2017-12-17 08:38] LABS: Calcium 9.3 mg/dL (8.4-10.2)
[2017-12-17] MEDS: CATAPRES PO SCH ×2 (10:46→22:02)
[2017-12-17] MEDS: HumaLOG SUB-Q SCH ×5 (10:46→22:03)
[2017-12-17] MEDS: NORMODYNE PO SCH ×2 (10:47→22:01)
[2017-12-17] MEDS: PROCARDIA XL PO SCH (10:47)
[2017-12-17] MEDS: PRAVACHOL PO SCH (10:47)
[2017-12-17] MEDS: LOVENOX SUB-Q SCH (10:48)
--- NOTE | 2017-12-17 10:59 | Progress Note ---
Assessment and Plan Impression: * Stage III/IV chronic kidney disease --SCr 2.6mg/dL in October 2017 * Right side weakness - r/o CVA * Fever - defervescing * MM * Anemia secondary to MM vs CKD * Hypertension * Type II DM * Hx of CVA Plan: * Renal function is better today * stopped arb * Neuro following * Empiric abx per primary team * Blood/urine cx - NGTD presently * Continue antiHTN medications * Avoid nephrotoxins * Daily labs * ok to dc home from renal standpoint Subjective Date of service: 12/17/17 Principal diagnosis: Right side weakness. Interval history: chart reviewed, no acute events Objective - Exam Narrative Exam: General appearance: well-developed, well-nourished EENT: ATNC Respiratory: Present: Clear to Ascultation Cardiology: regular, S1S2 Gastrointestinal: normal, no tenderness, no distended Integumentary: no rash, warm and dry Musculoskeletal: other (no edema) Psychiatric: cooperative - Vital Signs Vital signs: Vital Signs - 12hr 12/16/17 12/17/17 12/17/17 23:30 03:22 07:50 Temperature 100.2 F H 100.7 F H 99.2 F Pulse Rate 84 81 82 Respiratory 28 H 28 H 20 Rate Blood Pressure 121/77 137/86 145/90 O2 Sat by Pulse 96 95 97 Oximetry 12/17/17 12/17/17 10:46 10:47 Temperature Pulse Rate 82 82 Respiratory Rate Blood Pressure 145/90 145/90 O2 Sat by Pulse Oximetry - Lab 12/12/17 11:00 12/17/17 07:47 Most recent lab results Calcium 9.3 mg/dL (8.4-10.2) 12/17/17 07:47 Magnesium 2.20 mg/dL (1.7-2.3) 12/12/17 11:00
--- NOTE | 2017-12-17 13:09 | Progress Note ---
Assessment and Plan Assessment and plan: --Possible Acute CVA; right-sided weakness Patient not a candidate for TPA or thrombectomy Neuro workup is negative for acute CVA, neurology following Physical therapy occupational therapy, aspirin and statin Workup; CT head without contrast; nonspecific chronic white matter changes; chronic focal infarcts; no acute abnormality, volume loss MRI brain; multifocal bilateral susceptibility signal white foci of nonspecific suggest underlying chronic process differential prior trauma emboli chronic medical hematoma or cortical calcification chronic appearing small infarcts Slight mucosal thickening maxillary sinuses and left ethmoid sinuses without evidence of fluid level Diffuse atrophy Carotid Doppler; less than 50% stenosis MRA; developmental variation of hypoplastic left FARZANEH Bilateral CUSTOMER SUCCESS SPECIALIST stenosis may be from vasospasm of atherosclerotic change MRI C-spine; degenerative disc disease and spondylosis No significant spinal canal compromise Considerable left C6-C7 neural foraminal stenosis Echo; EF 55-60% --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; PT OT Supportive care --History of multiple myeloma; consult oncology if needed --Iron deficiency anemia; iron supplements, check for any evidence of bleeding --Hypertension; moderate control, continue current antihypertensives and when necessary medications --Dyslipidemia; continue statin, low cholesterol diet --Type 2 diabetes mellitus; Accu-Chek sliding scale coverage and ADA diet and insulin as needed --Acute kidney injury; secondary to ATN, creatinine trending down Closely monitor, nephrology as needed --DVT prophylaxis; Lovenox Plan of care reviewed with the patient and the family member at the bedside --DC planning ;Awaiting SNF placement Patient is medically stable for discharge History Interval history: Patient seen and examined medical records reviewed Patient feels slightly better and wants to go home Medically stable for discharge, awaiting SNF placement Alert awake oriented 3 Vital signs reviewed Hospitalist Physical - Constitutional Vitals: Temp Pulse Resp BP Pulse Ox 99.2 F 82 20 145/90 97 12/17/17 07:50 12/17/17 10:47 12/17/17 07:50 12/17/17 10:47 12/17/17 07:50 General appearance: Present: no acute distress, well-nourished, obese - EENT Eyes: Present: PERRL, EOM intact - Neck Neck: Present: supple, normal ROM - Respiratory Respiratory effort: normal Respiratory: bilateral: diminished, negative: rales, rhonchi, wheezing - Cardiovascular Rhythm: regular Heart Sounds: Present: S1 & S2 - Extremities Extremities: no ischemia, No edema Extremity abnormal: edema, cyanosis - Abdominal General gastrointestinal: soft, non-tender, non-distended, normal bowel sounds - Integumentary Integumentary: Present: clear, warm - Psychiatric Psychiatric: appropriate mood/affect, cooperative - Neurologic Neurologic: other (left-sided weakness, right-sided weakness) Results - Labs CBC & Chem 7: 12/12/17 11:00 12/17/17 07:47 Labs: Laboratory Last Values WBC 11.8 K/mm3 (4.5-11.0) H 12/12/17 11:00 RBC 3.67 M/mm3 (3.65-5.03) 12/12/17 11:00 Hgb 9.6 gm/dl (11.8-15.2) L 12/12/17 11:00 Hct 30.5 % (35.5-45.6) L 12/12/17 11:00 MCV 83 fl (84-94) L 12/12/17 11:00 MCH 26 pg (28-32) L 12/12/17 11:00 MCHC 32 % (32-34) 12/12/17 11:00 RDW 16.8 % (13.2-15.2) H 12/12/17 11:00 Plt Count 233 K/mm3 (140-440) 12/12/17 11:00 Lymph % (Auto) 9.8 % (13.4-35.0) L 12/12/17 11:00 [place] % (Auto) 10.3 % (0.0-7.3) H 12/12/17 11:00 Eos % (Auto) 0.7 % (0.0-4.3) 12/12/17 11:00 Baso % (Auto) 0.4 % (0.0-1.8) 12/12/17 11:00 Lymph # 1.2 K/mm3 (1.2-5.4) 12/12/17 11:00 [place] # 1.2 K/mm3 (0.0-0.8) H 12/12/17 11:00 Eos # 0.1 K/mm3 (0.0-0.4) 12/12/17 11:00 Baso # 0.0 K/mm3 (0.0-0.1) 12/12/17 11:00 Seg Neutrophils % 78.8 % (40.0-70.0) H 12/12/17 11:00 Seg Neutrophils # 9.3 K/mm3 (1.8-7.7) H 12/12/17 11:00 ESR > 140.0 mm/Hr (0-20) 12/12/17 11:40 PT 15.8 Sec. (12.2-14.9) H 12/12/17 11:00 INR 1.19 (0.87-1.13) H 12/12/17 11:00 APTT 41.1 Sec. (24.2-36.6) H 12/12/17 11:00 Thrombin Time 15.3 Sec. (15.1-19.6) 12/12/17 11:00 Sodium 142 mmol/L (137-145) 12/17/17 07:47 Potassium 3.9 mmol/L (3.6-5.0) 12/17/17 07:47 Chloride 104.7 mmol/L (98-107) 12/17/17 07:47 Carbon Dioxide 21 mmol/L (22-30) L 12/17/17 07:47 Anion Gap 20 mmol/L 12/17/17 07:47 BUN 40 mg/dL (9-20) H 12/17/17 07:47 Creatinine 1.5 mg/dL (0.8-1.5) 12/17/17 07:47 Estimated GFR 58 ml/min 12/17/17 07:47 BUN/Creatinine Ratio 27 % 12/17/17 07:47 Glucose 184 mg/dL (75-100) H 12/17/17 07:47 POC Glucose 293 (70-105) H 12/17/17 11:49 Lactic Acid 1.20 mmol/L (0.7-2.0) 12/12/17 12:25 Calcium 9.3 mg/dL (8.4-10.2) 12/17/17 07:47 Magnesium 2.20 mg/dL (1.7-2.3) 12/12/17 11:00 Iron 12 ug/dL (49-181) L 12/12/17 21:56 TIBC 172 mcg/dL (250-450) L 12/12/17 21:56 % Saturation 6.98 % 12/12/17 21:56 Transferrin 148 mg/dl (180-329) L 12/12/17 21:56 Total Bilirubin 0.40 mg/dL (0.1-1.2) 12/12/17 11:00 AST 15 units/L (5-40) 12/12/17 11:00 ALT 11 units/L (7-56) 12/12/17 11:00 Alkaline Phosphatase 110 units/L (35-129) 12/12/17 11:00 Total Creatine Kinase 166 units/L (55-170) 12/12/17 11:00 CK-MB (CK-2) 2.9 ng/mL (0.0-4.0) 12/12/17 11:00 CK-MB (CK-2) Rel Index 1.7 (0-4) 12/12/17 11:00 Troponin T 0.157 ng/mL (0.00-0.029) H* 12/12/17 11:00 C-Reactive Protein 25.50 mg/dL (0.00-1.30) H 12/12/17 11:40 Total Protein 8.4 g/dL (6.3-8.2) H 12/12/17 11:00 Albumin 3.6 g/dL (3.9-5) L 12/12/17 11:00 Albumin/Globulin Ratio 0.8 % 12/12/17 11:00 Triglycerides 180 mg/dL (2-149) H 12/12/17 11:00 Cholesterol 117 mg/dL (50-199) 12/12/17 11:00 LDL Cholesterol Direct 60 mg/dL (50-130) 12/12/17 11:00 HDL Cholesterol 34 mg/dL (40-59) L 12/12/17 11:00 Cholesterol/HDL Ratio 3.44 % 12/12/17 11:00 Urine Color Yellow (Yellow) 12/12/17 13:21 Urine Turbidity Clear (Clear) 12/12/17 13:21 Urine pH 5.0 (5.0-7.0) 12/12/17 13:21 Ur Specific [place] 1.012 (1.003-1.030) 12/12/17 13:21 Urine Protein 30 mg/dl mg/dL (Negative) 12/12/17 13:21 Urine Glucose (UA) Neg mg/dL (Negative) 12/12/17 13:21 Urine Ketones Neg mg/dL (Negative) 12/12/17 13:21 Urine Blood Neg (Negative) 12/12/17 13:21 Urine Nitrite Neg (Negative) 12/12/17 13:21 Urine Bilirubin Neg (Negative) 12/12/17 13:21 Urine Urobilinogen < 2.0 mg/dL (<2.0) 12/12/17 13:21 Ur Leukocyte Esterase Neg (Negative) 12/12/17 13:21 Urine WBC (Auto) < 1.0 /HPF (0.0-6.0) 12/12/17 13:21 Urine RBC (Auto) 1.0 /HPF (0.0-6.0) 12/12/17 13:21 Blood Type O POSITIVE 12/12/17 12:25 Antibody Screen Negative 12/12/17 12:25
[2017-12-17] MEDS ORDERED: LANTUS SUB-Q SCH (22:00)
[2017-12-18] MEDS: HumaLOG SUB-Q SCH ×2 (08:21→13:00)
[2017-12-18 09:10] LABS: BUN/Creatinine Ratio 25; Blood Urea Nitrogen 32 mg/dL (9-20); Calcium 9.6 mg/dL (8.4-10.2); Hemolysis Index 1
--- NOTE | 2017-12-18 10:04 | Progress Note ---
Assessment and Plan Impression: * Stage III/IV chronic kidney disease --SCr 2.6mg/dL in October 2017 * Right side weakness - r/o CVA * Fever - defervescing * MM * Anemia secondary to MM vs CKD * Hypertension * Type II DM * Hx of CVA Plan: * Renal function is better today * stopped arb * Neuro following * Empiric abx per primary team * Blood/urine cx - NGTD presently * Continue antiHTN medications * Avoid nephrotoxins * Daily labs * ok to dc home from renal standpoint * will sign off Subjective Date of service: 12/18/17 Principal diagnosis: Right side weakness. Interval history: chart reviewed, no acute events Objective - Exam Narrative Exam: General appearance: well-developed, well-nourished EENT: ATNC Respiratory: Present: Clear to Ascultation Cardiology: regular, S1S2 Gastrointestinal: normal, no tenderness, no distended Integumentary: no rash, warm and dry Musculoskeletal: other (no edema) Psychiatric: cooperative - Vital Signs Vital signs: Vital Signs - 12hr 12/17/17 12/18/17 12/18/17 23:28 03:02 08:01 Temperature 99.2 F 98.8 F 99.5 F Pulse Rate 81 75 83 Respiratory 28 H 24 19 Rate Blood Pressure 134/92 148/95 148/96 O2 Sat by Pulse 97 97 96 Oximetry - Lab 12/12/17 11:00 12/18/17 08:12 Most recent lab results Calcium 9.6 mg/dL (8.4-10.2) 12/18/17 08:12 Magnesium 2.20 mg/dL (1.7-2.3) 12/12/17 11:00
[2017-12-18] MEDS: LOVENOX SUB-Q SCH (11:09)
[2017-12-18] MEDS: PROCARDIA XL PO SCH (11:09)
[2017-12-18] MEDS: PRAVACHOL PO SCH (11:09)
[2017-12-18] MEDS: CATAPRES PO SCH (11:10)
[2017-12-18] MEDS: NORMODYNE PO SCH (11:10)
--- NOTE | 2017-12-18 14:06 | Discharge Summary ---
Providers - Providers Date of Admission: 12/12/17 14:22 Date of discharge: 12/18/17 Attending physician: JOSE MANUEL ARELLANO 12/12/17 Consult to Physician [CONS] Routine Comment: Consulting Provider: ROBBIE JIMENEZ Physician Instructions: Reason For Exam: Acute CVA 12/12/17 21:34 Occupational Therapy Evaluate and Treat [CONS] Routine Comment: Reason For Exam: Neuro deficits Physical Therapy Evaluation and Treat [CONS] Routine Comment: Reason For Exam: Neuro deficits 12/13/17 02:23 Consult to Physician [CONS] Routine Comment: Consulting Provider: MARTHA MCKEON Physician Instructions: Reason For Exam: GERMAIN/CKD Primary care physician: SHIRIN MENA Hospitalization Reason for admission: sudden right-sided weakness/acute CVA Condition: Good Pertinent studies: Workup; CT head without contrast; nonspecific chronic white matter changes; chronic focal infarcts; no acute abnormality, volume loss MRI brain; multifocal bilateral susceptibility signal white foci of nonspecific suggest underlying chronic process differential prior trauma emboli chronic medical hematoma or cortical calcification chronic appearing small infarcts Slight mucosal thickening maxillary sinuses and left ethmoid sinuses without evidence of fluid level Diffuse atrophy Carotid Doppler; less than 50% stenosis MRA; developmental variation of hypoplastic left FARZANEH Bilateral EYELET CUTTER stenosis may be from vasospasm of atherosclerotic change MRI C-spine; degenerative disc disease and spondylosis No significant spinal canal compromise Considerable left C6-C7 neural foraminal stenosis Echo; EF 55-60% Hospital course: Very pleasant 57-year-old male patient with significant history of cerebrovascular accident with left-sided weakness was admitted through emergency room with right upper and lower extremity weakness of 2 days duration, Patient was not a candidate for TPA or thrombectomy, Initially evaluated and admitted to the hospital, started stroke pathway And initiate aspirin and statin, Patient had extensive neuro workup as mentioned above Evaluated by neurology, medications were optimized Received physical therapy occupational therapy speech therapy Evaluated by rehabilitation personnel for subacute rehabilitation Patient's symptoms significantly improved, tolerated PT OT Today's comfortable in bed tolerating oral nutrition weakness slightly improved Physical examination no new changes, Patient is hemodynamically and clinically stable for discharge and transfer to subacute rehabilitation/SNF today Discharge diagnosis; --Possible Acute CVA; right-sided weakness Patient not a candidate for TPA or thrombectomy --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; PT OT --History of multiple myeloma; --Iron deficiency anemia; iron supplements, --Hypertension; moderate control, --Dyslipidemia; continue statin, --Type 2 diabetes mellitus --Acute kidney injury; secondary to ATN, Patient is medically stable for discharge and transfer to SNF Disposition: DC/[place]-03 [facility] Time spent for discharge: 33 min Core Measure Documentation - Palliative Care Palliative Care/ Comfort Measures: Not Applicable - Core Measures Any of the following diagnoses?: none Exam - Constitutional Vitals: Temp Pulse Resp BP Pulse Ox 100.0 F H 95 H 20 143/105 97 12/18/17 12:32 12/18/17 12:32 12/18/17 12:32 12/18/17 12:32 12/18/17 12:32 General appearance: Present: no acute distress, well-nourished - EENT Eyes: Present: PERRL, EOM intact - Neck Neck: Present: supple - Respiratory Respiratory effort: normal Respiratory: bilateral: diminished, negative: rales, rhonchi, wheezing - Cardiovascular Rhythm: regular Heart Sounds: Present: S1 & S2 - Extremities Extremities: no ischemia, pulses intact - Abdominal General gastrointestinal: Present: soft, non-tender, non-distended, normal bowel sounds - Integumentary Integumentary: Present: clear, warm - Musculoskeletal Musculoskeletal: right sided weakness, left sided weakness, generalized weakness , other - Psychiatric Psychiatric: appropriate mood/affect, cooperative - Neurologic Neurologic: moves all extremities ( moves all 4 extremities) Plan Activity: advance as tolerated, fall precautions Diet: diabetic, other (cardiac diet) Special Instructions: physical therapy, occupational therapy Additional Instructions: Advised fall precautions. Physical therapy, occupational therapy. Use cane/ walker/wheelchair as needed Follow up with: SHIRIN MENA MD [Primary Care Provider] - 3-5 Days STEPHEN BARCLAY MD [Referring] - 7 Days
[2017-12-18] MEDS: PERCOCET 5/325 PO PRN (14:20)
[2017-12-18 16:23] VITALS: BP 145/93
== END 2017-12-18 17:30 | DRG 871 ==
LOC: ED 09:22 → 4A 14:22 → 3A 20:09
PROVIDERS: ADMIT Internal Medicine; ATTEND Internal Medicine
DX: A41.9 Sepsis, unspecified organism (principal); I63.9 Cerebral infarction, unspecified; N17.0 Acute kidney failure with tubular necrosis; G81.91 Hemiplegia, unspecified affecting right dominant side; I13.0 Hypertensive heart and chronic kidney disease with heart failure and stage 1 through stage 4 chronic kidney disease, or unspecified chronic kidney disease; D50.9 Iron deficiency anemia, unspecified; E78.5 Hyperlipidemia, unspecified; E11.22 Type 2 diabetes mellitus with diabetic chronic kidney disease; N18.3 Chronic kidney disease, stage 3 (moderate); I50.9 Heart failure, unspecified; G89.29 Other chronic pain; E55.9 Vitamin D deficiency, unspecified; Z80.9 Family history of malignant neoplasm, unspecified; Z85.79 Personal history of other malignant neoplasms of lymphoid, hematopoietic and related tissues; Z79.899 Other long term (current) drug therapy; Z79.4 Long term (current) use of insulin; Z82.49 Family history of ischemic heart disease and other diseases of the circulatory system; Z83.3 Family history of diabetes mellitus; Z82.3 Family history of stroke
CPT/HCPCS: 36415; 70450; 70544; 70551; 71045; 72141; 80048; 80053; 80061; 81001; 82140; 82550; 82553; 82962; 83036; 83550; 83735; 84484; 85025; 85610; 85652; 85670; 85730; 86140; 86850; 86900; 86901; 87040; 87086; 93005; 93010; 93306; 93880; 96361; 96365; 96367; A9270-GY; G8978-GP; G8979-GP; G8987-GO; G8988-GO; J0692; J1650; J1815; J3370; J7030; J7040; J7050

== ENCOUNTER 2018-03-27 08:26 | Day surgery (SDC) | payer MEDICARE ==
[2018-03-27] MEDS ORDERED: NACL 0.9% 1000 ML 1,000 ML IV SCH (11:00)
[2018-03-27] MEDS ORDERED: DIPRIVAN 10 MG/ML IV ONE (11:03)
--- NOTE | 2018-03-27 11:21 | Short Stay Summary ---
Short Stay Documentation Date of service: 03/27/18 Narrative H&P: The patient presented for EGD and colonoscopy to evaluate iron deficiency anemia from chronic GI blood loss. Colonoscopy was cancelled because the patient was not given the complete prep. - History Past Medical History: diabetes, hypertension, hyperlipidemia, stroke, other ( Renal insufficiency, stage 3.) Past Surgical History: No surgical history Social history: no significant social history, - Allergies and Medications Current Medications: Allergies No Known Allergies Allergy (Verified 03/27/18 10:16) Home Medications Medication Instructions Recorded Confirmed Last Taken Type RX: Labetalol HCl 300 mg PO BID 01/23/16 03/27/18 Unknown History RX: cloNIDine [Catapres] 0.2 mg PO BID 01/23/16 03/27/18 03/26/18 History RX: NIFEdipine XL [Procardia Xl] 90 mg PO QDAY #30 tablet 09/13/16 03/27/18 Unknown Rx RX: Ergocalciferol [Vitamin D2] 1 cap PO QWEEK 12/12/17 03/27/18 Unknown History RX: Furosemide [Lasix TAB] 40 mg PO QDAY 12/12/17 03/27/18 03/26/18 History RX: Insulin Glargine,Hum.rec.anlog 15 units SUB-Q HS 12/12/17 03/27/18 12/12/17 History [Basaglar Kwikpen U-100] RX: Insulin Glargine,Hum.rec.anlog 30 units SUB-Q QPM 12/12/17 03/27/18 Unknown History [Basaglar Kwikpen U-100] RX: Lactulose [Constulose] 10 gm PO DAILY PRN 12/12/17 03/27/18 Unknown History RX: Losartan [Cozaar] 100 mg PO QDAY 12/12/17 03/27/18 03/26/18 History RX: Multivitamin Tab [Multiple 1 each PO QDAY 12/12/17 03/27/18 03/26/18 History Vitamin TAB (Theragran)] RX: Potassium Chloride [K-Tab ER] 20 meq PO QDAY 12/12/17 03/27/18 03/26/18 History RX: Pravastatin [Pravachol] 20 mg PO DAILY 12/12/17 03/27/18 03/26/18 History RX: glipiZIDE [Glipizide] 10 mg PO QDAY 12/12/17 03/27/18 03/26/18 History RX: Insulin Glargine [Lantus VIAL] 8 units SUB-Q QHS units 12/18/17 03/27/18 Rx RX: Lispro Insulin [Humalog] 0 unit SUB-Q ACHS units 12/18/17 03/27/18 Unknown Rx Active Medications Sodium Chloride (Nacl 0.9% 1000 Ml) 1,000 mls @ 50 mls/hr IV DIRECT JUAN ALBERTO Last Admin: 03/27/18 10:46 Dose: 50 mls/hr - Physical exam General appearance: no acute distress, well-nourished Integumentary: no rash, no growths, no abnormal pigmentation HEENT: Atraumatic, PERRLA, EOMI, Mucous membr. moist/pink Lungs: Clear to auscultation, Normal air movement Breasts: deferred Heart: Regular rate, Normal S1, Normal S2, No murmurs Gastrointestinal: normoactive bowel sounds, no tenderness, no distended, no masses, no guarding, no organomegaly Male Genitourinary: deferred Rectal Exam: deferred Extremities: no ischemia, pulses intact, pulses symmetrical, No edema, normal temperature, normal color, Full ROM Neurological: Normal gait, Normal speech, Cranial nerves 3-12 NL, Other (righe sided weakness) - Brief post op/procedure progress note Date of procedure: 03/27/18 Findings: see dictated report Estimated blood loss: none Pathology: list (antral biopsies to rule out h.pylori) Specimen disposition: to lab Condition: stable - Disposition Condition at discharge: Good Disposition: DC-01 TO HOME OR SELFCARE - Discharge Diagnoses (1) Iron deficiency anemia due to chronic blood loss Status: Acute Short Stay Discharge Plan Activity: advance as tolerated Weight Bearing Status: Non-Weight Bearing Diet: diabetic Follow up with: SHIRIN MENA MD [Primary Care Provider] - 7 Days
--- NOTE | 2018-03-27 11:26 | Anesthesia Consultation ---
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
--- NOTE | 2018-03-27 11:26 | Anesthesia Day of Surgery ---
Anesthesia Day of Surgery - Day of Surgery Patient Examined: Yes Patient H&P Reviewed: Yes Patient is NPO: Yes
--- NOTE | 2018-03-27 11:30 | Operative Report ---
Operative Report Operative Report: Date of procedure: 03/27/2018 Procedure: Esophagogastroduodenoscopy with biopsies of the antrum to assess for H. pylori infection. Preprocedure diagnosis: Iron deficiency anemia secondary to chronic blood loss Post procedure diagnosis: []Duodenitis and diverticulum of the duodenal bulb consistent with a history of peptic disease Endoscopist: Dr. Aceves Anesthesia: Monitored anesthesia care per anesthesia department Medications: Propofol per anesthesia Estimated blood loss: 0 After careful discussion of the nature and purpose of the procedure as well as details the technique risks benefits and alternatives consent was obtained. The patient was placed in the left lateral decubitus position and medicated per anesthesia. The tip of the [employer] EQ 570 video scope was passed per orum under direct vision into the esophagus and advanced into the stomach and descending duodenum. The descending duodenum is normal. The duodenal bulb was deformed with a diverticulum being present and an adjacent erosion although no deep or active ulcer. Pylorus was fixed open and patent. The scope was withdrawn into the stomach and the stomach then gently insufflated with air. The antrum was normal. Biopsies of the antrum were taken to assess for h.pylori infection. The stomach was further insufflated and the scope was then retroflexed and partially withdrawn. The cardia, fundus, and body of the stomach were within normal limits and easily distensible.The scope was then withdrawn in the forward position. The esophagogastric junction was at [40 cm] . The esophageal body was normal throughout. The procedure was was well tolerated and the patient was observed in recovery. Impressions: [Duodenitis and a duodenal bulb diverticulum. Normal stomach and esophagus ] Plan: [Await biopsies for h.pylori. Begin Omeprazole 40mg daily. Reschedule colonoscopy, not due due to lack of prep today.] Electronically signed: Jacinto Aceves MD
[2018-03-27 15:39] VITALS: BP 140/79
== END 2018-03-27 08:27 | disposition home or self-care (01) ==
LOC: GIO 08:26
PROVIDERS: ATTEND Internal Medicine Gastroenterology
DX: K29.50 Unspecified chronic gastritis without bleeding (principal); B96.81 Helicobacter pylori [H. pylori] as the cause of diseases classified elsewhere; K29.80 Duodenitis without bleeding; K57.10 Diverticulosis of small intestine without perforation or abscess without bleeding; D50.0 Iron deficiency anemia secondary to blood loss (chronic); I10 Essential (primary) hypertension; E78.00 Pure hypercholesterolemia, unspecified; E11.9 Type 2 diabetes mellitus without complications; Z79.4 Long term (current) use of insulin; Z79.899 Other long term (current) drug therapy; Z87.891 Personal history of nicotine dependence; Z86.73 Personal history of transient ischemic attack (TIA), and cerebral infarction without residual deficits; Z85.79 Personal history of other malignant neoplasms of lymphoid, hematopoietic and related tissues; Z98.890 Other specified postprocedural states; Z83.3 Family history of diabetes mellitus; Z82.49 Family history of ischemic heart disease and other diseases of the circulatory system
CPT/HCPCS: 43239; 82962; 88305; 88342; J2704; J7030

== ENCOUNTER 2018-09-16 03:48 | Inpatient (IN) | payer MEDICARE ==
[2018-09-16 04:48] LABS: Basophils # (Auto) 0.1 K/mm3 (0.0-0.1); Basophils % (Auto) 0.5 % (0.0-1.8); Eosinophils % (Auto) 0.1 % (0.0-4.3); Hematocrit 45.9 % (35.5-45.6); Hemoglobin 15.3 gm/dl (11.8-15.2); Lymphocytes # (Auto) 1.3 K/mm3 (1.2-5.4); Lymphocytes % (Auto) 7.5 % (13.4-35.0); Mean Corpuscular HGB Conc 33 % (32-34); Mean Corpuscular Volume 80 fl (84-94); Monocytes % (Auto) 6.1 % (0.0-7.3); Platelet Count 163 K/mm3 (140-440); Red Blood Count 5.74 M/mm3 (3.65-5.03); Red Cell Distribution Width 17.7 % (13.2-15.2)
[2018-09-16 05:01] LABS: INR 0.94 (0.87-1.13)
[2018-09-16 05:02] LABS: Partial Thromboplastin Time 29.8 Sec. (24.2-36.6)
[2018-09-16 05:07] LABS: Calcium 8.5 mg/dL (8.4-10.2)
[2018-09-16] MEDS ORDERED: NORMODYNE IV ONE (05:35)
[2018-09-16] MEDS ORDERED: LEVAQUIN PO ONE (10:39)
[2018-09-16] MEDS ORDERED: NACL 0.9% 1000 ML IV ONE (10:39)
[2018-09-16] MEDS ORDERED: TYLENOL PO STA (10:39)
--- NOTE | 2018-09-16 10:43 | Emergency Department Report ---
ED General Adult HPI - General Chief complaint: GI Bleed Stated complaint: RECTAL BLEEDING Time Seen by Provider: 09/16/18 10:01 Source: patient, family, EMS (ems notes not available at time of chart dictation), RN notes reviewed, old records reviewed Mode of arrival: Stretcher Limitations: Physical Limitation - History of Present Illness Initial comments: This is a 58-year-old gentleman. His past medical history includes developed, dilated colon consistent with pseudoobstruction, iron deficiency anemia, colonoscopy in April 2018, which was essentially negative for significant colonic findings, also has a history of hypertension, diabetes, stroke, high cholesterol, renal insufficiency Primary care Dr.: Dr. Mallory Nephrology: Dr. Barr Gastroenterology: Dr. Aceves The patient is sent to the emergency room by his local care home for evaluation of hypertension and GI bleed. The patient denies physical complaints. The patient was also reported to have hypertension. Patient has no complaints at this time. Probably, GI bleed has started within the past 24-48hours. -: days(s) Consistency: constant Improves with: none Worsens with: none - Related Data Home Medications Medication Instructions Recorded Confirmed Last Taken Labetalol HCl 300 mg PO BID 01/23/16 09/16/18 04/30/18 cloNIDine [Catapres] 0.2 mg PO BID 01/23/16 09/16/18 04/30/18 Ergocalciferol [Vitamin D2] 1 cap PO QWEEK 12/12/17 09/16/18 Unknown Furosemide [Lasix TAB] 40 mg PO QDAY 12/12/17 09/16/18 04/30/18 Insulin Glargine,Hum.rec.anlog 15 units SUB-Q HS 12/12/17 09/16/18 12/12/17 [Basaglar Kwikpen U-100] Insulin Glargine,Hum.rec.anlog 30 units SUB-Q QPM 12/12/17 09/16/18 04/30/18 [Basaglar Kwikpen U-100] Lactulose [Constulose] 10 gm PO DAILY PRN 12/12/17 09/16/18 04/30/18 Losartan [Cozaar] 100 mg PO QDAY 12/12/17 09/16/18 03/26/18 Multivitamin Tab [Multiple Vitamin 1 each PO QDAY 12/12/17 09/16/18 04/30/18 TAB (Theragran)] Potassium Chloride [K-Tab ER] 20 meq PO QDAY 12/12/17 09/16/18 04/30/18 Pravastatin [Pravachol] 20 mg PO DAILY 12/12/17 09/16/18 04/30/18 glipiZIDE [Glipizide] 10 mg PO QDAY 12/12/17 09/16/18 04/30/18 Lispro Insulin [Humalog] 0 unit SUB-Q ACHS 09/16/18 09/16/18 Unknown Previous Rx's Medication Instructions Recorded Last Taken Type NIFEdipine XL [Procardia Xl] 90 mg PO QDAY #30 tablet 09/13/16 04/30/18 Rx Insulin Glargine [Lantus VIAL] 8 units SUB-Q QHS units 12/18/17 03/26/18 Rx Allergies Allergy/AdvReac Type Severity Reaction Status Date / Time No Known Allergies Allergy Verified 03/27/18 10:16 ED Review of Systems ROS: Stated complaint: RECTAL BLEEDING Other details as noted in HPI Constitutional: malaise Eyes: denies: vision change ENT: denies: epistaxis Cardiovascular: denies: chest pain Gastrointestinal: other (bright red blood per rectum). denies: abdominal pain Genitourinary: denies: dysuria Musculoskeletal: arthralgia Skin: denies: rash Neurological: weakness Psychiatric: anxiety ED Past Medical Hx - Past Medical History Previous Medical History?: Yes Hx Hypertension: Yes (high cholesterol) Hx CVA: Yes (with residual left-sided weakness) Hx Congestive Heart Failure: No Hx Diabetes: Yes Hx Renal Disease: Yes (stage 3) Hx Sickle Cell Disease: No Hx Asthma: No Hx COPD: No Hx HIV: No Additional medical history: elevated cholesterol, multiple myeloma - Surgical History Past Surgical History?: No - Social History Smoking Status: Never Smoker Substance Use Type: Alcohol - Medications Home Medications: Home Medications Medication Instructions Recorded Confirmed Last Taken Type Labetalol HCl 300 mg PO BID 01/23/16 09/16/18 04/30/18 History cloNIDine [Catapres] 0.2 mg PO BID 01/23/16 09/16/18 04/30/18 History NIFEdipine XL [Procardia Xl] 90 mg PO QDAY #30 tablet 03/09/16/18 04/30/18 Rx Ergocalciferol [Vitamin D2] 1 cap PO QWEEK 12/12/17 09/16/18 Unknown History Furosemide [Lasix TAB] 40 mg PO QDAY 12/12/17 09/16/18 04/30/18 History Insulin Glargine,Hum.rec.anlog 15 units SUB-Q HS 12/12/17 09/16/18 12/12/17 History [Basaglar Kwikpen U-100] Insulin Glargine,Hum.rec.anlog 30 units SUB-Q QPM 12/12/17 09/16/18 04/30/18 History [Basaglar Kwikpen U-100] Lactulose [Constulose] 10 gm PO DAILY PRN 12/12/17 09/16/18 04/30/18 History Losartan [Cozaar] 100 mg PO QDAY 12/12/17 09/16/18 03/26/18 History Multivitamin Tab [Multiple Vitamin 1 each PO QDAY 12/12/17 09/16/18 04/30/18 History TAB (Theragran)] Potassium Chloride [K-Tab ER] 20 meq PO QDAY 12/12/17 09/16/18 04/30/18 History Pravastatin [Pravachol] 20 mg PO DAILY 12/12/17 09/16/18 04/30/18 History glipiZIDE [Glipizide] 10 mg PO QDAY 12/12/17 09/16/18 04/30/18 History Insulin Glargine [Lantus VIAL] 8 units SUB-Q QHS units 12/18/17 09/16/18 03/26/18 Rx Lispro Insulin [Humalog] 0 unit SUB-Q ACHS 09/16/18 09/16/18 Unknown History ED Physical Exam - General Limitations: Physical Limitation General appearance: alert, anxious, obese - Head Head exam: Present: atraumatic, normocephalic - Eye Eye exam: Present: normal appearance, EOMI. Absent: nystagmus - ENT ENT exam: Present: normal exam, normal orophraynx, mucous membranes moist, normal external ear exam - Neck Neck exam: Present: normal inspection, full ROM. Absent: tenderness, meningismus - Respiratory Respiratory exam: Present: normal lung sounds bilaterally. Absent: respiratory distress - Cardiovascular Cardiovascular Exam: Present: regular rate, normal rhythm, normal heart sounds. Absent: bradycardia, tachycardia, irregular rhythm, systolic murmur, diastolic murmur, rubs, gallop - GI/Abdominal GI/Abdominal exam: Present: soft. Absent: distended, tenderness, guarding, rebound, rigid, pulsatile mass - Rectal Rectal exam: Present: normal inspection, normal rectal tone, heme (+) stool, bloody stool, other (chaperoned by nurse Dixie Syed) - Extremities Exam Extremities exam: Present: normal inspection, pedal edema (bilateral lower extremity swelling, left greater than right, this is chronic as per patient and family). Absent: full ROM (chronically decreased range of motion left arm, left leg) - Back Exam Back exam: Present: normal inspection, full ROM. Absent: tenderness, CVA tenderness (R), paraspinal tenderness, vertebral tenderness - Neurological Exam Neurological exam: Present: alert, motor sensory deficit (chronic weakness left arm, left leg. Sensation intact to light touch 4 extremities. 5/5 strength right arm, right leg) - Psychiatric Psychiatric exam: Present: flat affect - Skin Skin exam: Present: warm, dry, intact, normal color. Absent: rash ED Course Vital Signs 09/16/18 09/16/18 09/16/18 04:06 05:00 05:31 Temperature 99.2 F Pulse Rate 93 H 92 H 94 H Respiratory 24 22 28 H Rate Blood Pressure 201/130 198/129 198/129 Blood Pressure 201/130 [Right] O2 Sat by Pulse 98 96 98 Oximetry 09/16/18 09/16/18 09/16/18 05:51 06:00 06:31 Temperature Pulse Rate 94 H 87 91 H Respiratory 23 26 H Rate Blood Pressure 181/119 185/127 185/127 Blood Pressure [Right] O2 Sat by Pulse 98 99 Oximetry 09/16/18 09/16/18 09/16/18 07:00 07:30 08:00 Temperature Pulse Rate Respiratory 24 26 H 24 Rate Blood Pressure 190/128 192/132 Blood Pressure [Right] O2 Sat by Pulse 97 98 95 Oximetry 09/16/18 09/16/18 09/16/18 08:30 09:00 09:30 Temperature Pulse Rate Respiratory 25 H 19 26 H Rate Blood Pressure 176/124 172/119 171/120 Blood Pressure [Right] O2 Sat by Pulse 95 98 94 Oximetry 09/16/18 09/16/18 09/16/18 10:00 10:23 10:30 Temperature Pulse Rate 110 H Respiratory 26 H 16 21 Rate Blood Pressure 171/118 170/117 Blood Pressure 171/118 [Right] O2 Sat by Pulse 95 98 97 Oximetry 09/16/18 09/16/18 09/16/18 11:00 11:30 12:22 Temperature Pulse Rate 85 Respiratory 23 24 19 Rate Blood Pressure 183/120 188/114 188/114 Blood Pressure [Right] O2 Sat by Pulse 96 98 Oximetry 09/16/18 09/16/18 09/16/18 12:30 13:14 13:47 Temperature 98.1 F Pulse Rate 98 H 93 H 94 H Respiratory 16 Rate Blood Pressure 197/122 Blood Pressure 198/119 [Right] O2 Sat by Pulse 99 Oximetry 09/16/18 13:48 Temperature Pulse Rate 93 H Respiratory Rate Blood Pressure 197/122 Blood Pressure [Right] O2 Sat by Pulse Oximetry - Reevaluation(s) Reevaluation #1: 09/16/18 13:04 Differential diagnosis, including but not limited to: Pneumonia, urinary tract infection, diverticulitis, inflammatory bowel syndrome, hypertensive urgency Assessment and plan: 58-year-old gentleman with leukocytosis, improved hemoglobin, hematocrit when compared to prior, colonoscopy in April which was basically unremarkable, mild renal insufficiency, improving from prior, also found to have heart rate greater than 90, low-grade rectal temperature of 100, suspicious for diverticulitis. The patient has no pain at this time. He does have grossly bloody stool noted on his exam. He will be treated for sepsis empirically with IV fluids, and appropriate targeted antibiotic therapy. A noncontrast CT scan of the abdomen pelvis has been ordered. We will admit the patient to the medical service. High suspicion for diverticular disease. Reevaluation #2: 09/16/18 13:49 CT scan suggests colitis, diverticulitis without discrete abscess or perforation. Hospital physician was paged to arrange admission. Reevaluation #3: 09/16/18 14:50 Dr. Lloyd to admit to the medical service. ED Medical Decision Making - Lab Data Result diagrams: 09/16/18 04:23 09/16/18 04:23 Vital Signs 09/16/18 09/16/18 09/16/18 04:06 05:00 05:31 Temperature 99.2 F Pulse Rate 93 H 92 H 94 H Respiratory 24 22 28 H Rate Blood Pressure 201/130 198/129 198/129 Blood Pressure 201/130 [Right] O2 Sat by Pulse 98 96 98 Oximetry 09/16/18 09/16/18 09/16/18 05:51 06:00 06:31 Temperature Pulse Rate 94 H 87 91 H Respiratory 23 26 H Rate Blood Pressure 181/119 185/127 185/127 Blood Pressure [Right] O2 Sat by Pulse 98 99 Oximetry 09/16/18 09/16/18 09/16/18 07:00 07:30 08:00 Temperature Pulse Rate Respiratory 24 26 H 24 Rate Blood Pressure 190/128 192/132 Blood Pressure [Right] O2 Sat by Pulse 97 98 95 Oximetry 09/16/18 09/16/18 09/16/18 08:30 09:00 09:30 Temperature Pulse Rate Respiratory 25 H 19 26 H Rate Blood Pressure 176/124 172/119 171/120 Blood Pressure [Right] O2 Sat by Pulse 95 98 94 Oximetry 09/16/18 09/16/18 09/16/18 10:00 10:23 10:30 Temperature Pulse Rate 110 H Respiratory 26 H 16 21 Rate Blood Pressure 171/118 170/117 Blood Pressure 171/118 [Right] O2 Sat by Pulse 95 98 97 Oximetry 09/16/18 09/16/18 09/16/18 11:00 11:30 12:22 Temperature Pulse Rate 85 Respiratory 23 24 19 Rate Blood Pressure 183/120 188/114 188/114 Blood Pressure [Right] O2 Sat by Pulse 96 98 Oximetry 09/16/18 12:30 Temperature Pulse Rate 98 H Respiratory Rate Blood Pressure Blood Pressure [Right] O2 Sat by Pulse Oximetry Lab Results 09/16/18 09/16/18 09/16/18 Range/Units 04:23 04:23 04:35 WBC 17.0 H (4.5-11.0) K/mm3 RBC 5.74 H (3.65-5.03) M/mm3 Hgb 15.3 H (11.8-15.2) gm/dl Hct 45.9 H (35.5-45.6) % MCV 80 L (84-94) fl MCH 27 L (28-32) pg MCHC 33 (32-34) % RDW 17.7 H (13.2-15.2) % Plt Count 163 (140-440) K/mm3 Lymph % (Auto) 7.5 L (13.4-35.0) % [place] % (Auto) 6.1 (0.0-7.3) % Eos % (Auto) 0.1 (0.0-4.3) % Baso % (Auto) 0.5 (0.0-1.8) % Lymph # 1.3 (1.2-5.4) K/mm3 [place] # 1.0 H (0.0-0.8) K/mm3 Eos # 0.0 (0.0-0.4) K/mm3 Baso # 0.1 (0.0-0.1) K/mm3 Seg Neutrophils % 85.8 H (40.0-70.0) % Seg Neutrophils # 14.6 H (1.8-7.7) K/mm3 PT 13.1 (12.2-14.9) Sec. INR 0.94 (0.87-1.13) APTT 29.8 (24.2-36.6) Sec. Sodium 136 L (137-145) mmol/L Potassium 4.3 (3.6-5.0) mmol/L Chloride 102.4 (98-107) mmol/L Carbon Dioxide 20 L (22-30) mmol/L Anion Gap 18 mmol/L BUN 27 H (9-20) mg/dL Creatinine 1.6 H (0.8-1.5) mg/dL Estimated GFR 54 ml/min BUN/Creatinine Ratio 17 % Glucose 274 H (75-100) mg/dL Lactic Acid (0.7-2.0) mmol/L Calcium 8.5 (8.4-10.2) mg/dL Total Creatine Kinase (55-170) units/L Urine Color (Yellow) Urine Turbidity (Clear) Urine pH (5.0-7.0) Ur Specific [place] (1.003-1.030) Urine Protein (Negative) mg/dL Urine Glucose (UA) (Negative) mg/dL Urine Ketones (Negative) mg/dL Urine Blood (Negative) Urine Nitrite (Negative) Urine Bilirubin (Negative) Urine Urobilinogen (<2.0) mg/dL Ur Leukocyte Esterase (Negative) Urine WBC (Auto) (0.0-6.0) /HPF Urine RBC (Auto) (0.0-6.0) /HPF U Epithel Cells (Auto) (0-13.0) /HPF Urine Bacteria (Auto) (Negative) /HPF Urine Mucus /HPF Blood Type Antibody Screen 09/16/18 09/16/18 09/16/18 Range/Units 04:35 10:39 10:39 WBC (4.5-11.0) K/mm3 RBC (3.65-5.03) M/mm3 Hgb (11.8-15.2) gm/dl Hct (35.5-45.6) % MCV (84-94) fl MCH (28-32) pg MCHC (32-34) % RDW (13.2-15.2) % Plt Count (140-440) K/mm3 Lymph % (Auto) (13.4-35.0) % [place] % (Auto) (0.0-7.3) % Eos % (Auto) (0.0-4.3) % Baso % (Auto) (0.0-1.8) % Lymph # (1.2-5.4) K/mm3 [place] # (0.0-0.8) K/mm3 Eos # (0.0-0.4) K/mm3 Baso # (0.0-0.1) K/mm3 Seg Neutrophils % (40.0-70.0) % Seg Neutrophils # (1.8-7.7) K/mm3 PT (12.2-14.9) Sec. INR (0.87-1.13) APTT (24.2-36.6) Sec. Sodium (137-145) mmol/L Potassium (3.6-5.0) mmol/L Chloride (98-107) mmol/L Carbon Dioxide (22-30) mmol/L Anion Gap mmol/L BUN (9-20) mg/dL Creatinine (0.8-1.5) mg/dL Estimated GFR ml/min BUN/Creatinine Ratio % Glucose (75-100) mg/dL Lactic Acid 1.80 (0.7-2.0) mmol/L Calcium (8.4-10.2) mg/dL Total Creatine Kinase 43 L (55-170) units/L Urine Color (Yellow) Urine Turbidity (Clear) Urine pH (5.0-7.0) Ur Specific [place] (1.003-1.030) Urine Protein (Negative) mg/dL Urine Glucose (UA) (Negative) mg/dL Urine Ketones (Negative) mg/dL Urine Blood (Negative) Urine Nitrite (Negative) Urine Bilirubin (Negative) Urine Urobilinogen (<2.0) mg/dL Ur Leukocyte Esterase (Negative) Urine WBC (Auto) (0.0-6.0) /HPF Urine RBC (Auto) (0.0-6.0) /HPF U Epithel Cells (Auto) (0-13.0) /HPF Urine Bacteria (Auto) (Negative) /HPF Urine Mucus /HPF Blood Type O POSITIVE Antibody Screen Negative 09/16/18 Range/Units 11:33 WBC (4.5-11.0) K/mm3 RBC (3.65-5.03) M/mm3 Hgb (11.8-15.2) gm/dl Hct (35.5-45.6) % MCV (84-94) fl MCH (28-32) pg MCHC (32-34) % RDW (13.2-15.2) % Plt Count (140-440) K/mm3 Lymph % (Auto) (13.4-35.0) % [place] % (Auto) (0.0-7.3) % Eos % (Auto) (0.0-4.3) % Baso % (Auto) (0.0-1.8) % Lymph # (1.2-5.4) K/mm3 [place] # (0.0-0.8) K/mm3 Eos # (0.0-0.4) K/mm3 Baso # (0.0-0.1) K/mm3 Seg Neutrophils % (40.0-70.0) % Seg Neutrophils # (1.8-7.7) K/mm3 PT (12.2-14.9) Sec. INR (0.87-1.13) APTT (24.2-36.6) Sec. Sodium (137-145) mmol/L Potassium (3.6-5.0) mmol/L Chloride (98-107) mmol/L Carbon Dioxide (22-30) mmol/L Anion Gap mmol/L BUN (9-20) mg/dL Creatinine (0.8-1.5) mg/dL Estimated GFR ml/min BUN/Creatinine Ratio % Glucose (75-100) mg/dL Lactic Acid (0.7-2.0) mmol/L Calcium (8.4-10.2) mg/dL Total Creatine Kinase (55-170) units/L Urine Color Yellow (Yellow) Urine Turbidity Clear (Clear) Urine pH 6.0 (5.0-7.0) Ur Specific [place] 1.026 (1.003-1.030) Urine Protein >500 (Negative) mg/dL Urine Glucose (UA) >=500 (Negative) mg/dL Urine Ketones Neg (Negative) mg/dL Urine Blood Neg (Negative) Urine Nitrite Neg (Negative) Urine Bilirubin Neg (Negative) Urine Urobilinogen < 2.0 (<2.0) mg/dL Ur Leukocyte Esterase Neg (Negative) Urine WBC (Auto) 2.0 (0.0-6.0) /HPF Urine RBC (Auto) 5.0 (0.0-6.0) /HPF U Epithel Cells (Auto) < 1.0 (0-13.0) /HPF Urine Bacteria (Auto) 1+ (Negative) /HPF Urine Mucus Few /HPF Blood Type Antibody Screen - Radiology Data Radiology results: pending, report reviewed, image reviewed X-ray of the chest is negative for acute disease. Critical care attestation.: If time is entered above; I have spent that time in minutes in the direct care of this critically ill patient, excluding procedure time. ED Disposition Clinical Impression: Hypertensive urgency, malignant, SIRS (systemic inflammatory response syndrome), Lower GI bleed Disposition: OP ADMIT IP TO THIS HOSP Is pt being admited?: Yes Condition: Fair Referrals: CANDIDO PATIÑO MD [Primary Care Provider] - 3-5 Days Forms: Accompanied Note
[2018-09-16] MEDS ORDERED: FLAGYL 500 MG/100 ML 500 MG/100 ML BAG IV NR (11:00)
[2018-09-16] MEDS ORDERED: FLAGYL 500 MG/100 ML 500 MG/100 ML BAG IV ONE ×2 (11:07→22:28)
[2018-09-16 12:12] LABS: Bacteria,Urine 1+ /HPF (Negative); Bilirubin,Urine NEG (Negative); Blood,Urine NEG (Negative); Color,Urine Yellow (Yellow); Mucus,Urine FEW /HPF; Protein,Urine >500 mg/dL (Negative); Urobilinogen,Urine < 2.0 mg/dL (<2.0)
--- NOTE | 2018-09-16 12:22 | XRay Report ---
PROCEDURE: XR CHEST 1V AP TECHNIQUE: Chest radiograph single view. HISTORY: SEPSIS` COMPARISONS: 12/14/2017 . FINDINGS: Heart: Normal. Mediastinum/Vessels: Normal. Lungs/Pleural space: Normal. Bony thorax: No acute osseous abnormality. Life support devices: None. IMPRESSION: No acute cardiopulmonary abnormality. This document is electronically signed by Oliver Rosenbaum MD., September 16 2018 12:20:20 PM ET
[2018-09-16] MEDS ORDERED: CEPHULAC PR PRN (13:13)
[2018-09-16] MEDS ORDERED: POTASSIUM CHLORIDE 20 MEQ PO SCH (13:15)
[2018-09-16] MEDS ORDERED: NON-FORMULARY (Labetalol Hcl [Labetalol Hcl] 300 MG) PO SCH (13:15)
[2018-09-16] MEDS ORDERED: NON-FORMULARY (Losartan [Cozaar] 100 MG) PO SCH (13:15)
--- NOTE | 2018-09-16 13:45 | Cat Scan Report ---
PROCEDURE: CT ABDOMEN PELVIS WO CON CT DOSE LENGTH PRODUCT: 1603.34 mGy-cm. HISTORY: SEPSIS COLITIS COMPARISONS: None currently available. FINDINGS: Abdomen: Middle bibasilar discoid subsegmental atelectasis. Partially imaged cardiomegaly. No pericardial effusion. Coronary artery disease. Liver, gallbladder, stomach, spleen, pancreas, and adrenals are unremarkable. Kidneys: No hydronephrosis. No nephroureteral stones. Punctate right mid renal cortical calculations are nonspecific. Minimal bilateral perinephric stranding. No aneurysm. Mild atherosclerotic disease. IVC is unremarkable. There is no periaortic or retroperitoneal adenopathy or mass. Long segment wall thickening of the descending colon down to the rectum which appears more prominent at the distal sigmoid colon and rectum. Surrounding stranding noted. Mural stratification identified. Mild to moderate stool in the remainder of the colon without wall thickening. No perforation. Terminal ileum is unremarkable. The appendix is not identified. There are no pericecal inflammatory changes. Small bowel loops are unremarkable. No obstructive pattern. No air-fluid levels. Stranding of the mesentery around the descending colon, sigmoid colon, and rectum. Trace fluid in bot h colic gutters and around the inflamed colon. No free air. Mild anasarca. Pelvis: Limited CT images of the prostate are unremarkable. Bladder: Collapsed around a Nichole catheter and not well evaluated. Possible wall thickening. No disti nct stone. There is no pelvic mass or adenopathy. Inguinal regions are unremarkable. Bones: No suspicious osseous lesions on this limited examination of the skeleton. Metastatic disease better evaluated with bone scan. Degenerative changes are in the spine. IMPRESSION: * Long segment inflammation of the descending colon down to the rectum. Suspect colitis which may be inflammatory, infectious, or possibly ischemic. Mural stratification may represent edema or possible developing intramural abscesses. No perforation or extraluminal abscess. Short-term interval follow- up with contrast may be helpful if clinically indicated. This document is electronically signed by Mehrdad Contreras MD., September 16 2018 01:43:13 PM ET
[2018-09-16] MEDS: NORMODYNE PO SCH ×2 (13:47→22:50)
[2018-09-16] MEDS: PROCARDIA XL PO SCH (13:47)
[2018-09-16] MEDS: GLUCOTROL PO SCH (13:48)
[2018-09-16] MEDS: COZAAR PO SCH (13:48)
--- NOTE | 2018-09-16 15:06 | History and Physical Report ---
History of Present Illness Chief complaint: Im bleeding when I go to the bathroom, and my blood pressure is high History of present illness: 58 YO Male SNF Resident at [facility] with CVA with LHP, DM, HTN, HLD, Multiple Myeloma, CKD, Iron Deficiency Anemia, presents to ED for evaluation. Pt states that he has experienced several episodes of blood in his stool over the past 48 hours as well as high blood pressure. SNF staff also reports that the patient passed multiple blood clots. EMS notified and patient transported to [facility]. Pt seen and evaluated in ED and found to have Sepsis, GI Bleeding, Acute Renal Failure, and colitis. GI consulted in ED. pt admitted to [facility]. Surgery consulted as well. Pt denies fever, chills, CP, Palpitations, NVD, Trauma, Productive cough, and recent ill contacts, ingestion of food/water from new or different sourced. Pt states that nothing is wrong, and that he feels "just fine". However patient grimaces with movement, but denies pain upon abdominal exam. Pt is at bedside during exam and interview, and states that patient does not complain much. Previous admission 12/02/17 reviewed. All listed medication reconciled aat time of admission. Primary care Dr.: Dr. Mallory Nephrology: Dr. Barr Gastroenterology: Dr. Aceves Past History Past Medical History: cancer, diabetes, hypertension, hyperlipidemia, renal failure, stroke Past Surgical History: No surgical history, Other (reviewed) Social history: . denies: smoking, alcohol abuse Family history: diabetes, hypertension Medications and Allergies Allergies Allergy/AdvReac Type Severity Reaction Status Date / Time No Known Allergies Allergy Verified 03/27/18 10:16 Home Medications Medication Instructions Recorded Confirmed Last Taken Type Labetalol HCl 300 mg PO BID 01/23/16 09/16/18 04/30/18 History cloNIDine [Catapres] 0.2 mg PO BID 01/23/16 09/16/18 04/30/18 History NIFEdipine XL [Procardia Xl] 90 mg PO QDAY #30 tablet 09/13/16 09/16/18 04/30/18 Rx Ergocalciferol [Vitamin D2] 1 cap PO QWEEK 12/12/17 09/16/18 Unknown History Furosemide [Lasix TAB] 40 mg PO QDAY 12/12/17 09/16/1818 History Insulin Glargine,Hum.rec.anlog 15 units SUB-Q HS 12/12/17 09/16/18 12/12/17 History [Basaglar Kwikpen U-100] Insulin Glargine,Hum.rec.anlog 30 units SUB-Q QPM 12/12/17 09/16/18 04/30/18 History [Basaglar Kwikpen U-100] Lactulose [Constulose] 10 gm PO DAILY PRN 12/12/17 09/16/18 04/30/18 History Losartan [Cozaar] 100 mg PO QDAY 12/12/17 09/16/18 03/26/18 History Multivitamin Tab [Multiple Vitamin 1 each PO QDAY 12/12/17 09/16/18 04/30/18 History TAB (Theragran)] Potassium Chloride [K-Tab ER] 20 meq PO QDAY 12/12/17 09/16/18 04/30/18 History Pravastatin [Pravachol] 20 mg PO DAILY 12/12/17 09/16/18 04/30/18 History glipiZIDE [Glipizide] 10 mg PO QDAY 12/12/17 09/16/18 04/30/18 History Insulin Glargine [Lantus VIAL] 8 units SUB-Q QHS units 12/18/17 09/16/18 03/26/18 Rx Lispro Insulin [Humalog] 0 unit SUB-Q ACHS 09/16/18 09/16/18 Unknown History Active Meds: Active Medications Furosemide (Lasix) 40 mg PO DAILY@0600 [facility] Glipizide (Glucotrol) 10 mg PO QDDIAB [facility] Last Admin: 09/16/18 13:48 Dose: 10 mg Documented by: Insulin Glargine (Lantus) 8 units SUB-Q QHS JUAN ALBERTO Labetalol HCl (Normodyne) 300 mg PO BID [facility] Last Admin: 09/16/18 13:47 Dose: 300 mg Documented by: Lactulose (Cephulac) 10 gm SC DAILY PRN PRN Reason: Constipation Losartan Potassium (Cozaar) 100 mg PO QDAY [facility] Last Admin: 09/16/18 13:48 Dose: 100 mg Documented by: Nifedipine (Procardia Xl) 90 mg PO QDAY [facility] Last Admin: 09/16/18 13:47 Dose: 90 mg Documented by: Potassium Chloride (K-Dur) 20 meq PO QDAY [facility] Pravastatin Sodium (Pravachol) 20 mg PO QHS [facility] Review of Systems Constitutional: no weight loss, no weight gain, no fever Ears, nose, mouth and throat: no ear pain, no ear discharge, no tinnitis, no decreased hearing, no nose pain, no nasal congestion Cardiovascular: no chest pain, no orthopnea, no palpitations, no edema, no lightheadedness Respiratory: no cough, no cough with sputum, no hemoptysis, no shortness of breath Gastrointestinal: other (blood in stool), no abdominal pain, no nausea, no vomiting, no diarrhea, no constipation Genitourinary Male: no hematuria, no flank pain, no discharge, no urinary hesitancy Rectal: no pain, no incontinence, no bleeding Musculoskeletal: no neck pain, no shooting arm pain, no arm numbness/tingling, no low back pain, no shooting leg pain Integumentary: no rash, no pruritis, no redness, no sores, no wounds Neurological: no head injury, no transient paralysis, no paralysis, no weakness, no parathesias Psychiatric: no anxiety, no memory loss, no change in sleep habits, no sleep disturbances, no hypersomnia, no change in appetite, no suicidal ideation Endocrine: no cold intolerance, no heat intolerance, no polyphagia Hematologic/Lymphatic: no easy bruising, no easy bleeding, no lymphadenopathy, no lymphedema Allergic/Immunologic: no urticaria, no allergic rhinitis, no wheezing, no persistent infections, no anaphylaxis, no angioedema Exam - Constitutional Vitals: Temp Pulse Resp BP Pulse Ox 98.1 F 93 H 16 197/122 99 09/16/18 13:14 09/16/18 13:48 09/16/18 13:14 09/16/18 13:48 09/16/18 13:14 General appearance: Present: mild distress, obese - EENT Eyes: Present: PERRL ENT: hearing intact, clear oral mucosa - Neck Neck: Present: supple, normal ROM - Respiratory Respiratory effort: normal Respiratory: bilateral: CTA - Cardiovascular Heart Sounds: Present: S1 & S2. Absent: rub, click - Extremities Extremities: pulses symmetrical, No edema Peripheral Pulses: within normal limits - Abdominal General gastrointestinal: Present: soft, non-tender, non-distended, normal bowel sounds. Absent: hepatomegaly, splenomegaly, mass Male genitourinary: Present: normal - Integumentary Integumentary: Present: clear, warm, dry - Musculoskeletal Musculoskeletal: generalized weakness - Psychiatric Psychiatric: appropriate mood/affect, intact judgment & insight - Neurologic Neurologic: CNII-XII intact, focal deficits, no moves all extremities, no gait normal Results - Labs CBC & Chem 7: 09/16/18 04:23 09/16/18 04:23 Labs: Abnormal lab results 09/16/18 09/16/18 09/16/18 Range/Units 04:23 04:23 10:39 WBC 17.0 H (4.5-11.0) K/mm3 RBC 5.74 H (3.65-5.03) M/mm3 Hgb 15.3 H (11.8-15.2) gm/dl Hct 45.9 H (35.5-45.6) % MCV 80 L (84-94) fl MCH 27 L (28-32) pg RDW 17.7 H (13.2-15.2) % Lymph % (Auto) 7.5 L (13.4-35.0) % [place] # 1.0 H (0.0-0.8) K/mm3 Seg Neutrophils % 85.8 H (40.0-70.0) % Seg Neutrophils # 14.6 H (1.8-7.7) K/mm3 Sodium 136 L (137-145) mmol/L Carbon Dioxide 20 L (22-30) mmol/L BUN 27 H (9-20) mg/dL Creatinine 1.6 H (0.8-1.5) mg/dL Glucose 274 H (75-100) mg/dL Lactic Acid (0.7-2.0) mmol/L Total Creatine Kinase 43 L (55-170) units/L 09/16/18 Range/Units 14:09 WBC (4.5-11.0) K/mm3 RBC (3.65-5.03) M/mm3 Hgb (11.8-15.2) gm/dl Hct (35.5-45.6) % MCV (84-94) fl MCH (28-32) pg RDW (13.2-15.2) % Lymph % (Auto) (13.4-35.0) % [place] # (0.0-0.8) K/mm3 Seg Neutrophils % (40.0-70.0) % Seg Neutrophils # (1.8-7.7) K/mm3 Sodium (137-145) mmol/L Carbon Dioxide (22-30) mmol/L BUN (9-20) mg/dL Creatinine (0.8-1.5) mg/dL Glucose (75-100) mg/dL Lactic Acid 2.10 H* (0.7-2.0) mmol/L Total Creatine Kinase (55-170) units/L Assessment and Plan - Patient Problems (1) Sepsis Current Visit: No Status: Acute Qualifiers: Sepsis type: sepsis due to unspecified organism Qualified Code(s): A41.9 - Sepsis, unspecified organism Plan to address problem: PT admitted to [facility], Pt initiated on sepsis protocol: IV antibiotic therapy, IVF resuscitation therapy, CT Abdomen pelvis, serial lactic acid level, CBC, CMP, serial abdominal exam, blood cultures, urinalysis, (2) Hypertensive urgency, malignant Current Visit: Yes Status: Acute Plan to address problem: monitor bp q shift, remote telemetry, resume prehospital medication, IV hydralazine prn, pain control. (3) Lower GI bleed Current Visit: Yes Status: Acute Plan to address problem: GI consulted, cbc, bmp, IV PPI therapy, No transfusion at this time. Surgery consulted as well, (4) Acute renal failure Current Visit: No Status: Acute Qualifiers: Acute renal failure type: with acute tubular necrosis Qualified Code(s): N17.0 - Acute kidney failure with tubular necrosis Plan to address problem: IVF resuscitation therapy, monitor uop q shift, repeat bmp to monitor serum creatnine, (5) Acidosis Current Visit: Yes Status: Acute Plan to address problem: IVF resuscitation therapy, serial lactic acid level. (6) Diabetes Current Visit: Yes Status: Acute Plan to address problem: AD diet, insulin, accu check (7) DVT prophylaxis Current Visit: No Status: Acute Plan to address problem: SCD to BLE while in bed.
[2018-09-16] MEDS ORDERED: SODIUM CHLORIDE FLUSH SYRINGE 10 ML IV PRN (15:12)
[2018-09-16] MEDS ORDERED: PROVENTIL IH PRN (15:12)
[2018-09-16] MEDS ORDERED: APRESOLINE IV PRN (15:19)
[2018-09-16] MEDS ORDERED: MORPHINE IV PRN (15:40)
[2018-09-16] MEDS ORDERED: MORPHINE ONE (16:46)
[2018-09-16] MEDS: LASIX PO SCH (17:01)
[2018-09-16] MEDS: K-DUR PO SCH (17:01)
[2018-09-16] MEDS ORDERED: APRESOLINE ONE (17:57)
--- NOTE | 2018-09-16 19:06 | Vascular Lab Report ---
VL VENOUS DUPLEX LE LT CLINICAL INDICATION: Male, 58 years of age. swelling . COMPARISON: None TECHNIQUE: Multiple josue-scale, color-flow and doppler waveform images were saved for the permanent digital medi domi record. FINDINGS: The deep veins of the left lower extremity are normal in appearance throughout. Normal venous flow a nd compressibility is noted. The visualized veins of the calves are also normal. IMPRESSION: No evidence of deep venous thrombosis of left lower extremity. This document is electronically signed by Mariaa Stevens DO., September 16 2018 07:03:28 PM ET
[2018-09-16] MEDS ORDERED: NORMODYNE ONE (22:28)
[2018-09-16] MEDS ORDERED: PROTONIX IV ONE (22:29)
[2018-09-16] MEDS ORDERED: CATAPRES ONE (22:29)
[2018-09-16] MEDS: SODIUM CHLORIDE FLUSH SYRINGE 10 ML IV SCH (22:50)
[2018-09-16] MEDS: FLAGYL 500 MG/100 ML 500 MG/100 ML BAG IV SCH (22:50)
[2018-09-16] MEDS: CATAPRES PO SCH (22:50)
[2018-09-16] MEDS: PROTONIX IV SCH (22:50)
[2018-09-16] MEDS: PRAVACHOL PO SCH (23:40)
[2018-09-16] MEDS: LANTUS SUB-Q SCH (23:40)
[2018-09-17 06:29] LABS: Basophils # (Auto) 0.1 K/mm3 (0.0-0.1); Basophils % (Auto) 0.4 % (0.0-1.8); Eosinophils # (Auto) 0.1 K/mm3 (0.0-0.4); Eosinophils % (Auto) 0.3 % (0.0-4.3); Hematocrit 38.5 % (35.5-45.6); Hemoglobin 12.4 gm/dl (11.8-15.2); Lymphocytes # (Auto) 1.2 K/mm3 (1.2-5.4); Lymphocytes % (Auto) 7.3 % (13.4-35.0); Mean Corpuscular HGB Conc 32 % (32-34); Mean Corpuscular Volume 81 fl (84-94); Monocytes # (Auto) 1.2 K/mm3 (0.0-0.8); Monocytes % (Auto) 7.2 % (0.0-7.3); Platelet Count 114 K/mm3 (140-440); Red Blood Count 4.72 M/mm3 (3.65-5.03); Red Cell Distribution Width 17.5 % (13.2-15.2)
[2018-09-17] MEDS: FLAGYL 500 MG/100 ML 500 MG/100 ML BAG IV SCH ×3 (06:30→22:17)
[2018-09-17] MEDS: LASIX PO SCH (06:31)
[2018-09-17] MEDS ORDERED: FLAGYL 500 MG/100 ML 500 MG/100 ML BAG IV ONE (06:46)
[2018-09-17 07:17] LABS: Calcium 7.8 mg/dL (8.4-10.2)
[2018-09-17] MEDS ORDERED: LEVAQUIN 750MG/150ML 750 MG/150 ML BAG IV SCH (10:00)
[2018-09-17] MEDS ORDERED: VITAMIN D2 PO SCH (10:00)
[2018-09-17] MEDS: PROTONIX IV SCH ×2 (11:49→22:15)
[2018-09-17] MEDS: K-DUR PO SCH ×2 (11:50→11:52)
[2018-09-17] MEDS: THERAGRAN Tab PO SCH (11:50)
[2018-09-17] MEDS: NORMODYNE PO SCH (13:52)
[2018-09-17] MEDS: CATAPRES PO SCH (13:52)
[2018-09-17] MEDS: COZAAR PO SCH (13:52)
[2018-09-17] MEDS: PROCARDIA XL PO SCH (13:52)
[2018-09-17] MEDS: SODIUM CHLORIDE FLUSH SYRINGE 10 ML IV SCH ×2 (13:53→22:19)
--- NOTE | 2018-09-17 14:06 | Progress Note ---
Assessment and Plan Assessment and plan: 58-year-old man with past medical history of dilated colon consistent with pseudoobstruction, iron deficiency anemia who presents from his [facility]. He was sent for elevated blood pressure and blood in his stool. Past medical history also includes hypertension, diabetes, CVA, hyperlipidemia and chronic kidney disease CT abdomen and pelvis -suspicious for colitis Diagnoses acute colitis Acute kidney injury/vasomotor nephropathy SIRS Hyperglycemia GI bleed acute blood loss, hg dropped from 15 to 12 Plan iv abx optimize BP meds transfuse as needed optimize insulins Case discussed with general surgery, continue antibiotics and keep patient nothing by mouth GI consult pending dvt ppx scds History Interval history: Patient complained of some bloody stools Review of systems Constitutional: No fevers, no malaise, no joint pains CVS: No chest pain, no orthopnea, no dyspnea on exertion, no pedal edema GI: No abdominal pain, no diarrhea, no vomiting, no constipation Respiratory: No shortness of breath, no wheezing, no coughing Hospitalist Physical - Physical exam Narrative exam: General.: Appears well, no distress, nontoxic HEENT: Moist mucous membranes, extraocular muscles intact, no lymphadenopathy Neck: supple Cardiac: S1-S2 heard Lungs: clear to auscultation bilaterally Abdomen: soft , nontender, distended, Extremities: no edema clubbing or cyanosis Skin: no rash or lesions Neurologic: Patient is aphasic Psych: calm, and cooperative - Constitutional Vitals: Temp Pulse Resp BP Pulse Ox 98.8 F 96 H 19 93/67 93 09/17/18 12:00 09/17/18 10:00 09/17/18 09:00 09/17/18 09:00 09/17/18 09:00 General appearance: Present: mild distress, obese Results - Labs CBC & Chem 7: 09/18/18 05:28 09/18/18 05:28 Labs: Laboratory Last Values WBC 16.9 K/mm3 (4.5-11.0) H 09/17/18 06:12 RBC 4.72 M/mm3 (3.65-5.03) 09/17/18 06:12 Hgb 12.4 gm/dl (11.8-15.2) 09/17/18 06:12 Hct 38.5 % (35.5-45.6) D 09/17/18 06:12 MCV 81 fl (84-94) L 09/17/18 06:12 MCH 26 pg (28-32) L 09/17/18 06:12 MCHC 32 % (32-34) 09/17/18 06:12 RDW 17.5 % (13.2-15.2) H 09/17/18 06:12 Plt Count 114 K/mm3 (140-440) L 09/17/18 06:12 Lymph % (Auto) 7.3 % (13.4-35.0) L 09/17/18 06:12 [place] % (Auto) 7.2 % (0.0-7.3) 09/17/18 06:12 Eos % (Auto) 0.3 % (0.0-4.3) 09/17/18 06:12 Baso % (Auto) 0.4 % (0.0-1.8) 09/17/18 06:12 Lymph # 1.2 K/mm3 (1.2-5.4) 09/17/18 06:12 [place] # 1.2 K/mm3 (0.0-0.8) H 09/17/18 06:12 Eos # 0.1 K/mm3 (0.0-0.4) 09/17/18 06:12 Baso # 0.1 K/mm3 (0.0-0.1) 09/17/18 06:12 Seg Neutrophils % 84.8 % (40.0-70.0) H 09/17/18 06:12 Seg Neutrophils # 14.3 K/mm3 (1.8-7.7) H 09/17/18 06:12 PT 13.1 Sec. (12.2-14.9) 09/16/18 04:35 INR 0.94 (0.87-1.13) 09/16/18 04:35 APTT 29.8 Sec. (24.2-36.6) 09/16/18 04:35 Sodium 140 mmol/L (137-145) 09/17/18 06:12 Potassium 4.6 mmol/L (3.6-5.0) 09/17/18 06:12 Chloride 110.4 mmol/L (98-107) H 09/17/18 06:12 Carbon Dioxide 17 mmol/L (22-30) L 09/17/18 06:12 Anion Gap 17 mmol/L 09/17/18 06:12 BUN 29 mg/dL (9-20) H 09/17/18 06:12 Creatinine 2.1 mg/dL (0.8-1.5) H 09/17/18 06:12 Estimated GFR 39 ml/min 09/17/18 06:12 BUN/Creatinine Ratio 14 % 09/17/18 06:12 Glucose 309 mg/dL (75-100) H 09/17/18 06:12 POC Glucose 289 (70-105) H 09/17/18 08:14 Lactic Acid 1.00 mmol/L (0.7-2.0) 09/16/18 23:19 Calcium 7.8 mg/dL (8.4-10.2) L 09/17/18 06:12 Total Creatine Kinase 43 units/L (55-170) L 09/16/18 10:39 NT-Pro-B Natriuret Pep 1592 pg/mL (0-900) H 09/16/18 16:44 Urine Color Yellow (Yellow) 09/16/18 11:33 Urine Turbidity Clear (Clear) 09/16/18 11:33 Urine pH 6.0 (5.0-7.0) 09/16/18 11:33 Ur Specific [place] 1.026 (1.003-1.030) 09/16/18 11:33 Urine Protein >500 mg/dL (Negative) 09/16/18 11:33 Urine Glucose (UA) >=500 mg/dL (Negative) 09/16/18 11:33 Urine Ketones Neg mg/dL (Negative) 09/16/18 11:33 Urine Blood Neg (Negative) 09/16/18 11:33 Urine Nitrite Neg (Negative) 09/16/18 11:33 Urine Bilirubin Neg (Negative) 09/16/18 11:33 Urine Urobilinogen < 2.0 mg/dL (<2.0) 09/16/18 11:33 Ur Leukocyte Esterase Neg (Negative) 09/16/18 11:33 Urine WBC (Auto) 2.0 /HPF (0.0-6.0) 09/16/18 11:33 Urine RBC (Auto) 5.0 /HPF (0.0-6.0) 09/16/18 11:33 U Epithel Cells (Auto) < 1.0 /HPF (0-13.0) 09/16/18 11:33 Urine Bacteria (Auto) 1+ /HPF (Negative) 09/16/18 11:33 Urine Mucus Few /HPF 09/16/18 11:33 Blood Type O POSITIVE 09/16/18 04:35 Antibody Screen Negative 09/16/18 04:35 Active Medications - Current Medications Current Medications: Generic Name Dose Route Start Last Admin Trade Name Freq PRN Reason Stop Dose Admin Albuterol 2.5 mg 09/16/18 15:12 Proventil IH Q3HRT PRN Shortness Of Breath Ergocalciferol 50,000 unit 09/17/18 10:00 09/17/18 13:55 Vitamin D2 PO Not Given Mo@1000 JUAN ALBERTO Glipizide 10 mg 09/16/18 14:00 09/16/18 13:48 Glucotrol PO 10 mg QDDIAB JUAN ALBERTO Administration Hydralazine HCl 10 mg 09/17/18 14:03 Apresoline IV Q6HR PRN BP >160/100 Levofloxacin/Dextrose 750 mg in 150 mls @ 100 mls/hr 09/17/18 10:00 09/17/18 11:49 Levaquin 750mg/150ml IV 100 mls/hr Q24HR JUAN ALBERTO Administration Protocol Metronidazole 500 mg in 100 mls @ 100 mls/hr 09/16/18 22:00 09/17/18 13:51 Flagyl 500 Mg/100 Ml IV 100 mls/hr Q8HR JUAN ALBERTO Administration Protocol Sodium Chloride 1,000 mls @ 125 mls/hr 09/17/18 15:00 Nacl 0.45% 1000 Ml IV DIRECT JUAN ALBERTO Insulin Glargine 8 units 09/16/18 22:00 09/16/18 23:40 Lantus SUB-Q 8 units QHS JUAN ALBERTO Administration Lactulose 10 gm 09/16/18 13:13 Cephulac [place] DAILY PRN Constipation Morphine Sulfate 2 mg 09/16/18 15:40 09/16/18 17:03 Morphine IV 2 mg Q4H PRN Administration Pain, Moderate (4-6) Multivitamins 1 each 09/17/18 10:00 09/17/18 11:50 Theragran Tab PO 1 each QDAY JUAN ALBERTO Administration Pantoprazole Sodium 40 mg 09/16/18 22:00 09/17/18 11:49 Protonix IV 40 mg BID JUAN ALBERTO Administration Potassium Chloride 20 meq 09/16/18 14:00 09/17/18 11:52 K-Dur PO Not Given QDAY JUAN ALBERTO Pravastatin Sodium 20 mg 09/16/18 22:00 09/16/18 23:40 Pravachol PO 20 mg QHS JUAN ALBERTO Administration Sodium Chloride 10 ml 09/16/18 22:00 09/17/18 13:53 Sodium Chloride Flush Syringe 10 Ml IV 10 ml BID JUAN ALBERTO Administration Sodium Chloride 10 ml 09/16/18 15:12 Sodium Chloride Flush Syringe 10 Ml IV PRN PRN LINE FLUSH
--- NOTE | 2018-09-17 14:44 | Gastroenterology Consultation ---
History of Present Illness - Reason for Consult Consult date: 09/17/18 colitis Requesting physician: DARIO LYN - History of Present Illness Patient is a 58 y/o male snf resident with PMH of CVA with LHP, DM, HTN, HLD, multiple myeloma, CKD, and GOMZE who was brought to ED for evaluation of blood in stool. Upon admission, abd CT showed colitis to which GI has been consulted. Patient is previously known to our service and followed by Dr. Aceves. He recent underwent an evaluation for anemia with EGD/colonoscopy that showed duodenitis, diverticulum of duodenal bulb c/w hx of PUD, and a dilated colon c/w pseudoobstruction (no mass or obstruction) with a pill cam pending as outpatient. H/H currently improved at 12.4/38.5. This morning patient was resting in bed w/o acute distress and at bedside. He reports BM x 1 so far today with bright red blood mixed with stool. No hematemesis or melena. Admits to occasional constipation but denies fever, wt loss, CP, SOB, abdominal pain, N/V, or diarrhea. No recent antibiotics, travel, ingestion of food/water from new or different source, or known ill contacts. Past History Past Medical History: cancer, diabetes, hypertension, hyperlipidemia, renal failure, stroke Past Surgical History: No surgical history, Other (reviewed) Social history: . denies: smoking, alcohol abuse Family history: diabetes, hypertension Medications and Allergies Allergies Allergy/AdvReac Type Severity Reaction Status Date / Time No Known Allergies Allergy Verified 03/27/18 10:16 Home Medications Medication Instructions Recorded Confirmed Last Taken Type Labetalol HCl 300 mg PO BID 01/23/16 09/16/18 04/30/18 History cloNIDine [Catapres] 0.2 mg PO BID 01/23/16 09/16/18 04/30/18 History NIFEdipine XL [Procardia Xl] 90 mg PO QDAY #30 tablet 09/13/16 09/16/18 04/30/18 Rx Ergocalciferol [Vitamin D2] 1 cap PO QWEEK 12/12/17 09/16/18 Unknown History Furosemide [Lasix TAB] 40 mg PO QDAY 12/12/17 09/16/18 04/30/18 History Insulin Glargine,Hum.rec.anlog 15 units SUB-Q HS 12/12/17 09/16/18 12/12/17 Hist ory [Basaglar Kwikpen U-100] Insulin Glargine,Hum.rec.anlog 30 units SUB-Q QPM 12/12/17 09/16/18 04/30/18 History [Basaglar Kwikpen U-100] Lactulose [Constulose] 10 gm PO DAILY PRN 12/12/17 09/16/18 04/30/18 History Losartan [Cozaar] 100 mg PO QDAY 12/12/17 09/16/18 03/26/18 History Multivitamin Tab [Multiple Vitamin 1 each PO QDAY 12/12/17 09/16/18 04/30/18 History TAB (Theragran)] Potassium Chloride [K-Tab ER] 20 meq PO QDAY 12/12/17 09/16/18 04/30/18 History Pravastatin [Pravachol] 20 mg PO DAILY 12/12/17 09/16/18 04/30/18 History glipiZIDE [Glipizide] 10 mg PO QDAY 12/12/17 09/16/18 04/30/18 History Insulin Glargine [Lantus VIAL] 8 units SUB-Q QHS units 12/18/17 09/16/18 03/26/18 Rx Lispro Insulin [Humalog] 0 unit SUB-Q ACHS 09/16/18 09/16/18 Unknown History Active Meds: Active Medications Albuterol (Proventil) 2.5 mg IH Q3HRT PRN PRN Reason: Shortness Of Breath Ergocalciferol (Vitamin D2) 50,000 unit PO Mo@1000 JUAN ALBERTO Last Admin: 09/17/18 13:55 Dose: Not Given Documented by: Glipizide (Glucotrol) 10 mg PO QDDIAB JUAN ALBERTO Last Admin: 09/16/18 13:48 Dose: 10 mg Documented by: Hydralazine HCl (Apresoline) 10 mg IV Q6HR PRN PRN Reason: BP >160/100 Metronidazole (Flagyl 500 Mg/100 Ml) 500 mg in 100 mls @ 100 mls/hr IV Q8HR JUAN ALBERTO; Protocol Last Admin: 09/17/18 13:51 Dose: 100 mls/hr Documented by: Sodium Chloride (Nacl 0.45% 1000 Ml) 1,000 mls @ 125 mls/hr IV DIRECT [facility] Levofloxacin/Dextrose (Levaquin 750mg/150ml) 750 mg in 150 mls @ 100 mls/hr IV Q48HR [facility]; Protocol Insulin Glargine (Lantus) 8 units SUB-Q QHS [facility] Last Admin: 09/16/18 23:40 Dose: 8 units Documented by: Lactulose (Cephulac) 10 gm [place] DAILY PRN PRN Reason: Constipation Morphine Sulfate (Morphine) 2 mg IV Q4H PRN PRN Reason: Pain, Moderate (4-6) Last Admin: 09/16/18 17:03 Dose: 2 mg Documented by: Multivitamins (Theragran Tab) 1 each PO QDAY [facility] Last Admin: 09/17/18 11:50 Dose: 1 each Documented by: Pantoprazole Sodium (Protonix) 40 mg IV BID [facility] Last Admin: 09/17/18 11:49 Dose: 40 mg Documented by: Potassium Chloride (K-Dur) 20 meq PO QDAY [facility] Last Admin: 09/17/18 11:52 Dose: Not Given Documented by: Pravastatin Sodium (Pravachol) 20 mg PO QHS [facility] Last Admin: 09/16/18 23:40 Dose: 20 mg Documented by: Sodium Chloride (Sodium Chloride Flush Syringe 10 Ml) 10 ml IV BID [facility] Last Admin: 09/17/18 13:53 Dose: 10 ml Documented by: Sodium Chloride (Sodium Chloride Flush Syringe 10 Ml) 10 ml IV PRN PRN PRN Reason: LINE FLUSH medications reviewed/updated as required Review of Systems - Review of Systems All systems: negative Gastrointestinal: hematochezia, no abdominal pain, no nausea, no vomiting, no hematemesis, no melena Exam - Constitutional Vital Signs: Temp Pulse Resp BP Pulse Ox 98.8 F 96 H 19 93/67 93 09/17/18 12:00 09/17/18 10:00 09/17/18 09:00 09/17/18 09:00 09/17/18 09:00 General appearance: no acute distress - EENT Eyes: PERRL, EOM intact ENT: hearing intact - Respiratory Respiratory: bilateral: CTA (anterior) - Cardiovascular Rhythm: regular - Gastrointestinal General gastrointestinal: Present: soft, non-tender, distended (slightly), normal bowel sounds - Labs CBC & Chem 7: 09/17/18 06:12 09/17/18 06:12 Lab Results: Laboratory Results - last 24 hr 09/16/18 09/16/18 09/16/18 14:09 16:44 16:44 WBC RBC Hgb Hct MCV MCH MCHC RDW Plt Count Lymph % (Auto) [place] % (Auto) Eos % (Auto) Baso % (Auto) Lymph # [place] # Eos # Baso # Seg Neutrophils % Seg Neutrophils # Sodium Potassium Chloride Carbon Dioxide Anion Gap BUN Creatinine Estimated GFR BUN/Creatinine Ratio Glucose POC Glucose Lactic Acid 2.10 H* 1.70 Calcium NT-Pro-B Natriuret Pep 1592 H 09/16/18 09/16/18 09/16/18 19:39 23:19 23:40 WBC RBC Hgb Hct MCV MCH MCHC RDW Plt Count Lymph % (Auto) [place] % (Auto) Eos % (Auto) Baso % (Auto) Lymph # [place] # Eos # Baso # Seg Neutrophils % Seg Neutrophils # Sodium Potassium Chloride Carbon Dioxide Anion Gap BUN Creatinine Estimated GFR BUN/Creatinine Ratio Glucose POC Glucose 233 H Lactic Acid 1.00 1.00 Calcium NT-Pro-B Natriuret Pep 09/17/18 09/17/18 09/17/18 06:12 06:12 08:14 WBC 16.9 H RBC 4.72 Hgb 12.4 Hct 38.5 D MCV 81 L MCH 26 L MCHC 32 RDW 17.5 H Plt Count 114 L Lymph % (Auto) 7.3 L [place] % (Auto) 7.2 Eos % (Auto) 0.3 Baso % (Auto) 0.4 Lymph # 1.2 [place] # 1.2 H Eos # 0.1 Baso # 0.1 Seg Neutrophils % 84.8 H Seg Neutrophils # 14.3 H Sodium 140 Potassium 4.6 Chloride 110.4 H Carbon Dioxide 17 L Anion Gap 17 BUN 29 H Creatinine 2.1 H Estimated GFR 39 BUN/Creatinine Ratio 14 Glucose 309 H POC Glucose 289 H Lactic Acid Calcium 7.8 L NT-Pro-B Natriuret Pep Assessment and Plan 1.GI bleed/rectal bleeding 2.colitis -H/H WNL (12.4/38.5-improved compared to previous) -continue to monitor H/H and transfuse as needed -BM x 1 this am with bright red blood mixed with stool. No hematemesis or melena. Likely 2/2 colitis. -EGD 03/2018 that showed duodenitis and diverticulum of duodenal bulb c/w hx of PUD -colonoscopy 04/2018 dilated colon c/w pseudoobstruction (no mass or obstruction) -abd CT on admission showed long segment inflammation of the descending colon down to the rectum suspected to be colitis (no perforation or abscess) -etiology unclear- possible infectious vs inflammatory vs ischemic -clinically, patient is stable w/o abd pain or N/V. Tolerating diet. -no plan for repeat scope at this time -stool studies if diarrhea develops -continue PPI and empiric antibiotics -continue supportive care -will follow
[2018-09-17] MEDS ORDERED: NACL 0.45% 1000 ML 1,000 ML IV SCH (15:00)
--- NOTE | 2018-09-17 15:45 | Progress Note ---
Assessment and Plan Full consult dictated. Abd distended. non tender. pt somewhat confused also s/p CVA exam somewhat unreliable elevated wbc, high lactic acid on admission. CT - descending colon and rectal colitis. as above r/o sepsis secondary to colitis keep NPO IV antibiotics ID eval condition guarded will follow Chief complaint: Im bleeding when I go to the bathroom, and my blood pressure is high History of present illness: 58 YO Male SNF Resident at [facility] with CVA with LHP, DM, HTN, HLD, Multiple Myeloma, CKD, Iron Deficiency Anemia, presents to ED for evaluation. Pt states that he has experienced several episodes of blood in his stool over the past 48 hours as well as high blood pressure. SNF staff also reports that the patient passed multiple blood clots. EMS notified and patient transported to [facility]. Pt seen and evaluated in ED and found to have Sepsis, GI Bleeding, Acute Renal Failure, and colitis. GI consulted in ED. pt admitted to [facility]. Surgery consulted as well. Pt denies fever, chills, CP, Palpitations, NVD, Trauma, Productive cough, and recent ill contacts, ingestion of food/water from new or different sourced. Pt states that nothing is wrong, and that he feels "just fine". However patient grimaces with movement, but denies pain upon abdominal exam. Pt is at bedside during exam and interview, and states that patient does not complain much. Previous admission 12/02/17 reviewed. All listed medication reconciled aat time of admission. Primary care Dr.: Dr. Mallory Nephrology: Dr. Barr Gastroenterology: Dr. Aceves Past History Past Medical History: cancer, diabetes, hypertension, hyperlipidemia, renal failure, stroke Past Surgical History: No surgical history, Other (reviewed) Social history: . denies: smoking, alcohol abuse Family history: diabetes, hypertension Selected Entries 09/17/18 09/17/18 09/17/18 09:00 10:00 12:00 Temperature 98.8 F Pulse Rate 96 H Respiratory 19 Rate Blood Pressure 93/67 Laboratory Tests 09/16/18 09/17/18 09/17/18 14:09 06:12 06:12 WBC 16.9 H Hgb 12.4 Hct 38.5 D Sodium 140 Potassium 4.6 Chloride 110.4 H Carbon Dioxide 17 L BUN 29 H Creatinine 2.1 H Lactic Acid 2.10 H* Objective Vital Signs - 12hr 09/17/18 09/17/18 09/17/18 04:00 04:30 05:00 Temperature Pulse Rate 96 H 95 H 93 H Respiratory 21 20 22 Rate Blood Pressure 122/80 113/75 97/66 O2 Sat by Pulse 95 94 94 Oximetry 09/17/18 09/17/18 09/17/18 06:00 07:00 08:00 Temperature 99.0 F 98.8 F Pulse Rate 93 H 90 84 Respiratory 27 H 26 H 20 Rate Blood Pressure 100/69 90/61 95/69 O2 Sat by Pulse 93 92 95 Oximetry 09/17/18 09/17/18 09/17/18 09:00 10:00 12:00 Temperature 98.8 F 98.8 F Pulse Rate 83 96 H Respiratory 19 Rate Blood Pressure 93/67 O2 Sat by Pulse 93 Oximetry - Labs 09/17/18 06:12 09/17/18 06:12 Diabetes panel 09/17/18 Range/Units 06:12 Sodium 140 (137-145) mmol/L Potassium 4.6 (3.6-5.0) mmol/L Chloride 110.4 H (98-107) mmol/L Carbon Dioxide 17 L (22-30) mmol/L BUN 29 H (9-20) mg/dL Creatinine 2.1 H (0.8-1.5) mg/dL Glucose 309 H (75-100) mg/dL Calcium 7.8 L (8.4-10.2) mg/dL Calcium panel 09/17/18 Range/Units 06:12 Calcium 7.8 L (8.4-10.2) mg/dL Pituitary panel 09/17/18 Range/Units 06:12 Sodium 140 (137-145) mmol/L Potassium 4.6 (3.6-5.0) mmol/L Chloride 110.4 H (98-107) mmol/L Carbon Dioxide 17 L (22-30) mmol/L BUN 29 H (9-20) mg/dL Creatinine 2.1 H (0.8-1.5) mg/dL Glucose 309 H (75-100) mg/dL Calcium 7.8 L (8.4-10.2) mg/dL Adrenal panel 09/17/18 Range/Units 06:12 Sodium 140 (137-145) mmol/L Potassium 4.6 (3.6-5.0) mmol/L Chloride 110.4 H (98-107) mmol/L Carbon Dioxide 17 L (22-30) mmol/L BUN 29 H (9-20) mg/dL Creatinine 2.1 H (0.8-1.5) mg/dL Glucose 309 H (75-100) mg/dL Calcium 7.8 L (8.4-10.2) mg/dL
[2018-09-17] MEDS: PRAVACHOL PO SCH (22:14)
[2018-09-17] MEDS: LANTUS SUB-Q SCH (22:18)
[2018-09-17] MEDS: SENOKOT S PO SCH (23:16)
--- NOTE | 2018-09-18 04:36 | Consultation ---
REASON FOR CONSULTATION: Abdominal pain, rule out gastrointestinal bleeding, rule out colitis. HISTORY OF PRESENT ILLNESS: The patient is a 58-year-old gentleman who is very stoic and somewhat disoriented. Family member states he does this periodically. Also, status post CVA, which again makes the abdominal exam somewhat unreliable. By history, it was stated that the nurses in the alf discovered some maroon blood in his stools and thus he was transferred here to the hospital. PAST MEDICAL HISTORY: Pertinent for CVA, hypertension, diabetes, and renal failure. PAST SURGICAL HISTORY: Negative. ALLERGIES: No known allergies. MEDICATIONS: Include metformin, Lasix, clonidine, nifedipine, glipizide, and labetalol. FAMILY HISTORY: Heart disease and diabetes. SOCIAL HISTORY: Denies any smoking or drinking. PHYSICAL EXAMINATION: GENERAL: At this time reveals the patient again to be disoriented and somewhat stoic. Most of the history is obtained from the family member and the chart. VITAL SIGNS: Show him to be afebrile with a temperature of 98.8, blood pressure is 93/67, pulse of 96, respirations 19. ABDOMEN: Examination of the abdomen reveals to be quite distended, but no tenderness can be elicited. Bowel sounds are hypoactive to absent. LABORATORY DATA: Lab work at present includes a CBC, which shows a white count of 16.9, H and H is 12 and 38. Previous H and H was 15.3 and 45.9 on admission. Electrolytes are essentially normal. Glucose is high at 309. A CT scan of the abdomen has been performed, which I have reviewed with the radiologist. A significant colitis was noted in the descending colon as well as the sigmoid colon and rectum. Lactic acid was also elevated on admission. IMPRESSION: 1. A 58-year-old gentleman, rule out sepsis secondary to colitis. 2. Rule out gastrointestinal bleeding. RECOMMENDATIONS: The patient was currently on a solid diet, but we have stopped this. We would recommend to keep the patient n.p.o. I will monitor the H and H. Monitor clinical exam. Also, recommend ID evaluation. Stool cultures will also be ordered. Condition is guarded. We need to monitor closely to assure that no surgical intervention is required. We will follow closely with you. Also, we will call and discuss with you. Thank you very much for consultation. JOB# [id number] BALDO/CELINA
[2018-09-18 05:51] LABS: Basophils % (Auto) 0.4 % (0.0-1.8); Eosinophils # (Auto) 0.2 K/mm3 (0.0-0.4); Hematocrit 36.4 % (35.5-45.6); Hemoglobin 11.8 gm/dl (11.8-15.2); Lymphocytes # (Auto) 1.2 K/mm3 (1.2-5.4); Lymphocytes % (Auto) 10.7 % (13.4-35.0); Mean Corpuscular HGB Conc 32 % (32-34); Mean Corpuscular Volume 81 fl (84-94); Monocytes # (Auto) 0.9 K/mm3 (0.0-0.8); Monocytes % (Auto) 7.9 % (0.0-7.3); Red Blood Count 4.47 M/mm3 (3.65-5.03); Red Cell Distribution Width 17.9 % (13.2-15.2)
[2018-09-18 06:11] LABS: Platelet Count 88 K/mm3 (140-440)
[2018-09-18 06:21] LABS: Albumin 2.4 g/dL (3.9-5); Calcium 8.1 mg/dL (8.4-10.2)
[2018-09-18] MEDS: FLAGYL 500 MG/100 ML 500 MG/100 ML BAG IV SCH ×3 (06:51→21:48)
--- NOTE | 2018-09-18 08:31 | Consultation ---
History of Present Illness - Reason for Consult Consult date: 09/18/18 chronic renal failure - History of Present Illness Mr. Nj is a 58yo male with stage III CKD who presented to the ED from SNF with GI bleed. Patient was reportedly passing blood clots. At present, patient denies abdominal pain, nausea and vomiting. He denies SOB. He reports LE edema which is chronic according to family. Past History Past Medical History: cancer, diabetes, hypertension, hyperlipidemia, renal failure, stroke Past Surgical History: No surgical history, Other (reviewed) Social history: . denies: smoking, alcohol abuse Family history: diabetes, hypertension Medications and Allergies Allergies Allergy/AdvReac Type Severity Reaction Status Date / Time No Known Allergies Allergy Verified 03/27/18 10:16 Home Medications Medication Instructions Recorded Confirmed Last Taken Type Labetalol HCl 300 mg PO BID 01/23/16 09/16/18 04/30/18 History cloNIDine [Catapres] 0.2 mg PO BID 01/23/16 09/16/18 04/30/18 History NIFEdipine XL [Procardia Xl] 90 mg PO QDAY #30 tablet 09/13/16 09/16/18 04/30/18 Rx Ergocalciferol [Vitamin D2] 1 cap PO QWEEK 12/12/17 09/16/18 Unknown History Furosemide [Lasix TAB] 40 mg PO QDAY 12/12/17 09/16/18 04/30/18 History Insulin Glargine,Hum.rec.anlog 15 units SUB-Q HS 12/12/17 09/16/18 12/12/17 History [Basaglar Kwikpen U-100] Insulin Glargine,Hum.rec.anlog 30 units SUB-Q QPM 12/12/17 09/16/18 04/30/18 History [Basaglar Kwikpen U-100] Lactulose [Constulose] 10 gm PO DAILY PRN 12/12/17 09/16/18 04/30/18 History Losartan [Cozaar] 100 mg PO QDAY 12/12/17 09/16/18 03/26/18 History Multivitamin Tab [Multiple Vitamin 1 each PO QDAY 12/12/17 09/16/18 04/30/18 History TAB (Theragran)] Potassium Chloride [K-Tab ER] 20 meq PO QDAY 12/12/17 09/16/18 04/30/18 History Pravastatin [Pravachol] 20 mg PO DAILY 12/12/17 09/16/18 04/30/18 History glipiZIDE [Glipizide] 10 mg PO QDAY 12/12/17 09/16/18 04/30/18 History Insulin Glargine [Lantus VIAL] 8 units SUB-Q QHS units 12/18/17 09/16/18 03/26/18 Rx Lispro Insulin [Humalog] 0 unit SUB-Q ACHS 09/16/18 09/16/18 Unknown History Active Meds: Active Medications Albuterol (Proventil) 2.5 mg IH Q3HRT PRN PRN Reason: Shortness Of Breath Ergocalciferol (Vitamin D2) 50,000 unit PO Mo@1000 JUAN ALBERTO Last Admin: 09/17/18 13:55 Dose: Not Given Documented by: Glipizide (Glucotrol) 10 mg PO QDDIAB [facility] Last Admin: 09/16/18 13:48 Dose: 10 mg Documented by: Hydralazine HCl (Apresoline) 10 mg IV Q6HR PRN PRN Reason: BP >160/100 Metronidazole (Flagyl 500 Mg/100 Ml) 500 mg in 100 mls @ 100 mls/hr IV Q8HR [facility]; Protocol Last Admin: 09/18/18 06:51 Dose: 100 mls/hr Documented by: Sodium Chloride (Nacl 0.45% 1000 Ml) 1,000 mls @ 125 mls/hr IV DIRECT JUAN ALBERTO Levofloxacin/Dextrose (Levaquin 750mg/150ml) 750 mg in 150 mls @ 100 mls/hr IV Q48HR [facility]; Protocol Insulin Glargine (Lantus) 8 units SUB-Q QHS JUAN ALBERTO Last Admin: 09/17/18 22:18 Dose: 8 units Documented by: Lactulose (Cephulac) 10 gm SC BID JUAN ALBERTO Morphine Sulfate (Morphine) 2 mg IV Q4H PRN PRN Reason: Pain, Moderate (4-6) Last Admin: 09/16/18 17:03 Dose: 2 mg Documented by: Multivitamins (Theragran Tab) 1 each PO QDAY [facility] Last Admin: 09/17/18 11:50 Dose: 1 each Documented by: Pantoprazole Sodium (Protonix) 40 mg IV BID [facility] Last Admin: 09/17/18 22:15 Dose: 40 mg Documented by: Potassium Chloride (K-Dur) 20 meq PO QDAY [facility] Last Admin: 09/17/18 11:52 Dose: Not Given Documented by: Pravastatin Sodium (Pravachol) 20 mg PO QHS [facility] Last Admin: 09/17/18 22:14 Dose: 20 mg Documented by: Senna/Docusate Sodium (Senokot S) 1 tab PO QHS [facility] Last Admin: 09/17/18 23:16 Dose: 1 tab Documented by: Sodium Chloride (Sodium Chloride Flush Syringe 10 Ml) 10 ml IV BID [facility] Last Admin: 09/17/18 22:19 Dose: 10 ml Documented by: Sodium Chloride (Sodium Chloride Flush Syringe 10 Ml) 10 ml IV PRN PRN PRN Reason: LINE FLUSH Review of Systems All systems: negative Exam - Vital Signs Vital signs: Vital Signs Temp Pulse Resp BP Pulse Ox 99.2 F 93 H 24 201/130 98 09/16/18 04:06 09/16/18 04:06 09/16/18 04:06 09/16/18 04:06 09/16/18 04:06 - General Appearance General appearance: well-developed, well-nourished EENT: ATNC Respiratory: Clear to Ascultation Heart: regular, S1S2 Gastrointestinal: Present: normal. Absent: tenderness, distended Integumentary: warm and dry Neurologic: no focal deficit Musculoskeletal: Present: other (Trace edema) Psychiatric: cooperative Results - Lab Results 09/19/18 05:11 09/18/18 05:28 Most recent lab results Calcium 8.1 mg/dL (8.4-10.2) L 09/18/18 05:28 Assessment and Plan Impression: * Stage III chronic kidney disease --Baseline SCr 2.6-2.8mg/dL since November 2017 * GI bleed * Accelerated hypertension * Type II DM Plan: * Renal function is stable, at baseline - continue current management * Abx per primary team * Surgery and GI recommendations noted * AntiHTN medication for BP control * Transfuse pRBC prn * Avoid potential nephrotoxins * Dose medications for renal function
[2018-09-18] MEDS ORDERED: D50W (25GM) Syringe IV PRN (09:03)
[2018-09-18] MEDS: APRESOLINE IV PRN ×2 (09:08→22:11)
[2018-09-18] MEDS: PROTONIX IV SCH ×2 (09:09→21:51)
[2018-09-18] MEDS: THERAGRAN Tab PO SCH (09:10)
[2018-09-18] MEDS: SODIUM CHLORIDE FLUSH SYRINGE 10 ML IV SCH ×2 (09:10→21:53)
[2018-09-18] MEDS: GLUCOTROL PO SCH (09:10)
[2018-09-18] MEDS: K-DUR PO SCH (09:10)
--- NOTE | 2018-09-18 09:23 | Progress Note ---
Assessment and Plan Assessment and plan: 58-year-old man with past medical history of dilated colon consistent with pseudoobstruction, iron deficiency anemia who presents from his [facility]. He was sent for elevated blood pressure and blood in his stool. Past medical history also includes hypertension, diabetes, CVA, hyperlipidemia and chronic kidney disease CT abdomen and pelvis -suspicious for colitis Diagnoses acute colitis Acute kidney injury/vasomotor nephropathy SIRS Hyperglycemia GI bleed acute blood loss, hg dropped from 15 to 12 Plan iv abx optimize BP meds transfuse as needed optimize insulins Case discussed with general surgery, continue antibiotics and keep patient nothing by mouth GI consult pending dvt ppx scds History Interval history: Patient complained of some bloody stools Review of systems Constitutional: No fevers, no malaise, no joint pains CVS: No chest pain, no orthopnea, no dyspnea on exertion, no pedal edema GI: No abdominal pain, no diarrhea, no vomiting, no constipation Respiratory: No shortness of breath, no wheezing, no coughing Hospitalist Physical - Physical exam Narrative exam: General.: Appears well, no distress, nontoxic HEENT: Moist mucous membranes, extraocular muscles intact, no lymphadenopathy Neck: supple Cardiac: S1-S2 heard Lungs: clear to auscultation bilaterally Abdomen: soft , nontender, distended, Extremities: no edema clubbing or cyanosis Skin: no rash or lesions Neurologic: Patient is aphasic Psych: calm, and cooperative - Constitutional Vitals: Temp Pulse Resp BP Pulse Ox 98.6 F 90 20 176/106 98 09/18/18 04:31 09/18/18 09:08 09/18/18 08:00 09/18/18 09:08 09/18/18 08:51 General appearance: Present: mild distress, obese Results - Labs CBC & Chem 7: 09/19/18 09:38 09/19/18 09:38 Labs: Laboratory Last Values WBC 11.3 K/mm3 (4.5-11.0) H 09/18/18 05:28 RBC 4.47 M/mm3 (3.65-5.03) 09/18/18 05:28 Hgb 11.8 gm/dl (11.8-15.2) 09/18/18 05:28 Hct 36.4 % (35.5-45.6) 09/18/18 05:28 MCV 81 fl (84-94) L 09/18/18 05:28 MCH 26 pg (28-32) L 09/18/18 05:28 MCHC 32 % (32-34) 09/18/18 05:28 RDW 17.9 % (13.2-15.2) H 09/18/18 05:28 Plt Count 88 K/mm3 (140-440) L 09/18/18 05:28 Lymph % (Auto) 10.7 % (13.4-35.0) L 09/18/18 05:28 [place] % (Auto) 7.9 % (0.0-7.3) H 09/18/18 05:28 Eos % (Auto) 2.0 % (0.0-4.3) 09/18/18 05:28 Baso % (Auto) 0.4 % (0.0-1.8) 09/18/18 05:28 Lymph # 1.2 K/mm3 (1.2-5.4) 09/18/18 05:28 [place] # 0.9 K/mm3 (0.0-0.8) H 09/18/18 05:28 Eos # 0.2 K/mm3 (0.0-0.4) 09/18/18 05:28 Baso # 0.0 K/mm3 (0.0-0.1) 09/18/18 05:28 Seg Neutrophils % 79.0 % (40.0-70.0) H 09/18/18 05:28 Seg Neutrophils # 8.9 K/mm3 (1.8-7.7) H 09/18/18 05:28 PT 13.1 Sec. (12.2-14.9) 09/16/18 04:35 INR 0.94 (0.87-1.13) 09/16/18 04:35 APTT 29.8 Sec. (24.2-36.6) 09/16/18 04:35 Sodium 140 mmol/L (137-145) 09/18/18 05:28 Potassium 3.8 mmol/L (3.6-5.0) 09/18/18 05:28 Chloride 110.9 mmol/L (98-107) H 09/18/18 05:28 Carbon Dioxide 20 mmol/L (22-30) L 09/18/18 05:28 Anion Gap 13 mmol/L 09/18/18 05:28 BUN 29 mg/dL (9-20) H 09/18/18 05:28 Creatinine 2.3 mg/dL (0.8-1.5) H 09/18/18 05:28 Estimated GFR 35 ml/min 09/18/18 05:28 BUN/Creatinine Ratio 13 % 09/18/18 05:28 Glucose 208 mg/dL (75-100) H 09/18/18 05:28 POC Glucose 179 (70-105) H 09/18/18 08:50 Lactic Acid 1.00 mmol/L (0.7-2.0) 09/16/18 23:19 Calcium 8.1 mg/dL (8.4-10.2) L 09/18/18 05:28 Total Bilirubin 0.20 mg/dL (0.1-1.2) 09/18/18 05:28 AST 10 units/L (5-40) 09/18/18 05:28 ALT 7 units/L (7-56) 09/18/18 05:28 Alkaline Phosphatase 115 units/L (35-129) 09/18/18 05:28 Total Creatine Kinase 43 units/L (55-170) L 09/16/18 10:39 NT-Pro-B Natriuret Pep 1592 pg/mL (0-900) H 09/16/18 16:44 Total Protein 5.6 g/dL (6.3-8.2) L 09/18/18 05:28 Albumin 2.4 g/dL (3.9-5) L 09/18/18 05:28 Albumin/Globulin Ratio 0.8 % 09/18/18 05:28 Urine Color Yellow (Yellow) 09/16/18 11:33 Urine Turbidity Clear (Clear) 09/16/18 11:33 Urine pH 6.0 (5.0-7.0) 09/16/18 11:33 Ur Specific [place] 1.026 (1.003-1.030) 09/16/18 11:33 Urine Protein >500 mg/dL (Negative) 09/16/18 11:33 Urine Glucose (UA) >=500 mg/dL (Negative) 09/16/18 11:33 Urine Ketones Neg mg/dL (Negative) 09/16/18 11:33 Urine Blood Neg (Negative) 09/16/18 11:33 Urine Nitrite Neg (Negative) 09/16/18 11:33 Urine Bilirubin Neg (Negative) 09/16/18 11:33 Urine Urobilinogen < 2.0 mg/dL (<2.0) 09/16/18 11:33 Ur Leukocyte Esterase Neg (Negative) 09/16/18 11:33 Urine WBC (Auto) 2.0 /HPF (0.0-6.0) 09/16/18 11:33 Urine RBC (Auto) 5.0 /HPF (0.0-6.0) 09/16/18 11:33 U Epithel Cells (Auto) < 1.0 /HPF (0-13.0) 09/16/18 11:33 Urine Bacteria (Auto) 1+ /HPF (Negative) 09/16/18 11:33 Urine Mucus Few /HPF 09/16/18 11:33 Blood Type O POSITIVE 09/16/18 04:35 Antibody Screen Negative 09/16/18 04:35 Active Medications - Current Medications Current Medications: Generic Name Dose Route Start Last Admin Trade Name Freq PRN Reason Stop Dose Admin Albuterol 2.5 mg 09/16/18 15:12 Proventil IH Q3HRT PRN Shortness Of Breath Dextrose 50 ml 09/18/18 09:03 D50w (25gm) Syringe IV PRN PRN Hypoglycemia Ergocalciferol 50,000 unit 09/17/18 10:00 09/17/18 13:55 Vitamin D2 PO Not Given Mo@1000 [facility] Glipizide 10 mg 09/16/18 14:00 09/18/18 09:10 Glucotrol PO Not Given QDDIAB [facility] Hydralazine HCl 10 mg 09/17/18 14:03 09/18/18 09:08 Apresoline IV 10 mg Q6HR PRN Administration BP >160/100 Metronidazole 500 mg in 100 mls @ 100 mls/hr 09/16/18 22:00 09/18/18 06:51 Flagyl 500 Mg/100 Ml IV 100 mls/hr Q8HR JUAN ALBERTO Administration Protocol Sodium Chloride 1,000 mls @ 125 mls/hr 09/17/18 15:00 Nacl 0.45% 1000 Ml IV DIRECT JUAN ALBERTO Levofloxacin/Dextrose 750 mg in 150 mls @ 100 mls/hr 09/19/18 10:00 Levaquin 750mg/150ml IV Q48HR [facility] Protocol Insulin Glargine 8 units 09/16/18 22:00 09/17/18 22:18 Lantus SUB-Q 8 units QHS JUAN ALBERTO Administration Insulin Human Regular 0 units 09/18/18 12:00 Humulin R SUB-Q Q6HR [facility] Protocol Lactulose 10 gm 09/17/18 22:00 Cephulac SC BID JUAN ALBERTO Morphine Sulfate 2 mg 09/16/18 15:40 09/16/18 17:03 Morphine IV 2 mg Q4H PRN Administration Pain, Moderate (4-6) Multivitamins 1 each 09/17/18 10:00 09/18/18 09:10 Theragran Tab PO Not Given QDAY JUAN ALBERTO Pantoprazole Sodium 40 mg 09/16/18 22:00 09/18/18 09:09 Protonix IV 40 mg BID JUAN ALBERTO Administration Potassium Chloride 20 meq 09/16/18 14:00 09/18/18 09:10 K-Dur PO Not Given QDAY JUAN ALBERTO Pravastatin Sodium 20 mg 09/16/18 22:00 09/17/18 22:14 Pravachol PO 20 mg QHS JUAN ALBERTO Administration Senna/Docusate Sodium 1 tab 09/17/18 22:00 09/17/18 23:16 Senokot S PO 1 tab QHS JUAN ALBERTO Administration Sodium Chloride 10 ml 09/16/18 22:00 09/18/18 09:10 Sodium Chloride Flush Syringe 10 Ml IV 10 ml BID JUAN ALBERTO Administration Sodium Chloride 10 ml 09/16/18 15:12 Sodium Chloride Flush Syringe 10 Ml IV PRN PRN LINE FLUSH
--- NOTE | 2018-09-18 10:04 | XRay Report ---
AP ABDOMEN: HISTORY: Abdominal pain. The CT abdomen pelvis dated 09/16/18 was reviewed. The intestinal gas pattern is unremarkable on KUB. There is mild to moderate gas throughout small and large bowel loops. A mild ileus could be considered. No evidence for obstruction or large free air. IMPRESSION: Unremarkable abdomen. A mild ileus could be considered.
--- NOTE | 2018-09-18 10:49 | Gastroenterology Progress Note ---
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[place] with chronic constipation -afebrile -WBC 11.3-trending down -H/H 11.8/36.4 -continue to monitor H/H and transfuse as needed -no active signs of bleeding overnight or this am (prior rectal bleeding likely 2/2 colitis) -EGD 03/2018 that showed duodenitis and diverticulum of duodenal bulb c/w hx of PUD -colonoscopy 04/2018 dilated colon c/w pseudoobstruction (no mass or obstruction) -abd CT on admission showed long segment inflammation of the descending colon down to the rectum suspected to be colitis (no perforation or abscess) and constipation -etiology-suspect ischemic based on location -clinically, patient is stable w/o abd pain or N/V. -no plan for repeat scope at this time -stool studies if diarrhea develops -okay to resume diet -continue daily bowel regimen with lactulose (okay for PO) -encourage OOB -continue PPI and empiric antibiotics x total of 7 days -continue supportive care -patient is okay to be d/c per GI standpoint on current above medications with f/u in clinic -will sign off, please call if needed Subjective Date of service: 09/18/18 Principal diagnosis: colitis Interval history: Patient resting in bed this am w/o acute distress with at bedside. No active signs of bleeding overnigh or this am per pt/nursing. Denies abd pain, N/V, or diarrhea. Objective - Constitutional Vitals: Temp Pulse Resp BP Pulse Ox 98.6 F 90 20 176/106 98 09/18/18 04:31 09/18/18 09:08 09/18/18 08:00 09/18/18 09:08 09/18/18 08:51 General appearance: no acute distress - Respiratory Respiratory: bilateral: CTA - Cardiovascular Rhythm: regular - Gastrointestinal General gastrointestinal: Present: soft, non-tender, distended, normal bowel sounds - Labs CBC & Chem 7: 09/18/18 05:28 09/18/18 05:28 Labs: Laboratory Results - last 24 hr 09/17/18 09/18/18 09/18/18 22:28 05:28 05:28 WBC 11.3 H RBC 4.47 Hgb 11.8 Hct 36.4 MCV 81 L MCH 26 L MCHC 32 RDW 17.9 H Plt Count 88 L Lymph % (Auto) 10.7 L [place] % (Auto) 7.9 H Eos % (Auto) 2.0 Baso % (Auto) 0.4 Lymph # 1.2 [place] # 0.9 H Eos # 0.2 Baso # 0.0 Seg Neutrophils % 79.0 H Seg Neutrophils # 8.9 H Sodium 140 Potassium 3.8 Chloride 110.9 H Carbon Dioxide 20 L Anion Gap 13 BUN 29 H Creatinine 2.3 H Estimated GFR 35 BUN/Creatinine Ratio 13 Glucose 208 H POC Glucose 218 H Calcium 8.1 L Total Bilirubin 0.20 AST 10 ALT 7 Alkaline Phosphatase 115 Total Protein 5.6 L Albumin 2.4 L Albumin/Globulin Ratio 0.8 09/18/18 08:50 WBC RBC Hgb Hct MCV MCH MCHC RDW Plt Count Lymph % (Auto) [place] % (Auto) Eos % (Auto) Baso % (Auto) Lymph # [place] # Eos # Baso # Seg Neutrophils % Seg Neutrophils # Sodium Potassium Chloride Carbon Dioxide Anion Gap BUN Creatinine Estimated GFR BUN/Creatinine Ratio Glucose POC Glucose 179 H Calcium Total Bilirubin AST ALT Alkaline Phosphatase Total Protein Albumin Albumin/Globulin Ratio
--- NOTE | 2018-09-18 11:22 | Consultation ---
History of Present Illness - Reason for Consult Consult date: 09/18/18 colitis Requesting physician: KASANDRA BLAS - History of Present Illness 58 y/o male with history of CVA with LHP, DM, HTN, HLD, Multiple Myeloma, CKD, anemia; admitted on 09/16/2018 due to 48 hour history of several episodes of passing red blood with clots per rectum. He is resident at [facility]. He reports constipation. Denies diarrhea. Denies fever, chills, recent ill contacts or travels. Denies abdominal pain. Patient is not the best historian. Difficult to obtain details from him. He has a recent GI evaluation for anemia with EGD/colonoscopy that showed duodenitis, diverticulum of duodenal bulb c/w hx of PUD, and a dilated colon c/w pseudo-obstruction (no mass or obstruction) with a pill cam pending as outpatient. Details obtained from at bedside. In the ED, temp 99.2, HR 93, R 24 O2 sat 98%, BP 201/130. WBC 17, Hg 15, Plat 163. Creat 1.6. CK 43-->1592. Lactate 1.8-->2.1. UA neg. Blood culture 09/16/2018 no growth today. Urine culture 09/16/2018 neg. Stool culture 09/16/[address] abd showed long segment inflammation of the descending colon down to the rectum suspected to be colitis (no perforation or abscess) and constipation. Review of Systems: limited Past History Past Medical History: cancer, diabetes, hypertension, hyperlipidemia, renal failure, stroke Past Surgical History: No surgical history, Other (reviewed) Social history: . denies: smoking, alcohol abuse Family history: diabetes, hypertension Medications and Allergies Allergies Allergy/AdvReac Type Severity Reaction Status Date / Time No Known Allergies Allergy Verified 03/27/18 10:16 Home Medications Medication Instructions Recorded Confirmed Last Taken Type Labetalol HCl 300 mg PO BID 01/23/16 09/16/18 04/30/18 History cloNIDine [Catapres] 0.2 mg PO BID 01/23/16 09/16/18 04/30/18 History NIFEdipine XL [Procardia Xl] 90 mg PO QDAY #30 tablet 09/13/16 09/16/18 04/30/18 Rx Ergocalciferol [Vitamin D2] 1 cap PO QWEEK 12/12/17 09/16/18 Unknown History Furosemide [Lasix TAB] 40 mg PO QDAY 12/12/17 09/16/18 04/30/18 History Insulin Glargine,Hum.rec.anlog 15 units SUB-Q HS 12/12/17 09/16/18 12/12/17 History [Basaglar Kwikpen U-100] Insulin Glargine,Hum.rec.anlog 30 units SUB-Q QPM 12/12/17 09/16/18 04/30/18 History [Basaglar Kwikpen U-100] Lactulose [Constulose] 10 gm PO DAILY PRN 12/12/17 09/16/18 04/30/18 History Losartan [Cozaar] 100 mg PO QDAY 12/12/17 09/16/18 03/26/18 History Multivitamin Tab [Multiple Vitamin 1 each PO QDAY 12/12/17 09/16/18 04/30/18 History TAB (Theragran)] Potassium Chloride [K-Tab ER] 20 meq PO QDAY 12/12/17 09/16/18 04/30/18 History Pravastatin [Pravachol] 20 mg PO DAILY 12/12/17 09/16/18 04/30/18 History glipiZIDE [Glipizide] 10 mg PO QDAY 12/12/17 09/16/18 04/30/18 History Insulin Glargine [Lantus VIAL] 8 units SUB-Q QHS units 12/18/17 09/16/18 03/26/18 Rx Lispro Insulin [Humalog] 0 unit SUB-Q ACHS 09/16/18 09/16/18 Unknown History Active Meds: Active Medications Albuterol (Proventil) 2.5 mg IH Q3HRT PRN PRN Reason: Shortness Of Breath Dextrose (D50w (25gm) Syringe) 50 ml IV PRN PRN PRN Reason: Hypoglycemia Ergocalciferol (Vitamin D2) 50,000 unit PO Mo@1000 [facility] Last Admin: 09/17/18 13:55 Dose: Not Given Documented by: Glipizide (Glucotrol) 10 mg PO QDDIAB [facility] Last Admin: 09/18/18 09:10 Dose: Not Given Documented by: Hydralazine HCl (Apresoline) 10 mg IV Q6HR PRN PRN Reason: BP >160/100 Last Admin: 09/18/18 09:08 Dose: 10 mg Documented by: Metronidazole (Flagyl 500 Mg/100 Ml) 500 mg in 100 mls @ 100 mls/hr IV Q8HR [facility]; Protocol Last Admin: 09/18/18 06:51 Dose: 100 mls/hr Documented by: Sodium Chloride (Nacl 0.45% 1000 Ml) 1,000 mls @ 125 mls/hr IV DIRECT JUAN ALBERTO Levofloxacin/Dextrose (Levaquin 750mg/150ml) 750 mg in 150 mls @ 100 mls/hr IV Q48HR [facility]; Protocol Insulin Glargine (Lantus) 8 units SUB-Q QHS [facility] Last Admin: 09/17/18 22:18 Dose: 8 units Documented by: Insulin Human Regular (Humulin R) 0 units SUB-Q Q6HR [facility]; Protocol Lactulose (Cephulac) [address] BID [facility] Morphine Sulfate (Morphine) 2 mg IV Q4H PRN PRN Reason: Pain, Moderate (4-6) Last Admin: 09/16/18 17:03 Dose: 2 mg Documented by: Multivitamins (Theragran Tab) 1 each PO QDAY [facility] Last Admin: 09/18/18 09:10 Dose: Not Given Documented by: Pantoprazole Sodium (Protonix) 40 mg IV BID [facility] Last Admin: 09/18/18 09:09 Dose: 40 mg Documented by: Potassium Chloride (K-Dur) 20 meq PO QDAY [facility] Last Admin: 09/18/18 09:10 Dose: Not Given Documented by: Pravastatin Sodium (Pravachol) 20 mg PO QHS [facility] Last Admin: 09/17/18 22:14 Dose: 20 mg Documented by: Senna/Docusate Sodium (Senokot S) 1 tab PO QHS [facility] Last Admin: 09/17/18 23:16 Dose: 1 tab Documented by: Sodium Chloride (Sodium Chloride Flush Syringe 10 Ml) 10 ml IV BID [facility] Last Admin: 09/18/18 09:10 Dose: 10 ml Documented by: Sodium Chloride (Sodium Chloride Flush Syringe 10 Ml) 10 ml IV PRN PRN PRN Reason: LINE FLUSH Physical Examination - Physical Exam Narrative exam: General appearance: Alert in NAD, conversant Eyes: anicteric sclerae, moist conjunctivae; no lid-lag; PERRLA HENT: Atraumatic; oropharynx clear with moist mucous membranes and no mucosal ulcerations/no oral thrush; normal hard and soft palate. Normal external ears. Neck: Trachea midline; supple, no thyromegaly or lymphadenopathy Lungs: CTA, with normal respiratory effort and no intercostal retractions CV: RRR, no murmurs Abdomen: Soft, distended non tender Extremities: No peripheral edema or extremity lymphadenopathy Skin: Normal temperature, turgor and texture; no rash, ulcers or subcutaneous nodules Psych: Appropriate affect, alert and oriented to person, place and time. Neuro: alert and oriented x 3. Moving all extermities - Constitutional Vitals: Vital Signs Temp Pulse Resp BP Pulse Ox 98.6 F 90 20 176/106 98 09/18/18 04:31 09/18/18 09:08 09/18/18 08:00 09/18/18 09:08 09/18/18 08:51 Temperature -Last 24 Hours Temperature 98.6 F Temperature 98.4 F Temperature 101.2 F Temperature 98.4 F Temperature 98.8 F Temperature 98.8 F Results - Labs CBC & Chem 7: 09/18/18 05:28 09/18/18 05:28 Labs: Abnormal lab results 09/17/18 09/18/18 09/18/18 Range/Units 22:28 05:28 05:28 WBC 11.3 H (4.5-11.0) K/mm3 MCV 81 L (84-94) fl MCH 26 L (28-32) pg RDW 17.9 H (13.2-15.2) % Plt Count 88 L (140-440) K/mm3 Lymph % (Auto) 10.7 L (13.4-35.0) % [place] % (Auto) 7.9 H (0.0-7.3) % [place] # 0.9 H (0.0-0.8) K/mm3 Seg Neutrophils % 79.0 H (40.0-70.0) % Seg Neutrophils # 8.9 H (1.8-7.7) K/mm3 Chloride 110.9 H (98-107) mmol/L Carbon Dioxide 20 L (22-30) mmol/L BUN 29 H (9-20) mg/dL Creatinine 2.3 H (0.8-1.5) mg/dL Glucose 208 H (75-100) mg/dL POC Glucose 218 H (70-105) Calcium 8.1 L (8.4-10.2) mg/dL Total Protein 5.6 L (6.3-8.2) g/dL Albumin 2.4 L (3.9-5) g/dL 09/18/18 Range/Units 08:50 WBC (4.5-11.0) K/mm3 MCV (84-94) fl MCH (28-32) pg RDW (13.2-15.2) % Plt Count (140-440) K/mm3 Lymph % (Auto) (13.4-35.0) % [place] % (Auto) (0.0-7.3) % [place] # (0.0-0.8) K/mm3 Seg Neutrophils % (40.0-70.0) % Seg Neutrophils # (1.8-7.7) K/mm3 Chloride (98-107) mmol/L Carbon Dioxide (22-30) mmol/L BUN (9-20) mg/dL Creatinine (0.8-1.5) mg/dL Glucose (75-100) mg/dL POC Glucose 179 H (70-105) Calcium (8.4-10.2) mg/dL Total Protein (6.3-8.2) g/dL Albumin (3.9-5) g/dL Assessment and Plan Cultures: Blood culture 09/16/2018 no growth today. Urine culture 09/16/2018 neg. Stool culture 09/16/2018 negative. Assessment: 58 y/o male with history of CVA with LHP, DM, HTN, HLD, Multiple Myeloma, CKD, anemia; admitted on 09/16/2018 due to 48 hour history of several episodes of passing red blood with clots per rectum: 1) Sepsis: Present on admission, manifested by tachycardia, leukocytosis, increased lactate, noted fever 101.2 on 09/17/2018. Etiology most likely colitis. UA neg. Blood culture 09/16/2018 no growth today. 2) Colitis: unclear if is ischemic, inflammatory v/s bacterial on top of dilated colon c/w pseudo-obstruction -CT abd showed long segment inflammation of the descending colon down to the rectum suspected to be colitis (no perforation or abscess) and constipation. -Stool culture 09/16/2018 negative. -Recent EGD/colonoscopy showed duodenitis, diverticulum of duodenal bulb c/w hx of PUD, and a dilated colon c/w pseudo-obstruction (no mass or obstruction) with a pill cam pending as outpatient. 3) GERMAIN ? dehydration ?blood loss Recommendations: - follow-up blood cultures - obtain C-reactive protein (CRP) - stop levaquin - start ceftriaxone - continue flagyl - monitor fever / bleeding - treat constipation Will follow. Lida Godoy MD Infectious Diseases [facility] M [phone] O [phone]
--- NOTE | 2018-09-18 13:19 | Progress Note ---
Assessment and Plan Pt status quo. Abd remains distended. non tender wbc down Abd series - ileus pattern imp significant distal colitis clinically stable keep NPO except for ice chips and meds monitor h/h continue present care Selected Entries 09/18/18 09/18/18 09:08 12:00 Temperature 99.3 F Pulse Rate 90 Blood Pressure 176/106 Laboratory Tests 09/17/18 09/18/18 06:12 05:28 WBC 16.9 H 11.3 H Hgb 12.4 11.8 Hct 38.5 D 36.4 Objective Vital Signs - 12hr 09/18/18 09/18/18 09/18/18 04:15 04:31 08:00 Temperature 98.6 F Pulse Rate Respiratory 20 20 Rate Blood Pressure O2 Sat by Pulse Oximetry 09/18/18 09/18/18 09/18/18 08:51 09:08 12:00 Temperature 99.3 F Pulse Rate 90 Respiratory Rate Blood Pressure 176/106 O2 Sat by Pulse 98 Oximetry - Labs 09/18/18 05:28 09/18/18 05:28 Diabetes panel 09/18/18 Range/Units 05:28 Sodium 140 (137-145) mmol/L Potassium 3.8 (3.6-5.0) mmol/L Chloride 110.9 H (98-107) mmol/L Carbon Dioxide 20 L (22-30) mmol/L BUN 29 H (9-20) mg/dL Creatinine 2.3 H (0.8-1.5) mg/dL Glucose 208 H (75-100) mg/dL Calcium 8.1 L (8.4-10.2) mg/dL AST 10 (5-40) units/L ALT 7 (7-56) units/L Alkaline Phosphatase 115 (35-129) units/L Total Protein 5.6 L (6.3-8.2) g/dL Albumin 2.4 L (3.9-5) g/dL Calcium panel 09/18/18 Range/Units 05:28 Calcium 8.1 L (8.4-10.2) mg/dL Albumin 2.4 L (3.9-5) g/dL Pituitary panel 09/18/18 Range/Units 05:28 Sodium 140 (137-145) mmol/L Potassium 3.8 (3.6-5.0) mmol/L Chloride 110.9 H (98-107) mmol/L Carbon Dioxide 20 L (22-30) mmol/L BUN 29 H (9-20) mg/dL Creatinine 2.3 H (0.8-1.5) mg/dL Glucose 208 H (75-100) mg/dL Calcium 8.1 L (8.4-10.2) mg/dL Adrenal panel 09/18/18 Range/Units 05:28 Sodium 140 (137-145) mmol/L Potassium 3.8 (3.6-5.0) mmol/L Chloride 110.9 H (98-107) mmol/L Carbon Dioxide 20 L (22-30) mmol/L BUN 29 H (9-20) mg/dL Creatinine 2.3 H (0.8-1.5) mg/dL Glucose 208 H (75-100) mg/dL Calcium 8.1 L (8.4-10.2) mg/dL Total Bilirubin 0.20 (0.1-1.2) mg/dL AST 10 (5-40) units/L ALT 7 (7-56) units/L Alkaline Phosphatase 115 (35-129) units/L Total Protein 5.6 L (6.3-8.2) g/dL Albumin 2.4 L (3.9-5) g/dL
[2018-09-18] MEDS: HumuLIN R SUB-Q SCH ×2 (13:44→17:16)
[2018-09-18] MEDS: CEPHULAC PR SCH (17:16)
[2018-09-18] MEDS: ROCEPHIN/NS 2 GM/100 ML 2 GM/100 ML BAG IV SCH (17:22)
[2018-09-18] MEDS: PRAVACHOL PO SCH (21:47)
[2018-09-18] MEDS: SENOKOT S PO SCH (21:48)
[2018-09-18] MEDS: LANTUS SUB-Q SCH (21:54)
[2018-09-19] MEDS: HumuLIN R SUB-Q SCH ×5 (02:57→23:37)
[2018-09-19 05:50] LABS: Basophils # (Auto) 0.1 K/mm3 (0.0-0.1); Basophils % (Auto) 0.6 % (0.0-1.8); Eosinophils # (Auto) 0.1 K/mm3 (0.0-0.4); Eosinophils % (Auto) 0.9 % (0.0-4.3); Hematocrit 35.8 % (35.5-45.6); Hemoglobin 11.6 gm/dl (11.8-15.2); Lymphocytes # (Auto) 1.2 K/mm3 (1.2-5.4); Lymphocytes % (Auto) 10.3 % (13.4-35.0); Mean Corpuscular HGB Conc 32 % (32-34); Mean Corpuscular Volume 82 fl (84-94); Monocytes # (Auto) 0.8 K/mm3 (0.0-0.8); Platelet Count 109 K/mm3 (140-440); Red Blood Count 4.38 M/mm3 (3.65-5.03)
[2018-09-19] MEDS: FLAGYL 500 MG/100 ML 500 MG/100 ML BAG IV SCH ×3 (06:22→23:32)
[2018-09-19] MEDS: APRESOLINE IV PRN (07:27)
[2018-09-19] MEDS: CEPHULAC PR SCH ×3 (08:20→22:00)
--- NOTE | 2018-09-19 08:37 | Progress Note ---
Assessment and Plan Cultures: Blood culture 09/16/2018 no growth today. Urine culture 09/16/2018 neg. Stool culture 09/16/2018 negative. Assessment: 58 y/o male with history of CVA with LHP, DM, HTN, HLD, Multiple Myeloma, CKD, a nemia; admitted on 09/16/2018 due to 48 hour history of several episodes of passing red blood with clots per rectum: 1) Sepsis: Present on admission, manifested by tachycardia, leukocytosis, increased lactate, noted fever 101.2 on 09/17/2018. Etiology most likely colitis. UA neg. Blood culture 09/16/2018 no growth today. 2) Severe Distal Colitis: unclear if is ischemic, inflammatory v/s bacterial on top of dilated colon. Doubt infectious. -CT abd showed long segment inflammation of the descending colon down to the rectum suspected to be colitis (no perforation or abscess) and constipation. -Stool culture 09/16/2018 negative. -Recent EGD/colonoscopy showed duodenitis, diverticulum of duodenal bulb c/w hx of PUD, and a dilated colon c/w pseudo-obstruction (no mass or obstruction) with a pill cam pending as outpatient. -CRP 9.8 3) GERMAIN: not better ? dehydration ?blood loss Recommendations: - follow-up blood cultures -continue ceftriaxone and flagyl D2 - monitor fever / bleeding - treat constipation - surgery on board Will follow. Lida Godoy MD Infectious Diseases [facility] M [phone] O [phone] Subjective Date of service: 09/19/18 Principal diagnosis: colitis Interval history: Patient reports feeling good, no fever, no N/V/D, reports one BM ROS as per HPI rest negative Objective - Exam Narrative Exam: General appearance: Alert in NAD, conversant Eyes: anicteric sclerae, moist conjunctivae; no lid-lag; PERRLA HENT: Atraumatic; oropharynx clear with moist mucous membranes and no mucosal ulcerations/no oral thrush; normal hard and soft palate. Normal external ears. Neck: Trachea midline; supple, no thyromegaly or lymphadenopathy Lungs: CTA, with normal respiratory effort and no intercostal retractions CV: RRR, no murmurs Abdomen: Soft, distended non tender Extremities: No peripheral edema or extremity lymphadenopathy Skin: Normal temperature, turgor and texture; no rash, ulcers or subcutaneous nodules Psych: Appropriate affect, alert and oriented to person, place and time. Neuro: alert and oriented x 3. Moving all extermities - Constitutional Vitals: Vital Signs Temp Pulse Resp BP Pulse Ox 99.1 F 100 H 21 174/102 98 09/19/18 00:00 09/19/18 07:27 09/19/18 04:00 09/19/18 07:27 09/18/18 08:51 Temperature -Last 24 Hours Temperature 99.1 F Temperature 99.0 F Temperature 99.3 F - Labs CBC & Chem 7: 09/19/18 05:11 09/18/18 05:28 Labs: Abnormal lab results 09/18/18 09/18/18 09/18/18 Range/Units 05:28 08:50 12:13 WBC (4.5-11.0) K/mm3 Hgb (11.8-15.2) gm/dl MCV (84-94) fl MCH (28-32) pg RDW (13.2-15.2) % Plt Count (140-440) K/mm3 Lymph % (Auto) (13.4-35.0) % Seg Neutrophils % (40.0-70.0) % Seg Neutrophils # (1.8-7.7) K/mm3 POC Glucose 179 H 207 H (70-105) C-Reactive Protein 9.80 H (0.00-1.30) mg/dL 09/18/18 09/19/18 09/19/18 Range/Units 23:35 05:11 06:14 WBC 11.9 H (4.5-11.0) K/mm3 Hgb 11.6 L (11.8-15.2) gm/dl MCV 82 L (84-94) fl MCH 27 L (28-32) pg RDW 18.0 H (13.2-15.2) % Plt Count 109 L (140-440) K/mm3 Lymph % (Auto) 10.3 L (13.4-35.0) % Seg Neutrophils % 81.2 H (40.0-70.0) % Seg Neutrophils # 9.7 H (1.8-7.7) K/mm3 POC Glucose 175 H 195 H (70-105) C-Reactive Protein (0.00-1.30) mg/dL
--- NOTE | 2018-09-19 08:51 | Progress Note ---
Assessment and Plan Pt status quo. no compl Abd - decreased distention. non tender abd series pending surgically stable sigmoid-rectal colitis uncontrolled HTN attempt cl liq no carbonated drinks Selected Entries 09/19/18 09/19/18 00:00 07:27 Temperature 99.1 F Pulse Rate 100 H Blood Pressure 174/102 Laboratory Tests 09/19/18 05:11 WBC 11.9 H Hgb 11.6 L Hct 35.8 Objective Vital Signs - 12hr 09/18/18 09/18/18 09/19/18 22:00 22:11 00:00 Temperature 99.1 F Pulse Rate 102 H 103 H Respiratory 18 Rate Blood Pressure 163/101 09/19/18 09/19/18 04:00 07:27 Temperature Pulse Rate 100 H Respiratory 21 Rate Blood Pressure 174/102 - Labs 09/19/18 05:11 09/18/18 05:28
--- NOTE | 2018-09-19 09:04 | Progress Note ---
Assessment and Plan Impression: * Stage III chronic kidney disease --Baseline SCr 2.6-2.8mg/dL since November 2017 * GI bleed * Accelerated hypertension * Type II DM Plan: * Renal function is stable, at baseline - continue current management * Abx per primary team * Surgery and GI recommendations noted * Resume Labetalol and Nifedipine XL * Transfuse pRBC prn * Avoid potential nephrotoxins * Dose medications for renal function * Diet per surgery - advanced to clears yesterday Subjective Date of service: 09/19/18 Principal diagnosis: colitis Interval history: Patient denies abdominal pain. No BRBPR, melena. Objective - Vital Signs Vital signs: Vital Signs - 12hr 09/18/18 09/18/18 09/19/18 22:00 22:11 00:00 Temperature 99.1 F Pulse Rate 102 H 103 H Respiratory 18 Rate Blood Pressure 163/101 09/19/18 09/19/18 04:00 07:27 Temperature Pulse Rate 100 H Respiratory 21 Rate Blood Pressure 174/102 - General Appearance General appearance: well-developed, well-nourished EENT: ATNC Respiratory: Present: Clear to Ascultation Cardiology: regular, S1S2 Gastrointestinal: normal, no tenderness, no distended Integumentary: warm and dry Neurologic: no focal deficit Musculoskeletal: other (1+ edema) Psychiatric: cooperative - Lab 09/20/18 07:20 09/20/18 07:20 Most recent lab results Calcium 8.1 mg/dL (8.4-10.2) L 09/18/18 05:28 Medications & Allergies - Medications Allergies/Adverse Reactions: Allergies No Known Allergies Allergy (Verified 03/27/18 10:16) Home Medications: Home Medications Medication Instructions Recorded Confirmed Last Taken Type Labetalol HCl 300 mg PO BID 01/23/16 09/16/18 04/30/18 History cloNIDine [Catapres] 0.2 mg PO BID 01/23/16 09/16/18 04/30/18 History NIFEdipine XL [Procardia Xl] 90 mg PO QDAY #30 tablet 09/13/16 09/16/18 04/30/18 Rx Ergocalciferol [Vitamin D2] 1 cap PO QWEEK 12/12/17 09/16/18 Unknown History Furosemide [Lasix TAB] 40 mg PO QDAY 12/12/17 09/16/18 04/30/18 History Insulin Glargine,Hum.rec.anlog 15 units SUB-Q HS 12/12/17 09/16/18 12/12/17 History [Basaglar Kwikpen U-100] Insulin Glargine,Hum.rec.anlog 30 units SUB-Q QPM 12/12/17 09/16/18 04/30/18 History [Basaglar Kwikpen U-100] Lactulose [Constulose] 10 gm PO DAILY PRN 12/12/17 09/16/18 04/30/18 History Losartan [Cozaar] 100 mg PO QDAY 12/12/17 09/16/18 03/26/18 History Multivitamin Tab [Multiple Vitamin 1 each PO QDAY 12/12/17 09/16/18 04/30/18 History TAB (Theragran)] Potassium Chloride [K-Tab ER] 20 meq PO QDAY 12/12/17 09/16/18 04/30/18 History Pravastatin [Pravachol] 20 mg PO DAILY 12/12/17 09/16/18 04/30/18 History glipiZIDE [Glipizide] 10 mg PO QDAY 12/12/17 09/16/18 04/30/18 History Insulin Glargine [Lantus VIAL] 8 units SUB-Q QHS units 12/18/17 09/16/18 03/26/18 Rx Lispro Insulin [Humalog] 0 unit SUB-Q ACHS 09/16/18 09/16/18 Unknown History Active Medications: Generic Name Dose Route Start Last Admin Trade Name Freq PRN Reason Stop Dose Admin Albuterol 2.5 mg 09/16/18 15:12 Proventil IH Q3HRT PRN Shortness Of Breath Dextrose 50 ml 09/18/18 09:03 D50w (25gm) Syringe IV PRN PRN Hypoglycemia Ergocalciferol 50,000 unit 09/17/18 10:00 09/17/18 13:55 Vitamin D2 PO Not Given Mo@1000 JUAN ALBERTO Glipizide 10 mg 09/16/18 14:00 09/18/18 09:10 Glucotrol PO Not Given QDDIAB JUAN ALBERTO Hydralazine HCl 10 mg 09/17/18 14:03 09/19/18 07:27 Apresoline IV 10 mg Q6HR PRN Administration BP >160/100 Metronidazole 500 mg in 100 mls @ 100 mls/hr 09/16/18 22:00 09/19/18 06:22 Flagyl 500 Mg/100 Ml IV 100 mls/hr Q8HR JUAN ALBERTO Administration Protocol Sodium Chloride 1,000 mls @ 125 mls/hr 09/17/18 15:00 Nacl 0.45% 1000 Ml IV DIRECT JUAN ALBERTO Ceftriaxone Sodium 2 gm in 100 mls @ 200 mls/hr 09/18/18 14:00 09/18/18 17:22 Rocephin/Ns 2 Gm/100 Ml IV Not Given Q24H [facility] Protocol Insulin Glargine 8 units 09/16/18 22:00 09/18/18 21:54 Lantus SUB-Q Not Given QHS [facility] Insulin Human Regular 0 units 09/18/18 12:00 09/19/18 08:20 Humulin R SUB-Q Not Given Q6HR [facility] Protocol Labetalol HCl 300 mg 09/19/18 10:00 Normodyne PO BID [facility] Lactulose 10 gm 09/17/18 22:00 09/19/18 08:20 Cephulac TN Not Given BID [facility] Morphine Sulfate 2 mg 09/16/18 15:40 09/16/18 17:03 Morphine IV 2 mg Q4H PRN Administration Pain, Moderate (4-6) Multivitamins 1 each 09/17/18 10:00 09/18/18 09:10 Theragran Tab PO Not Given QDAY [facility] Pantoprazole Sodium 40 mg 09/16/18 22:00 09/18/18 21:51 Protonix IV 40 mg BID [facility] Administration Potassium Chloride 20 meq 09/16/18 14:00 09/18/18 09:10 K-Dur PO Not Given QDAY [facility] Pravastatin Sodium 20 mg 09/16/18 22:00 09/18/18 21:47 Pravachol PO 20 mg QHS [facility]ERT[facility] Administration Senna/Docusate Sodium 1 tab 09/17/18 22:00 09/18/18 21:48 Senokot S PO 1 tab QHS [facility] Administration Sodium Chloride 10 ml 09/16/18 22:00 09/18/18 21:53 Sodium Chloride Flush Syringe 10 Ml IV 10 ml BID JUAN ALBERTO Administration Sodium Chloride 10 ml 09/16/18 15:12 Sodium Chloride Flush Syringe 10 Ml IV PRN PRN LINE FLUSH
[2018-09-19] MEDS: PROTONIX IV SCH (09:29)
[2018-09-19] MEDS: THERAGRAN Tab PO SCH (09:29)
[2018-09-19] MEDS: K-DUR PO SCH (09:29)
[2018-09-19] MEDS: GLUCOTROL PO SCH ×2 (09:29→09:30)
--- NOTE | 2018-09-19 09:29 | XRay Report ---
ABDOMINAL SERIES: History: Small bowel obstruction. Erect chest film shows no acute or significant changes involving the heart or lung [place]. There is no evidence of free air beneath the diaphragms. The gas pattern within the abdomen is unremarkable. There is no evidence of bowel dilatation, significant air-fluid levels, or masses. Organ shadows are unremarkable. IMPRESSION: Abdominal series within normal limits. Gas-filled loops of bowel seen on yesterday's exam have essentially resolved.
[2018-09-19] MEDS: SODIUM CHLORIDE FLUSH SYRINGE 10 ML IV SCH ×2 (09:31→22:00)
[2018-09-19] MEDS ORDERED: LEVAQUIN 750MG/150ML 750 MG/150 ML BAG IV SCH (10:00)
[2018-09-19] MEDS ORDERED: NORMODYNE PO SCH (10:00)
[2018-09-19 10:11] LABS: Basophils # (Auto) 0.1 K/mm3 (0.0-0.1); Basophils % (Auto) 0.4 % (0.0-1.8); Eosinophils # (Auto) 0.1 K/mm3 (0.0-0.4); Eosinophils % (Auto) 0.8 % (0.0-4.3); Hematocrit 37.2 % (35.5-45.6); Hemoglobin 12.3 gm/dl (11.8-15.2); Lymphocytes # (Auto) 1.7 K/mm3 (1.2-5.4); Lymphocytes % (Auto) 12.2 % (13.4-35.0); Mean Corpuscular HGB Conc 33 % (32-34); Mean Corpuscular Volume 81 fl (84-94); Monocytes % (Auto) 7.4 % (0.0-7.3); Platelet Count 120 K/mm3 (140-440); Red Blood Count 4.61 M/mm3 (3.65-5.03)
[2018-09-19 10:24] LABS: Calcium 8.1 mg/dL (8.4-10.2)
--- NOTE | 2018-09-19 13:38 | Gastroenterology Progress Note ---
Assessment and Plan - Patient Problems (1) Acute hemorrhagic colitis Current Visit: Yes Status: Acute Plan to address problem: - Unclear if ischemic v infectious (suspect ischemic) and improved over last 2 days. - Tolerating liquid diet, and hct stable/KUB improved. - OK to d/c tomorrow on short course (5 days; today is day 3) of antibiotics, if tolerating regular diet. - OK to resume blood thinners/ASA for heart, etc on Sunday 09/24. - Will sign off; please call with questions. Subjective Date of service: 09/19/18 Principal diagnosis: Colitis Interval history: The patient has had no N/V/abdominal pain with liquid diet today. He had one BM with a trace of blood, improved from prior BMs. Objective - Constitutional Vitals: Temp Pulse Resp BP Pulse Ox 99.1 F 102 H 21 174/102 98 09/19/18 00:00 09/19/18 10:00 09/19/18 08:00 09/19/18 07:27 09/18/18 08:51 General appearance: no acute distress - Respiratory Respiratory effort: normal Respiratory: bilateral: CTA - Cardiovascular Rhythm: regular Heart Sounds: Present: S1 & S2 - Gastrointestinal General gastrointestinal: Present: soft, non-tender, non-distended - Labs CBC & Chem 7: 09/19/18 09:38 09/19/18 09:38 Labs: Laboratory Results - last 24 hr 09/18/18 09/19/18 09/19/18 23:35 05:11 06:14 WBC 11.9 H RBC 4.38 Hgb 11.6 L Hct 35.8 MCV 82 L MCH 27 L MCHC 32 RDW 18.0 H Plt Count 109 L Lymph % (Auto) 10.3 L White % (Auto) 7.0 Eos % (Auto) 0.9 Baso % (Auto) 0.6 Lymph # 1.2 White # 0.8 Eos # 0.1 Baso # 0.1 Seg Neutrophils % 81.2 H Seg Neutrophils # 9.7 H Sodium Potassium Chloride Carbon Dioxide Anion Gap BUN Creatinine Estimated GFR BUN/Creatinine Ratio Glucose POC Glucose 175 H 195 H Calcium 09/19/18 09/19/18 09/19/18 09:38 09:38 12:36 WBC 13.6 H RBC 4.61 Hgb 12.3 Hct 37.2 MCV 81 L MCH 27 L MCHC 33 RDW 18.0 H Plt Count 120 L Lymph % (Auto) 12.2 L White % (Auto) 7.4 H Eos % (Auto) 0.8 Baso % (Auto) 0.4 Lymph # 1.7 White # 1.0 H Eos # 0.1 Baso # 0.1 Seg Neutrophils % 79.2 H Seg Neutrophils # 10.8 H Sodium 141 Potassium 3.7 Chloride 110.3 H Carbon Dioxide 16 L Anion Gap 18 BUN 25 H Creatinine 1.9 H Estimated GFR 44 BUN/Creatinine Ratio 13 Glucose 254 H POC Glucose 238 H Calcium 8.1 L
[2018-09-19] MEDS: ROCEPHIN/NS 2 GM/100 ML 2 GM/100 ML BAG IV SCH (15:36)
[2018-09-19] MEDS: PROCARDIA XL PO SCH (15:44)
[2018-09-19] MEDS: NORMODYNE PO SCH ×2 (15:44→23:35)
--- NOTE | 2018-09-19 18:30 | Progress Note ---
Assessment and Plan Assessment and plan: 58-year-old man with past medical history of dilated colon consistent with pseudoobstruction, iron deficiency anemia who presents from his long term. He was sent for elevated blood pressure and blood in his stool. Past medical history also includes hypertension, diabetes, CVA, hyperlipidemia and chronic kidney disease CT abdomen and pelvis -suspicious for colitis Diagnoses acute colitis, may be infectious and or ischemic per GI Acute kidney injury/vasomotor nephropathy on CKD SIRS Hyperglycemia GI bleed acute blood loss, hg dropped from 15 to 12 Plan iv abx, avoid nephrotoxins optimize BP meds transfuse as needed optimize insulins Case discussed with general surgery and GI, continue antibiotics , advance diet per GS dvt ppx scds History Interval history: Review of systems Constitutional: No fevers, no malaise, no joint pains CVS: No chest pain, no orthopnea, no dyspnea on exertion, no pedal edema GI: No abdominal pain, no diarrhea, no vomiting, no constipation Respiratory: No shortness of breath, no wheezing, no coughing Hospitalist Physical - Physical exam Narrative exam: General.: Appears well, no distress, nontoxic HEENT: Moist mucous membranes, extraocular muscles intact, no lymphadenopathy Neck: supple Cardiac: S1-S2 heard Lungs: clear to auscultation bilaterally Abdomen: soft , nontender, not distended Extremities: no edema clubbing or cyanosis Skin: no rash or lesions Neurologic: Patient is aphasic Psych: calm, and cooperative - Constitutional Vitals: Temp Pulse Resp BP Pulse Ox 99.1 F 92 H 21 175/111 98 09/19/18 00:00 09/19/18 15:44 09/19/18 16:00 09/19/18 15:44 09/18/18 08:51 General appearance: Present: mild distress, obese Results - Labs CBC & Chem 7: 09/19/18 09:38 09/19/18 09:38 Labs: Laboratory Last Values WBC 13.6 K/mm3 (4.5-11.0) H 09/19/18 09:38 RBC 4.61 M/mm3 (3.65-5.03) 09/19/18 09:38 Hgb 12.3 gm/dl (11.8-15.2) 09/19/18 09:38 Hct 37.2 % (35.5-45.6) 09/19/18 09:38 MCV 81 fl (84-94) L 09/19/18 09:38 MCH 27 pg (28-32) L 09/19/18 09:38 MCHC 33 % (32-34) 09/19/18 09:38 RDW 18.0 % (13.2-15.2) H 09/19/18 09:38 Plt Count 120 K/mm3 (140-440) L 09/19/18 09:38 Lymph % (Auto) 12.2 % (13.4-35.0) L 09/19/18 09:38 [place] % (Auto) 7.4 % (0.0-7.3) H 09/19/18 09:38 Eos % (Auto) 0.8 % (0.0-4.3) 09/19/18 09:38 Baso % (Auto) 0.4 % (0.0-1.8) 09/19/18 09:38 Lymph # 1.7 K/mm3 (1.2-5.4) 09/19/18 09:38 [place] # 1.0 K/mm3 (0.0-0.8) H 09/19/18 09:38 Eos # 0.1 K/mm3 (0.0-0.4) 09/19/18 09:38 Baso # 0.1 K/mm3 (0.0-0.1) 09/19/18 09:38 Seg Neutrophils % 79.2 % (40.0-70.0) H 09/19/18 09:38 Seg Neutrophils # 10.8 K/mm3 (1.8-7.7) H 09/19/18 09:38 PT 13.1 Sec. (12.2-14.9) 09/16/18 04:35 INR 0.94 (0.87-1.13) 09/16/18 04:35 APTT 29.8 Sec. (24.2-36.6) 09/16/18 04:35 Sodium 141 mmol/L (137-145) 09/19/18 09:38 Potassium 3.7 mmol/L (3.6-5.0) 09/19/18 09:38 Chloride 110.3 mmol/L (98-107) H 09/19/18 09:38 Carbon Dioxide 16 mmol/L (22-30) L 09/19/18 09:38 Anion Gap 18 mmol/L 09/19/18 09:38 BUN 25 mg/dL (9-20) H 09/19/18 09:38 Creatinine 1.9 mg/dL (0.8-1.5) H 09/19/18 09:38 Estimated GFR 44 ml/min 09/19/18 09:38 BUN/Creatinine Ratio 13 % 09/19/18 09:38 Glucose 254 mg/dL (75-100) H 09/19/18 09:38 POC Glucose 203 (70-105) H 09/19/18 17:45 Lactic Acid 1.00 mmol/L (0.7-2.0) 09/16/18 23:19 Calcium 8.1 mg/dL (8.4-10.2) L 09/19/18 09:38 Total Bilirubin 0.20 mg/dL (0.1-1.2) 09/18/18 05:28 AST 10 units/L (5-40) 09/18/18 05:28 ALT 7 units/L (7-56) 09/18/18 05:28 Alkaline Phosphatase 115 units/L (35-129) 09/18/18 05:28 Total Creatine Kinase 43 units/L (55-170) L 09/16/18 10:39 C-Reactive Protein 9.80 mg/dL (0.00-1.30) H 09/18/18 05:28 NT-Pro-B Natriuret Pep 1592 pg/mL (0-900) H 09/16/18 16:44 Total Protein 5.6 g/dL (6.3-8.2) L 09/18/18 05:28 Albumin 2.4 g/dL (3.9-5) L 09/18/18 05:28 Albumin/Globulin Ratio 0.8 % 09/18/18 05:28 Urine Color Yellow (Yellow) 09/16/18 11:33 Urine Turbidity Clear (Clear) 09/16/18 11:33 Urine pH 6.0 (5.0-7.0) 09/16/18 11:33 Ur Specific [place] 1.026 (1.003-1.030) 09/16/18 11:33 Urine Protein >500 mg/dL (Negative) 09/16/18 11:33 Urine Glucose (UA) >=500 mg/dL (Negative) 09/16/18 11:33 Urine Ketones Neg mg/dL (Negative) 09/16/18 11:33 Urine Blood Neg (Negative) 09/16/18 11:33 Urine Nitrite Neg (Negative) 09/16/18 11:33 Urine Bilirubin Neg (Negative) 09/16/18 11:33 Urine Urobilinogen < 2.0 mg/dL (<2.0) 09/16/18 11:33 Ur Leukocyte Esterase Neg (Negative) 09/16/18 11:33 Urine WBC (Auto) 2.0 /HPF (0.0-6.0) 09/16/18 11:33 Urine RBC (Auto) 5.0 /HPF (0.0-6.0) 09/16/18 11:33 U Epithel Cells (Auto) < 1.0 /HPF (0-13.0) 09/16/18 11:33 Urine Bacteria (Auto) 1+ /HPF (Negative) 09/16/18 11:33 Urine Mucus Few /HPF 09/16/18 11:33 Blood Type O POSITIVE 09/16/18 04:35 Antibody Screen Negative 09/16/18 04:35 Active Medications - Current Medications Current Medications: Generic Name Dose Route Start Last Admin Trade Name Freq PRN Reason Stop Dose Admin Albuterol 2.5 mg 09/16/18 15:12 Proventil IH Q3HRT PRN Shortness Of Breath Dextrose 50 ml 09/18/18 09:03 D50w (25gm) Syringe IV PRN PRN Hypoglycemia Ergocalciferol 50,000 unit 09/17/18 10:00 09/17/18 13:55 Vitamin D2 PO Not Given Mo@1000 JUAN ALBERTO Glipizide 10 mg 09/16/18 14:00 09/19/18 09:30 Glucotrol PO 10 mg QDDIAB JUAN ALBERTO Administration Hydralazine HCl 10 mg 09/17/18 14:03 09/19/18 07:27 Apresoline IV 10 mg Q6HR PRN Administration BP >160/100 Metronidazole 500 mg in 100 mls @ 100 mls/hr 09/16/18 22:00 09/19/18 15:37 Flagyl 500 Mg/100 Ml IV 100 mls/hr Q8HR JUAN ALBERTO Administration Protocol Sodium Chloride 1,000 mls @ 125 mls/hr 09/17/18 15:00 Nacl 0.45% 1000 Ml IV DIRECT JUAN ALBERTO Ceftriaxone Sodium 2 gm in 100 mls @ 200 mls/hr 09/18/18 14:00 09/19/18 15:36 Rocephin/Ns 2 Gm/100 Ml IV 200 mls/hr Q24H JUAN ALBERTO Administration Protocol Insulin Glargine 8 units 09/16/18 22:00 09/18/18 21:54 Lantus SUB-Q Not Given QHS JUAN ALBERTO Insulin Human Regular 0 units 09/18/18 12:00 09/19/18 17:09 Humulin R SUB-Q Not Given Q6HR [facility] Protocol Labetalol HCl 300 mg 09/19/18 12:00 09/19/18 15:44 Normodyne PO 300 mg BID JUAN ALBERTO Administration Lactulose 10 gm 09/17/18 22:00 09/19/18 15:41 Cephulac ID Not Given BID [facility] Morphine Sulfate 2 mg 09/16/18 15:40 09/16/18 17:03 Morphine IV 2 mg Q4H PRN Administration Pain, Moderate (4-6) Multivitamins 1 each 09/17/18 10:00 09/19/18 09:29 Theragran Tab PO 1 each QDAY [facility] Administration Nifedipine 90 mg 09/19/18 12:00 09/19/18 15:44 Procardia Xl PO 90 mg QDAY JUAN ALBERTO Administration Pantoprazole Sodium 40 mg 09/20/18 10:00 Protonix PO DAILY [facility] Potassium Chloride 20 meq 09/16/18 14:00 09/19/18 09:29 K-Dur PO 20 meq QDAY JUAN ALBERTO Administration Pravastatin Sodium 20 mg 09/16/18 22:00 09/18/18 21:47 Pravachol PO 20 mg QHS JUAN ALBERTO Administration Senna/Docusate Sodium 1 tab 09/17/18 22:00 09/18/18 21:48 Senokot S PO 1 tab QHS JUAN ALBERTO Administration Sodium Chloride 10 ml 09/16/18 22:00 09/19/18 09:31 Sodium Chloride Flush Syringe 10 Ml IV 10 ml BID JUAN ALBERTO Administration Sodium Chloride 10 ml 09/16/18 15:12 Sodium Chloride Flush Syringe 10 Ml IV PRN PRN LINE FLUSH
[2018-09-19] MEDS: LANTUS SUB-Q SCH (23:36)
[2018-09-19] MEDS: SENOKOT S PO SCH (23:38)
[2018-09-19] MEDS: PRAVACHOL PO SCH (23:39)
[2018-09-20 06:52] VITALS: BP 152/88
[2018-09-20] MEDS: FLAGYL 500 MG/100 ML 500 MG/100 ML BAG IV SCH (06:56)
[2018-09-20] MEDS: HumuLIN R SUB-Q SCH ×2 (07:12→11:30)
[2018-09-20 07:41] LABS: Hematocrit 33.8 % (35.5-45.6); Hemoglobin 11.2 gm/dl (11.8-15.2); Red Blood Count 4.17 M/mm3 (3.65-5.03)
[2018-09-20 07:42] LABS: Basophils # (Auto) 0.1 K/mm3 (0.0-0.1); Basophils % (Auto) 1.3 % (0.0-1.8); Eosinophils # (Auto) 0.3 K/mm3 (0.0-0.4); Eosinophils % (Auto) 2.9 % (0.0-4.3); Lymphocytes # (Auto) 1.9 K/mm3 (1.2-5.4); Lymphocytes % (Auto) 17.6 % (13.4-35.0); Mean Corpuscular HGB Conc 33 % (32-34); Mean Corpuscular Volume 81 fl (84-94); Monocytes # (Auto) 0.9 K/mm3 (0.0-0.8); Monocytes % (Auto) 8.6 % (0.0-7.3); Platelet Count 115 K/mm3 (140-440); Red Cell Distribution Width 17.5 % (13.2-15.2)
[2018-09-20 08:06] LABS: Calcium 7.7 mg/dL (8.4-10.2)
[2018-09-20] MEDS ORDERED: PROTONIX PO SCH (10:00)
--- NOTE | 2018-09-20 10:01 | Progress Note ---
Assessment and Plan Impression: * Stage III chronic kidney disease --Baseline SCr 2.6-2.8mg/dL since November 2017 * GI bleed * Accelerated hypertension * Type II DM Plan: * Renal function is stable, at baseline - continue current management * Abx per primary team * Surgery and GI recommendations noted * Continue antiHTN medications - will resume Losartan; continue Labetalol and Nifedipine * Transfuse pRBC prn * Avoid potential nephrotoxins * Dose medications for renal function * Diet per GI/surgery Subjective Date of service: 09/20/18 Principal diagnosis: colitis Interval history: Patient is tolerating clear diet. He denies abdominal pain, N/V. No melena, BRPBR Objective - Vital Signs Vital signs: Vital Signs - 12hr 09/19/18 09/20/18 09/20/18 23:35 00:50 05:45 Temperature 98.5 F 99.4 F 99.1 F Pulse Rate 98 H 93 H 86 Respiratory 20 20 20 Rate Blood Pressure 144/93 137/89 152/88 O2 Sat by Pulse 97 96 97 Oximetry - General Appearance General appearance: well-developed, well-nourished EENT: ATNC Respiratory: Present: Clear to Ascultation Cardiology: regular, S1S2 Gastrointestinal: normal, no tenderness, no distended Integumentary: no rash, warm and dry Musculoskeletal: other (trace LE edema; right hand edema) Psychiatric: cooperative - Lab 09/20/18 07:20 09/20/18 07:20 Most recent lab results Calcium 7.7 mg/dL (8.4-10.2) L 09/20/18 07:20 Medications & Allergies - Medications Allergies/Adverse Reactions: Allergies No Known Allergies Allergy (Verified 03/27/18 10:16) Home Medications: Home Medications Medication Instructions Recorded Confirmed Last Taken Type Labetalol HCl 300 mg PO BID 01/23/16 09/16/18 04/30/18 History cloNIDine [Catapres] 0.2 mg PO BID 01/23/16 09/16/18 04/30/18 History NIFEdipine XL [Procardia Xl] 90 mg PO QDAY #30 tablet 09/13/16 09/16/18 04/30/18 Rx Ergocalciferol [Vitamin D2] 1 cap PO QWEEK 12/12/17 09/16/18 Unknown History Furosemide [Lasix TAB] 40 mg PO QDAY 12/12/17 09/16/18 04/30/18 History Insulin Glargine,Hum.rec.anlog 15 units SUB-Q HS 12/12/17 09/16/18 12/12/17 History [Basaglar Kwikpen U-100] Insulin Glargine,Hum.rec.anlog 30 units SUB-Q QPM 12/12/17 09/16/18 04/30/18 History [Basaglar Kwikpen U-100] Lactulose [Constulose] 10 gm PO DAILY PRN 12/12/17 09/16/18 04/30/18 History Losartan [Cozaar] 100 mg PO QDAY 12/12/17 09/16/18 03/26/18 History Multivitamin Tab [Multiple Vitamin 1 each PO QDAY 12/12/17 09/16/18 04/30/18 History TAB (Theragran)] Potassium Chloride [K-Tab ER] 20 meq PO QDAY 12/12/17 09/16/18 04/30/18 History Pravastatin [Pravachol] 20 mg PO DAILY 12/12/17 09/16/18 04/30/18 History glipiZIDE [Glipizide] 10 mg PO QDAY 12/12/17 09/16/18 04/30/18 History Insulin Glargine [Lantus VIAL] 8 units SUB-Q QHS units 12/18/17 09/16/18 03/26/18 Rx Lispro Insulin [Humalog] 0 unit SUB-Q ACHS 09/16/18 09/16/18 Unknown History Active Medications: Generic Name Dose Route Start Last Admin Trade Name Freq PRN Reason Stop Dose Admin Albuterol 2.5 mg 09/16/18 15:12 Proventil IH Q3HRT PRN Shortness Of Breath Dextrose 50 ml 09/18/18 09:03 D50w (25gm) Syringe IV PRN PRN Hypoglycemia Ergocalciferol 50,000 unit 09/17/18 10:00 09/17/18 13:55 Vitamin D2 PO Not Given Mo@1000 JUAN ALBERTO Glipizide 10 mg 09/16/18 14:00 09/19/18 09:30 Glucotrol PO 10 mg QDDIAB JUAN ALBERTO Administration Hydralazine HCl 10 mg 09/17/18 14:03 09/19/18 07:27 Apresoline IV 10 mg Q6HR PRN Administration BP >160/100 Metronidazole 500 mg in 100 mls @ 100 mls/hr 09/16/18 22:00 09/20/18 06:56 Flagyl 500 Mg/100 Ml IV 100 mls/hr Q8HR JUAN ALBERTO Administration Protocol Sodium Chloride 1,000 mls @ 125 mls/hr 09/17/18 15:00 09/19/18 23:25 Nacl 0.45% 1000 Ml IV 125 mls/hr DIRECT JUAN ALBERTO Administration Ceftriaxone Sodium 2 gm in 100 mls @ 200 mls/hr 09/18/18 14:00 09/19/18 15:36 Rocephin/Ns 2 Gm/100 Ml IV 200 mls/hr Q24H JUAN ALBERTO Administration Protocol Insulin Glargine 8 units 09/16/18 22:00 09/19/18 23:36 Lantus SUB-Q 8 units QHS JUAN ALBERTO Administration Insulin Human Regular 0 units 09/18/18 12:00 09/20/18 07:12 Humulin R SUB-Q 2 units Q6HR JUAN ALBERTO Administration Protocol Labetalol HCl 300 mg 09/19/18 12:00 09/19/18 23:35 Normodyne PO 300 mg BID JUAN ALBERTO Administration Lactulose 10 gm 09/17/18 22:00 09/19/18 22:00 Cephulac NC Not Given BID JUAN ALBERTO Morphine Sulfate 2 mg 09/16/18 15:40 09/16/18 17:03 Morphine IV 2 mg Q4H PRN Administration Pain, Moderate (4-6) Multivitamins 1 each 09/17/18 10:00 09/19/18 09:29 Theragran Tab PO 1 each QDAY JUAN ALBERTO Administration Nifedipine 90 mg 09/19/18 12:00 09/19/18 15:44 Procardia Xl PO 90 mg QDAY JUAN ALBERTO Administration Pantoprazole Sodium 40 mg 09/20/18 10:00 Protonix PO DAILY JUAN ALBERTO Potassium Chloride 20 meq 09/16/18 14:00 09/19/18 09:29 K-Dur PO 20 meq QDAY JUAN ALBERTO Administration Pravastatin Sodium 20 mg 09/16/18 22:00 09/19/18 23:39 Pravachol PO 20 mg QHS JUAN ALBERTO Administration Senna/Docusate Sodium 1 tab 09/17/18 22:00 09/19/18 23:38 Senokot S PO 1 tab QHS JUAN ALBERTO Administration Sodium Chloride 10 ml 09/16/18 22:00 09/19/18 22:00 Sodium Chloride Flush Syringe 10 Ml IV 10 ml BID JUAN ALBERTO Administration Sodium Chloride 10 ml 09/16/18 15:12 Sodium Chloride Flush Syringe 10 Ml IV PRN PRN LINE FLUSH
--- NOTE | 2018-09-20 10:18 | Progress Note ---
Assessment and Plan Assessment and Plan Cultures: Blood culture 09/16/2018 no growth . Urine culture 09/16/2018 neg. Stool culture 09/16/2018 negative. Stool Aspirate 09/16/2018 positive Assessment: 58 y/o male with history of CVA with LHP, DM, HTN, HLD, Multiple Myeloma, CKD, anemia; admitted on 09/16/2018 due to 48 hour history of several episodes of passing red blood with clots per rectum: 1) Sepsis: Present on admission, Resolved. Etiology most likely colitis. UA neg. Blood culture 09/16/2018 , no growth.. 2) Severe Distal Colitis: unclear if is ischemic, inflammatory v/s bacterial on top of dilated colon. Doubt infectious. -CT abd showed long segment inflammation of the descending colon down to the rectum suspected to be colitis (no perforation or abscess) and constipation. -Stool culture 09/16/2018 negative. -Recent EGD/colonoscopy showed duodenitis, diverticulum of duodenal bulb c/w hx of PUD, and a dilated colon c/w pseudo-obstruction (no mass or obstruction) with a pill cam pending as outpatient. -CRP 9.8 3) [place]: not better ? dehydration ?blood loss 4) thrombocytopenic: likely medication related Recommendations: - follow-up blood cultures -discontinue ceftriaxone -remains afebrile, monitor bleeding -Start Levaquin 750mg, PO every 48 hours total 7 days ending 09-24-18 and Flagyl 500 mg PO every 8 hours total 7 days ending 09-23-18 (CrCl 37.1) [facility] M: [id number] O:[phone] Subjective Date of service: 09/20/18 Principal diagnosis: colitis Interval history: Patient seen and examined. No abdominal pain, SOB or fevers. Family at bedside. Objective - Exam Narrative Exam: Narrative Exam: General appearance: Alert in NAD, conversant Eyes: anicteric sclerae, moist conjunctivae; no lid-lag; PERRLA HENT: Atraumatic; oropharynx clear with moist mucous membranes and no mucosal ulcerations/no oral thrush; normal hard and soft palate. Normal external ears. Neck: Trachea midline; supple, no thyromegaly or lymphadenopathy Lungs: CTA, with normal respiratory effort and no intercostal retractions CV: RRR, no murmurs Abdomen: Soft, distended non tender Extremities: No peripheral edema or extremity lymphadenopathy Skin: Normal temperature, turgor and texture; no rash, ulcers or subcutaneous nodules Psych: Appropriate affect, alert and oriented to person, place and time. Neuro: alert and oriented x 3. Moving all extermities - Constitutional Vitals: Vital Signs Temp Pulse Resp BP Pulse Ox 99.1 F 86 20 152/88 97 09/20/18 05:45 09/20/18 05:45 09/20/18 05:45 09/20/18 05:45 09/20/18 05:45 Temperature -Last 24 Hours Temperature 99.1 F Temperature 99.4 F Temperature 98.5 F - Labs CBC & Chem 7: 09/20/18 07:20 09/20/18 07:20 Labs: Abnormal lab results 09/19/18 09/19/18 09/19/18 Range/Units 09:38 12:36 17:45 Hgb (11.8-15.2) gm/dl Hct (35.5-45.6) % MCV (84-94) fl MCH (28-32) pg RDW (13.2-15.2) % Plt Count (140-440) K/mm3 [place] % (Auto) (0.0-7.3) % [place] # (0.0-0.8) K/mm3 Potassium (3.6-5.0) mmol/L Chloride 110.3 H (98-107) mmol/L Carbon Dioxide 16 L (22-30) mmol/L BUN 25 H (9-20) mg/dL Creatinine 1.9 H (0.8-1.5) mg/dL Glucose 254 H (75-100) mg/dL POC Glucose 238 H 203 H (70-105) Calcium 8.1 L (8.4-10.2) mg/dL 09/19/18 09/20/18 09/20/18 Range/Units 21:27 05:47 07:20 Hgb 11.2 L (11.8-15.2) gm/dl Hct 33.8 L (35.5-45.6) % MCV 81 L (84-94) fl MCH 27 L (28-32) pg RDW 17.5 H (13.2-15.2) % Plt Count 115 L (140-440) K/mm3 [place] % (Auto) 8.6 H (0.0-7.3) % [place] # 0.9 H (0.0-0.8) K/mm3 Potassium (3.6-5.0) mmol/L Chloride (98-107) mmol/L Carbon Dioxide (22-30) mmol/L BUN (9-20) mg/dL Creatinine (0.8-1.5) mg/dL Glucose (75-100) mg/dL POC Glucose 293 H 202 H (70-105) Calcium (8.4-10.2) mg/dL 09/20/18 09/20/18 Range/Units 07:20 08:03 Hgb (11.8-15.2) gm/dl Hct (35.5-45.6) % MCV (84-94) fl MCH (28-32) pg RDW (13.2-15.2) % Plt Count (140-440) K/mm3 [place] % (Auto) (0.0-7.3) % [place] # (0.0-0.8) K/mm3 Potassium 3.5 L (3.6-5.0) mmol/L Chloride 113.2 H (98-107) mmol/L Carbon Dioxide 19 L (22-30) mmol/L BUN 23 H (9-20) mg/dL Creatinine 1.7 H (0.8-1.5) mg/dL Glucose 201 H (75-100) mg/dL POC Glucose 201 H (70-105) Calcium 7.7 L (8.4-10.2) mg/dL
[2018-09-20] MEDS ORDERED: COZAAR PO SCH (10:30)
--- NOTE | 2018-09-20 10:33 | Progress Note ---
Hospitalist Physical - Constitutional Vitals: Temp Pulse Resp BP Pulse Ox 99.1 F 86 20 152/88 97 09/20/18 05:45 09/20/18 05:45 09/20/18 05:45 09/20/18 05:45 09/20/18 05:45 General appearance: Present: mild distress, obese Results - Labs CBC & Chem 7: 09/20/18 07:20 09/20/18 07:20 Labs: Laboratory Last Values WBC 10.9 K/mm3 (4.5-11.0) 09/20/18 07:20 RBC 4.17 M/mm3 (3.65-5.03) 09/20/18 07:20 Hgb 11.2 gm/dl (11.8-15.2) L 09/20/18 07:20 Hct 33.8 % (35.5-45.6) L 09/20/18 07:20 MCV 81 fl (84-94) L 09/20/18 07:20 MCH 27 pg (28-32) L 09/20/18 07:20 MCHC 33 % (32-34) 09/20/18 07:20 RDW 17.5 % (13.2-15.2) H 09/20/18 07:20 Plt Count 115 K/mm3 (140-440) L 09/20/18 07:20 Lymph % (Auto) 17.6 % (13.4-35.0) 09/20/18 07:20 [place] % (Auto) 8.6 % (0.0-7.3) H 09/20/18 07:20 Eos % (Auto) 2.9 % (0.0-4.3) 09/20/18 07:20 Baso % (Auto) 1.3 % (0.0-1.8) 09/20/18 07:20 Lymph # 1.9 K/mm3 (1.2-5.4) 09/20/18 07:20 [place] # 0.9 K/mm3 (0.0-0.8) H 09/20/18 07:20 Eos # 0.3 K/mm3 (0.0-0.4) 09/20/18 07:20 Baso # 0.1 K/mm3 (0.0-0.1) 09/20/18 07:20 Seg Neutrophils % 69.6 % (40.0-70.0) 09/20/18 07:20 Seg Neutrophils # 7.6 K/mm3 (1.8-7.7) 09/20/18 07:20 PT 13.1 Sec. (12.2-14.9) 09/16/18 04:35 INR 0.94 (0.87-1.13) 09/16/18 04:35 APTT 29.8 Sec. (24.2-36.6) 09/16/18 04:35 Sodium 144 mmol/L (137-145) 09/20/18 07:20 Potassium 3.5 mmol/L (3.6-5.0) L 09/20/18 07:20 Chloride 113.2 mmol/L (98-107) H 09/20/18 07:20 Carbon Dioxide 19 mmol/L (22-30) L 09/20/18 07:20 Anion Gap 15 mmol/L 09/20/18 07:20 BUN 23 mg/dL (9-20) H 09/20/18 07:20 Creatinine 1.7 mg/dL (0.8-1.5) H 09/20/18 07:20 Estimated GFR 50 ml/min 09/20/18 07:20 BUN/Creatinine Ratio 14 % 09/20/18 07:20 Glucose 201 mg/dL (75-100) H 09/20/18 07:20 POC Glucose 201 (70-105) H 09/20/18 08:03 Lactic Acid 1.00 mmol/L (0.7-2.0) 09/16/18 23:19 Calcium 7.7 mg/dL (8.4-10.2) L 09/20/18 07:20 Total Bilirubin 0.20 mg/dL (0.1-1.2) 09/18/18 05:28 AST 10 units/L (5-40) 09/18/18 05:28 ALT 7 units/L (7-56) 09/18/18 05:28 Alkaline Phosphatase 115 units/L (35-129) 09/18/18 05:28 Total Creatine Kinase 43 units/L (55-170) L 09/16/18 10:39 C-Reactive Protein 9.80 mg/dL (0.00-1.30) H 09/18/18 05:28 NT-Pro-B Natriuret Pep 1592 pg/mL (0-900) H 09/16/18 16:44 Total Protein 5.6 g/dL (6.3-8.2) L 09/18/18 05:28 Albumin 2.4 g/dL (3.9-5) L 09/18/18 05:28 Albumin/Globulin Ratio 0.8 % 09/18/18 05:28 Urine Color Yellow (Yellow) 09/16/18 11:33 Urine Turbidity Clear (Clear) 09/16/18 11:33 Urine pH 6.0 (5.0-7.0) 09/16/18 11:33 Ur Specific [place] 1.026 (1.003-1.030) 09/16/18 11:33 Urine Protein >500 mg/dL (Negative) 09/16/18 11:33 Urine Glucose (UA) >=500 mg/dL (Negative) 09/16/18 11:33 Urine Ketones Neg mg/dL (Negative) 09/16/18 11:33 Urine Blood Neg (Negative) 09/16/18 11:33 Urine Nitrite Neg (Negative) 09/16/18 11:33 Urine Bilirubin Neg (Negative) 09/16/18 11:33 Urine Urobilinogen < 2.0 mg/dL (<2.0) 09/16/18 11:33 Ur Leukocyte Esterase Neg (Negative) 09/16/18 11:33 Urine WBC (Auto) 2.0 /HPF (0.0-6.0) 09/16/18 11:33 Urine RBC (Auto) 5.0 /HPF (0.0-6.0) 09/16/18 11:33 U Epithel Cells (Auto) < 1.0 /HPF (0-13.0) 09/16/18 11:33 Urine Bacteria (Auto) 1+ /HPF (Negative) 09/16/18 11:33 Urine Mucus Few /HPF 09/16/18 11:33 Blood Type O POSITIVE 09/16/18 04:35 Antibody Screen Negative 09/16/18 04:35 Active Medications - Current Medications Current Medications: Generic Name Dose Route Start Last Admin Trade Name Freq PRN Reason Stop Dose Admin Albuterol 2.5 mg 09/16/18 15:12 Proventil IH Q3HRT PRN Shortness Of Breath Dextrose 50 ml 09/18/18 09:03 D50w (25gm) Syringe IV PRN PRN Hypoglycemia Ergocalciferol 50,000 unit 09/17/18 10:00 09/17/18 13:55 Vitamin D2 PO Not Given Mo@1000 JUAN ALBERTO Glipizide 10 mg 09/16/18 14:00 09/19/18 09:30 Glucotrol PO 10 mg QDDIAB JUAN ALBERTO Administration Hydralazine HCl 10 mg 09/17/18 14:03 09/19/18 07:27 Apresoline IV 10 mg Q6HR PRN Administration BP >160/100 Metronidazole 500 mg in 100 mls @ 100 mls/hr 09/16/18 22:00 09/20/18 06:56 Flagyl 500 Mg/100 Ml IV 100 mls/hr Q8HR JUAN ALBERTO Administration Protocol Sodium Chloride 1,000 mls @ 125 mls/hr 09/17/18 15:00 09/19/18 23:25 Nacl 0.45% 1000 Ml IV 125 mls/hr DIRECT JUAN ALBERTO Administration Ceftriaxone Sodium 2 gm in 100 mls @ 200 mls/hr 09/18/18 14:00 09/19/18 15:36 Rocephin/Ns 2 Gm/100 Ml IV 200 mls/hr Q24H JUAN ALBERTO Administration Protocol Insulin Glargine 8 units 09/16/18 22:00 09/19/18 23:36 Lantus SUB-Q 8 units QHS JUAN ALBERTO Administration Insulin Human Regular 0 units 09/18/18 12:00 09/20/18 07:12 Humulin R SUB-Q 2 units Q6HR JUAN ALBERTO Administration Protocol Labetalol HCl 300 mg 09/19/18 12:00 09/19/18 23:35 Normodyne PO 300 mg BID JUAN ALBERTO Administration Lactulose 10 gm 09/17/18 22:00 09/19/18 22:00 Cephulac NC Not Given BID JUAN ALBERTO Losartan Potassium 100 mg 09/20/18 10:30 Cozaar PO QDAY JUAN ALBERTO Morphine Sulfate 2 mg 09/16/18 15:40 09/16/18 17:03 Morphine IV 2 mg Q4H PRN Administration Pain, Moderate (4-6) Multivitamins 1 each 09/17/18 10:00 09/19/18 09:29 Theragran Tab PO 1 each QDAY JUAN ALBERTO Administration Nifedipine 90 mg 09/19/18 12:00 09/19/18 15:44 Procardia Xl PO 90 mg QDAY JUAN ALBERTO Administration Pantoprazole Sodium 40 mg 09/20/18 10:00 Protonix PO DAILY JUAN ALBERTO Potassium Chloride 20 meq 09/16/18 14:00 09/19/18 09:29 K-Dur PO 20 meq QDAY JUAN ALBERTO Administration Pravastatin Sodium 20 mg 09/16/18 22:00 09/19/18 23:39 Pravachol PO 20 mg QHS JUAN ALBERTO Administration Senna/Docusate Sodium 1 tab 09/17/18 22:00 09/19/18 23:38 Senokot S PO 1 tab QHS JUAN ALBERTO Administration Sodium Chloride 10 ml 09/16/18 22:00 09/19/18 22:00 Sodium Chloride Flush Syringe 10 Ml IV 10 ml BID JUAN ALBERTO Administration Sodium Chloride 10 ml 09/16/18 15:12 Sodium Chloride Flush Syringe 10 Ml IV PRN PRN LINE FLUSH
[2018-09-20] MEDS: NORMODYNE PO SCH (11:05)
[2018-09-20] MEDS: K-DUR PO SCH (11:06)
[2018-09-20] MEDS: PROCARDIA XL PO SCH (11:06)
[2018-09-20] MEDS: THERAGRAN Tab PO SCH (11:06)
[2018-09-20] MEDS: SODIUM CHLORIDE FLUSH SYRINGE 10 ML IV SCH (11:07)
[2018-09-20] MEDS: GLUCOTROL PO SCH (11:07)
--- NOTE | 2018-09-20 11:32 | Discharge Summary ---
Providers - Providers Date of Admission: 09/16/18 15:12 Attending physician: CULLEN COE MD 09/16/18 15:20 Consult to Physician [CONS] Routine Comment: Consulting Provider: JESUS REVELES Physician Instructions: Reason For Exam: gi bleed 09/16/18 15:38 Consult to Physician [CONS] Routine Comment: Consulting Provider: KASANDRA BLAS Physician Instructions: Reason For Exam: Colitis 09/17/18 14:07 Consult to Physician [CONS] Routine Comment: Consulting Provider: RANI GALVAN Physician Instructions: Reason For Exam: yousif 09/17/18 15:40 Consult to Physician [CONS] Routine Comment: Consulting Provider: VEENA GRIMES Physician Instructions: Reason For Exam: colitis Primary care physician: CANDIDO PATIÑO Hospitalization Condition: Fair Hospital course: 58-year-old man with past medical history of dilated colon consistent with pseudoobstruction, iron deficiency anemia who [facility]. He was sent for elevated blood pressure and blood in his stool. Past medical history also includes hypertension, diabetes, CVA, hyperlipidemia and chronic kidney disease CT abdomen and pelvis -suspicious for colitis Hospital course -He received IV antibiotics, IV fluids, nephrotoxins were avoided, his diuretics were held His medications optimized for his chronic conditions. He was initially kept nothing by mouth, but has improved, his diet was advanced. He has 2 more days of antibiotics which he'll complete at a prison in pill form, he was also started on stool softeners. GI bleeding resolved while he was in hospital, his blood count dropped but did not require transfusion Diagnoses acute colitis, may be infectious and or ischemic per GI Acute kidney injury/vasomotor nephropathy on CKD Sepsis Hyperglycemia GI bleed acute blood loss, hg dropped from 15 to 12 Disposition: [id number]/TX-[id number] [facility] Time spent for discharge: 33 mins Core Measure Documentation - Palliative Care Palliative Care/ Comfort Measures: Not Applicable - Core Measures Any of the following diagnoses?: none Exam - Physical Exam Narrative exam: General.: Appears well, no distress, nontoxic HEENT: Moist mucous membranes, extraocular muscles intact, no lymphadenopathy Neck: supple Cardiac: S1-S2 heard Lungs: clear to auscultation bilaterally Abdomen: soft , nontender, not distended Extremities: no edema clubbing or cyanosis Skin: no rash or lesions Neurologic: Patient is aphasic Psych: calm, and cooperative - Constitutional Vitals: Temp Pulse Resp BP Pulse Ox 99.1 F 86 20 152/88 97 09/20/18 05:45 09/20/18 11:06 09/20/18 05:45 09/20/18 11:06 09/20/18 05:45 Plan Follow up with: CANDIDO PATIÑO MD [Primary Care Provider] - 3-5 Days Forms: Accompanied Note Prescriptions: Ciprofloxacin HCl [Cipro] 500 mg PO BID 2 Days tablet metroNIDAZOLE [Flagyl] 500 mg PO Q8HR 2 Days #2 tablet
[2018-09-20] MEDS: CEPHULAC PR SCH (12:53)
[2018-09-20] MEDS ORDERED: LEVAQUIN PO SCH (16:00)
[2018-09-20] MEDS ORDERED: FLAGYL PO SCH (22:00)
== END 2018-09-20 15:00 | DRG 871 ==
LOC: ED 03:48 → IMCU 15:12 → 3A 09-19 19:04
PROVIDERS: ADMIT Internal Medicine; ATTEND Internal Medicine
DX: A41.9 Sepsis, unspecified organism (principal); N17.0 Acute kidney failure with tubular necrosis; K92.2 Gastrointestinal hemorrhage, unspecified; I69.354 Hemiplegia and hemiparesis following cerebral infarction affecting left non-dominant side; E87.2 Acidosis; C90.00 Multiple myeloma not having achieved remission; A09 Infectious gastroenteritis and colitis, unspecified; K55.9 Vascular disorder of intestine, unspecified; E11.65 Type 2 diabetes mellitus with hyperglycemia; I16.0 Hypertensive urgency; N18.3 Chronic kidney disease, stage 3 (moderate); E78.00 Pure hypercholesterolemia, unspecified; E11.22 Type 2 diabetes mellitus with diabetic chronic kidney disease; Z83.3 Family history of diabetes mellitus; Z82.49 Family history of ischemic heart disease and other diseases of the circulatory system; Z79.4 Long term (current) use of insulin; Z79.899 Other long term (current) drug therapy
CPT/HCPCS: 36415; 71045; 74018; 74022; 74176; 80048; 80053; 81001; 82140; 82271; 82550; 82962; 83880; 85025; 85610; 85730; 86140; 86850; 86900; 86901; 87040; 87045; 87086; 96365; 96366; 96375; G0378; A9270-GY; C9113; J0360; J0696; J1815; J1956; J2270; J7030